=== PATIENT | male | born 1935 | race Caucasian/White ===

== ENCOUNTER 2017-02-14 08:00 | Outpatient (CLI) | payer MEDICARE, OTHER | END 2017-02-14 08:01 | disposition home or self-care (01) | LOC: LAB.F 08:00 | PROVIDERS: ATTEND Urology | DX: C61 Malignant neoplasm of prostate (principal) | CPT/HCPCS: 36415; 84153 ==

== ENCOUNTER 2017-04-18 09:48 | Outpatient (CLI) | payer MEDICARE ==
--- NOTE | 2017-04-19 09:03 | Nuclear Medicine Report ---
EXAM: NUCLEAR MEDICINE MYOCARDIAL PERFUSION STRESS AND REST EXAM DATE: 04/18/2017 02:28 PM. CLINICAL HISTORY: CHEST PRESSURE, coronary artery disease. COMPARISON: None. TECHNIQUE: Patient given 10.8 mCi technetium 99m sestamibi IV for the rest portion of the study. Afte r this, non-gated cardiac SPECT scintigraphy performed with multiplanar reformats. After an appropriate delay, patient exercised 6 minutes on a Omar treadmill protocol. Near peak stre ss, patient given 38.7 mCi technetium 99m sestamibi IV. After this, cardiac gated SPECT scintigraphy performed with multiplanar reformats, wall motion analysis, and left ventricular ejection fraction es timation. FINDINGS: There is a small focus of mild increased activity in the inferolateral mid ventricle on stress which normalizes on rest. Otherwise uniform activity in the left ventricular myocardium on stress and rest. Wall motion is uniform. Left ventricular ejection fraction estimated at 64%. IMPRESSION: 1. Small focus mild ischemia inferolateral mid ventricle. 2. Left ventricular ejection fraction estimated at 64%. [facility] Referring Provider Line: [phone] SITE ID: [id number]
== END 2017-04-18 09:49 | disposition home or self-care (01) ==
LOC: DI 09:48
PROVIDERS: ATTEND Internal Medicine
DX: I25.9 Chronic ischemic heart disease, unspecified (principal)
CPT/HCPCS: 78452; 93017; A9500

== ENCOUNTER 2017-05-04 09:32 | Outpatient (CLI) | payer MEDICARE | END 2017-05-04 09:33 | disposition home or self-care (01) | LOC: LAB.F 09:32 | PROVIDERS: ATTEND Internal Medicine | DX: E03.9 Hypothyroidism, unspecified (principal) | CPT/HCPCS: 36415; 84443 ==

== ENCOUNTER 2017-08-19 09:44 | Outpatient (CLI) | payer MEDICARE, OTHER | END 2017-08-19 09:45 | disposition home or self-care (01) | LOC: LAB.F 09:44 | PROVIDERS: ATTEND Urology | DX: C61 Malignant neoplasm of prostate (principal) | CPT/HCPCS: 36415; 84153 ==

== ENCOUNTER 2017-10-31 08:29 | Outpatient (CLI) | payer MEDICARE, OTHER ==
--- NOTE | 2017-10-31 10:29 | CT Report ---
CT OF ABDOMEN AND PELVIS WITHOUT CONTRAST: 10/31/2017 CLINICAL INDICATION: Flank pain. TECHNIQUE: Axial CT images of the abdomen and pelvis were obtained without intravenous contrast. COMPARISON: 04/12/2009. FINDINGS: Limited evaluation of the lung bases demonstrates a small hiatal hernia. ABDOMEN: The right kidney is atrophic. Right nonobstructing renal calculus has increased in size, now measuring 6 mm (previously 3 mm). The left kidney demonstrates cysts , but no nephrolithiasis or hydronephrosis. The previously noted left distal ureteral calculus has resolved. Allowing for the lack of intravenous contrast enhancement, the liver , spleen, pancreas and adrenal glands are unremarkable. The patient is status post cholecystectomy. No bowel dilatation, free gas, or free fluid is present. No abdominal adenopathy is seen. PELVIS: Fiducial markers are noted in the prostate bed. No distal hydroureter or ureterolithiasis is seen. No bladder calculus is appreciated. Sigmoid diverticulosis is present, without CT evidence of diverticulitis. Osseous structures demonstrate degenerative changes. IMPRESSION: ATROPHIC RIGHT KIDNEY, WITH INTERVAL INCREASE IN SIZE OF NONOBSTRUCTING RIGHT RENAL CALCULUS, NOW MEASURING 6 MM. RENAL CYSTS. NO HYDRONEPHROSIS. In accordance with CT protocol optimization, one or more of the following dose reduction techniques were utilized for this exam: automated exposure control, adjustment of mA and/or KV based on patient size, or use of iterative reconstructive technique. TD: 10/31/2017 10:28 MTDD
== END 2017-10-31 08:30 | disposition home or self-care (01) ==
LOC: DI 08:29
PROVIDERS: ATTEND Internal Medicine
DX: N26.1 Atrophy of kidney (terminal) (principal); N20.0 Calculus of kidney; Q61.02 Congenital multiple renal cysts
CPT/HCPCS: 74176

== ENCOUNTER 2017-11-07 11:24 | Outpatient (CLI) | payer MEDICARE, OTHER ==
[2017-11-09 20:02] LABS: TREPONEMA AB IGG NEGATIVE
[2017-11-09 21:32] LABS: ANGIOTENSIN-1-CONVERTING ENZYM <5 U/L (9-67)
[2017-11-10 17:06] LABS: 18 KD (IGG) BAND NON-REACTIVE; 23 KD (IGG) BAND NON-REACTIVE; 23 KD (IGM) BLOT NON-REACTIVE; 28 KD (IGG) BAND NON-REACTIVE; 30 KD (IGG) BAND NON-REACTIVE; 39 KD (IGG) BAND NON-REACTIVE; 39 KD (IGM) BLOT NON-REACTIVE; 41 KD (IGG) BAND REACTIVE; 41 KD (IGM) BLOT NON-REACTIVE; 45 KD (IGG) BAND NON-REACTIVE; 58 KD (IGG) BAND NON-REACTIVE; 66 KD (IGG) BAND NON-REACTIVE; 93 KD (IGG) BAND NON-REACTIVE
== END 2017-11-07 11:25 | disposition home or self-care (01) ==
LOC: LAB 11:24
PROVIDERS: ATTEND Internal Medicine
DX: H20.03 Secondary infectious iridocyclitis (principal); H30.899 Other chorioretinal inflammations, unspecified eye
CPT/HCPCS: 36415; 81599; 82164; 85651; 86140; 86480; 86617; 86780; 87040

== ENCOUNTER 2020-09-22 11:33 | Outpatient (CLI) | payer MEDICARE, OTHER | END 2020-09-22 11:34 | disposition home or self-care (01) | LOC: LAB.S 11:33 | PROVIDERS: ATTEND Radiology Radiation Oncology | DX: C61 Malignant neoplasm of prostate (principal) | CPT/HCPCS: 36415; 84153 ==

== ENCOUNTER 2020-12-10 10:09 | Outpatient (CLI) | payer MEDICARE, OTHER ==
[2020-12-10 15:29] LABS: ALBUMIN 4.3 g/dL (3.2-5.5); ALBUMIN/GLOBULIN RATIO 1.4 (1.0-2.2); ALKALINE PHOSPHATASE 62 IU/L (42-121); ALT ALANINE AMINOTRANSFERASE 29 IU/L (10-60); AST ASPARTATE AMINOTRANSFERASE 32 IU/L (10-42); BUN - BLOOD UREA NITROGEN 31 mg/dL (6-20); CALCIUM 9.4 mg/dL (8.5-10.3); CARBON DIOXIDE - CO2 27 mmol/L (21-32); CHLORIDE 105 mmol/L (101-111); CHOLESTEROL 198 mg/dL; CREATININE 1.4 mg/dL (0.6-1.2); GFR - MDRD 48 (>89); GLUCOSE 96 mg/dL (70-100); HDL CHOLESTEROL 50 mg/dL; LDL CHOLESTEROL,CALCULATED 101 mg/dL; POTASSIUM 4.4 mmol/L (3.5-5.0); SODIUM 140 mmol/L (135-145); TOTAL PROTEIN 7.3 g/dL (6.7-8.2); TRIGLYCERIDES 236 mg/dL; VLDL CHOLESTEROL 47 mg/dL
== END 2020-12-10 10:10 | disposition home or self-care (01) ==
LOC: LAB.S 10:09
PROVIDERS: ATTEND Family Medicine Sports Medicine
DX: E78.5 Hyperlipidemia, unspecified (principal)
CPT/HCPCS: 36415; 80053; 80061; 83721

== ENCOUNTER 2022-01-25 09:34 | Outpatient (CLI) | payer MEDICARE, OTHER ==
[2022-01-25 15:05] LABS: BASOPHILS # (AUTO) 0.1 10^3/uL (0.0-0.1); BASOPHILS % (AUTO) 0.9 %; EOSINOPHILS # (AUTO) 0.2 10^3/uL (0.0-0.7); EOSINOPHILS % (AUTO) 3.5 %; HCT - HEMATOCRIT 34.6 % (42.0-52.0); HGB - HEMOGLOBIN 11.1 g/dL (14.0-18.0); LYMPHOCYTES # (AUTO) 1.1 10^3/uL (1.5-3.5); LYMPHOCYTES % (AUTO) 19.8 %; MEAN CORPUSCULAR HGB CONC 32.1 g/dL (32.0-36.0); MEAN CORPUSCULAR VOLUME 93.5 fL (80.0-94.0); MONOCYTES # (AUTO) 0.5 10^3/uL (0.0-1.0); MONOCYTES % (AUTO) 8.6 %; NEUTROPHILS # (AUTO) 3.8 10^3/uL (1.5-6.6); NEUTROPHILS % (AUTO) 66.8 %; PLT - PLATELET COUNT 177 10^3/uL (130-450); RED CELL DISTRIBUTION WIDTH 14.6 % (12.0-15.0); WHITE BLOOD COUNT 5.7 x10^3/uL (4.8-10.8)
[2022-01-25 15:29] LABS: ALBUMIN 4.2 g/dL (3.2-5.5); ALBUMIN/GLOBULIN RATIO 1.6 (1.0-2.2); ALKALINE PHOSPHATASE 57 IU/L (42-121); ALT ALANINE AMINOTRANSFERASE 17 IU/L (10-60); AST ASPARTATE AMINOTRANSFERASE 25 IU/L (10-42); BILIRUBIN,TOTAL 0.5 mg/dL (0.2-1.0); BUN - BLOOD UREA NITROGEN 42 mg/dL (6-20); CALCIUM 9.2 mg/dL (8.5-10.3); CARBON DIOXIDE - CO2 24 mmol/L (21-32); CHLORIDE 104 mmol/L (101-111); CHOL/HDL RATIO 3.4 (<5.0); CHOLESTEROL 169 mg/dL; CREATININE 1.6 mg/dL (0.6-1.2); GFR - MDRD 41 (>89); GLUCOSE 92 mg/dL (70-100); HDL CHOLESTEROL 49 mg/dL; LDL CHOLESTEROL,CALCULATED 87 mg/dL; LDL/HDL RATIO 1.8 (<3.6); POTASSIUM 4.5 mmol/L (3.5-5.0); SODIUM 135 mmol/L (135-145); TOTAL PROTEIN 6.8 g/dL (6.7-8.2); TRIGLYCERIDES 164 mg/dL; VLDL CHOLESTEROL 33 mg/dL
[2022-01-25 15:33] LABS: THYROID STIMULATING HORMONE 6.23 uIU/mL (0.34-5.60)
[2022-01-25 15:35] LABS: FREE T4 (FREE THYROXINE) 0.79 ng/dL (0.58-1.64)
== END 2022-01-25 09:35 | disposition home or self-care (01) ==
LOC: LAB.S 09:34
PROVIDERS: ATTEND Family Medicine Sports Medicine
DX: E03.9 Hypothyroidism, unspecified (principal); I10 Essential (primary) hypertension; C61 Malignant neoplasm of prostate; E78.5 Hyperlipidemia, unspecified
CPT/HCPCS: 36415; 80053; 80061; 83721; 84153; 84439; 84443; 85025

== ENCOUNTER 2022-04-26 10:27 | Outpatient (CLI) | payer MEDICARE, OTHER | END 2022-04-26 10:28 | disposition critical access hospital (66) | LOC: EMS 10:27 | DX: R53.1 Weakness (principal); R42 Dizziness and giddiness | CPT/HCPCS: A0425; A0429 ==

== ENCOUNTER 2022-04-26 10:53 | Emergency (ER) | payer MEDICARE, OTHER ==
[2022-04-26] MEDS ORDERED: SODIUM CHLORIDE 0.9% 1,000 ML IV STA (11:02)
[2022-04-26 11:17] LABS: BASOPHILS % (AUTO) 0.5 %; EOSINOPHILS # (AUTO) 0.1 10^3/uL (0.0-0.7); EOSINOPHILS % (AUTO) 0.7 %; LYMPHOCYTES # (AUTO) 1.1 10^3/uL (1.5-3.5); LYMPHOCYTES % (AUTO) 13.1 %; MEAN CORPUSCULAR HEMOGLOBIN 30.2 pg (27.0-31.0); MEAN CORPUSCULAR HGB CONC 32.5 g/dL (32.0-36.0); MONOCYTES # (AUTO) 0.5 10^3/uL (0.0-1.0); MONOCYTES % (AUTO) 5.8 %; NEUTROPHILS # (AUTO) 6.4 10^3/uL (1.5-6.6); NEUTROPHILS % (AUTO) 79.2 %; PLT - PLATELET COUNT 154 10^3/uL (130-450); RED BLOOD COUNT 2.15 10^6/uL (4.70-6.10); RED CELL DISTRIBUTION WIDTH 15.6 % (12.0-15.0); WHITE BLOOD COUNT 8.1 x10^3/uL (4.8-10.8)
[2022-04-26 11:20] LABS: HGB - HEMOGLOBIN 6.5 g/dL (14.0-18.0)
[2022-04-26 11:27] LABS: ALBUMIN 3.7 g/dL (3.2-5.5); ALBUMIN/GLOBULIN RATIO 1.5 (1.0-2.2); BILIRUBIN,TOTAL 0.6 mg/dL (0.2-1.0); CALCIUM 9.4 mg/dL (8.5-10.3); CREATININE 1.7 mg/dL (0.6-1.2); POTASSIUM 4.2 mmol/L (3.5-5.0); TOTAL PROTEIN 6.2 g/dL (6.7-8.2)
--- NOTE | 2022-04-26 11:50 | XRAY Report ---
PROCEDURE: Chest 1 View X-Ray INDICATIONS: chest pain TECHNIQUE: One view of the chest was acquired. COMPARISON: None. FINDINGS: Surgical changes and devices: Median sternotomy wires Surgical clips are seen. Lungs and pleura: No pleural effusions or pneumothorax. Lungs are clear. Mediastinum: Mediastinal contours appear normal. Heart size is normal. Bones and chest wall: No suspicious bony lesions. Overlying soft tissues appear unremarkable. IMPRESSION: No acute cardiopulmonary pathology. Reviewed by: Henry Whitaker MD on 04/26/2022 11:48 AM PDT Approved by: Henry Whitaker MD on 04/26/2022 11:48 AM PDT Station ID: [id number]
[2022-04-26] MEDS ORDERED: NITROGLYCERIN SL 0.4 MG TABLET SL STA (11:52)
[2022-04-26 12:44] LABS: BILIRUBIN,URINE NEGATIVE (NEGATIVE); CLARITY,URINE CLEAR (CLEAR); GLUCOSE, URINE (UA) NEGATIVE (NEGATIVE); KETONES,URINE (UA) NEGATIVE (NEGATIVE); LEUKOCYTE ESTERASE, URINE NEGATIVE (NEGATIVE); NITRITE,URINE NEGATIVE (NEGATIVE); OCCULT BLOOD,URINE NEGATIVE (NEGATIVE); PROTEIN,URINE NEGATIVE (NEGATIVE); UROBILINOGEN,URINE 0.2 (NORMAL) E.U./dL (NORMAL)
[2022-04-26 14:06] LABS: B. PARAPERTUSSIS- RESP PCR PAN NOT DETECTED; B. PERTUSSIS- RESP PCR PANEL NOT DETECTED; C. PNEUMONIAE- RESP PCR PANEL NOT DETECTED; CORONAVIRUS 229E-RESP PCR NOT DETECTED; CORONAVIRUS HKU1-RESP PCR NOT DETECTED; CORONAVIRUS NL63-RESP PCR NOT DETECTED; CORONAVIRUS OC43-RESP PCR NOT DETECTED; HUMAN METAPNEUMOVIRUS NOT DETECTED; INFLUENZA A- RESP PCR PANEL NOT DETECTED; INFLUENZA B - RESP PCR PANEL NOT DETECTED; M. PNEUMONIAE- RESP PCR PANEL NOT DETECTED; PARAINFLUENZA VIRUS 1 NOT DETECTED; PARAINFLUENZA VIRUS 2 NOT DETECTED; PARAINFLUENZA VIRUS 3 NOT DETECTED; PARAINFLUENZA VIRUS 4 NOT DETECTED; RHINOVIRUS/ENTEROVIRUS NOT DETECTED; RSV- RESP PCR PANEL NOT DETECTED; SARS-CoV-2 -RESP PCR PANEL NOT DETECTED
--- NOTE | 2022-04-26 18:27 | ED Physician Documentation ---
History of Present Illness - Stated complaint Stated Complaint: GEN WEAKNESS/DIZZY - Chief complaint Chief Complaint: General - History obtained from History obtained from: Patient, Family - Additonal information Additional information: The patient is brought to the emergency department by EMS for chief complaint of generalized weakness. He states that is, for the last 3 days and he is not really sure why he is weak. He denies any recent illnesses. He states that he is just felt as though it is hard for him to stand up even though his legs cannot hold him up. He states that he just feels as though his trunk and his body are too weak to be up so has been crawling around on the floor. He states he has a longstanding history of "angina" but he does not take his nitroglycerin for this. He sees a machine set up technician Dr. Lopez according to his . Patient states he just saw his machine set up technician a couple of weeks ago and got "a clean bill of health". He states he was told to come back in a year. The patient states that his episodes of chest pain have been about as his normal, and they just go away with rest. The patient states that he just felt so weak this morning and then he had another anginal episode so decided to come here. Patient denies shortness of breath, fevers, cough, or dysuria. No nausea or vomiting. No abdominal pain. The patient does note that he was started on iron a couple of weeks ago by his primary care provider. He states that his "iron was low". He denies any obvious blood in his stools, though he has had dark stools since taking iron. He does note however that he thought he noticed a little bit of maroon coloration in the water around his stool couple of days ago. No other complaints at this time. He states he feels fine just sitting in the bed. Review of Systems Ten Systems: 10 systems reviewed and negative Constitutional: reports: Reviewed and negative Eyes: reports: Reviewed and negative Ears: reports: Reviewed and negative Nose: reports: Reviewed and negative Throat: reports: Reviewed and negative Cardiac: reports: Chest pain / pressure Respiratory: reports: Reviewed and negative GI: reports: Reviewed and negative : reports: Reviewed and negative Skin: reports: Reviewed and negative Musculoskeletal: reports: Reviewed and negative Neurologic: reports: Generalized weakness Psychiatric: reports: Reviewed and negative Endocrine: reports: Reviewed and negative Immunocompromised: reports: Reviewed and negative PD PAST MEDICAL HISTORY - Past Medical History Cardiovascular: Hypertension, High cholesterol, Coronary artery disease Respiratory: None Endocrine/Autoimmune: HyPOthyroidism GI: Hemorrhoids : Benign prostate hypertrophy, Renal insuffiency, Kidney stones HEENT: Glaucoma Musculoskeletal: Gout Derm: Rosacea - Past Surgical History General: Cholecystectomy, Colonoscopy Cardiovascular: CABG, Coronary stent HEENT: Cataracts - Present Medications Home Medications: Ambulatory Orders Medication Instructions Recorded Confirmed Atenolol 50 mg PO DAILY 05/25/13 05/25/13 Levothyroxine [Synthroid] 125 mcg PO QDAC 05/25/13 05/25/13 Pravastatin Sodium 60 mg PO DAILY 05/25/13 05/25/13 allopurinoL [Zyloprim] 100 mg PO DAILY 05/25/13 05/25/13 - Allergies Allergies/Adverse Reactions: Allergies Allergy/AdvReac Type Severity Reaction Status Date / Time simvastatin AdvReac Intermediate see below Verified 04/26/22 11:03 amlodipine AdvReac Mild fatigue Verified 04/26/22 11:03 PD ED PE NORMAL - Vitals Vital signs reviewed: Yes - General General: Alert and oriented X 3, No acute distress, Well developed/nourished - HEENT HEENT: Atraumatic, PERRL, EOMI, Moist mucous membranes - Neck Neck: Supple, no meningeal sign - Cardiac Cardiac: RRR, No murmur, Strong equal pulses - Respiratory Respiratory: No respiratory distress, Clear bilaterally - Abdomen Abdomen: Soft, Non tender, Non distended - Derm Derm: Warm and dry, Other (Mild pallor) - Extremities Extremities: No deformity, No edema - Neuro Neuro: Alert and oriented X 3, behavioral psychologist 2-12 intact, Normal speech - Psych Psych: Normal mood, Normal affect Results - Vitals Vitals: Vital Signs - 24 hr 04/26/22 04/26/22 04/26/22 10:59 11:22 12:13 Temperature 36.4 C L Heart Rate 86 82 98 Heart Rate [ Monitoring electrodes] Respiratory 20 22 29 H Rate Blood Pressure 143/80 H 137/70 H 180/89 H Blood Pressure [Right Brachial artery] O2 Saturation 98 99 100 If not protocol : Oxygen Flow, liters/minute 04/26/22 04/26/22 04/26/22 13:40 13:52 14:00 Temperature 36.8 C 36.8 C 36.8 C Heart Rate 92 Heart Rate [ 86 92 Monitoring electrodes] Respiratory 22 17 17 Rate Blood Pressure 141/78 H Blood Pressure 169/79 H 141/78 H [Right Brachial artery] O2 Saturation 100 98 98 If not protocol 1 : Oxygen Flow, liters/minute 04/26/22 04/26/22 04/26/22 14:01 14:16 14:46 Temperature 36.8 C 36.8 C 36.5 C Heart Rate Heart Rate [ 88 88 89 Monitoring electrodes] Respiratory 22 18 19 Rate Blood Pressure Blood Pressure 135/77 H 139/81 H 137/77 H [Right Brachial artery] O2 Saturation 98 100 100 If not protocol 1 1 1 : Oxygen Flow, liters/minute 04/26/22 04/26/22 04/26/22 15:16 15:46 16:00 Temperature 36.8 C 36.7 C Heart Rate 96 Heart Rate [ 85 100 Monitoring electrodes] Respiratory 21 16 18 Rate Blood Pressure 140/86 H Blood Pressure 138/90 H 160/90 H [Right Brachial artery] O2 Saturation 98 100 99 If not protocol 1 1 1 : Oxygen Flow, liters/minute 04/26/22 04/26/22 04/26/22 16:16 18:14 18:18 Temperature 36.8 C 36.9 C Heart Rate 104 H Heart Rate [ 99 100 100 Monitoring electrodes] Respiratory 20 28 H 18 Rate Blood Pressure 180/105 H Blood Pressure 160/90 H 160/100 H 176/99 H [Right Brachial artery] O2 Saturation 100 97 98 If not protocol 1 1 1 : Oxygen Flow, liters/minute Oxygen O2 Source Nasal cannula Oxygen Flow Rate 1 - EKG (time done) 1055 Rate: Rate (enter#) (84) Rhythm: NSR [place]: LAD Intervals: Normal MA QRS: Normal Ischemia: Normal ST segments, Non specific changes Compare to prior EKG: Old EKG unavailable Computer interpretation: Agree with computer - Labs Labs: Microbiology 04/26/22 13:36 Occult Blood - Final Stool Laboratory Tests 04/26/22 04/26/22 04/26/22 11:11 11:11 11:11 WBC 8.1 RBC 2.15 L Hgb 6.5 L* Hct 20.0 L* MCV 93.0 MCH 30.2 MCHC 32.5 RDW 15.6 H Plt Count 154 MPV 10.0 Neut # (Auto) 6.4 Lymph # (Auto) 1.1 L Lea # (Auto) 0.5 Eos # (Auto) 0.1 Baso # (Auto) 0.0 Absolute Nucleated RBC 0.00 Nucleated RBC % 0.0 Sodium 140 Potassium 4.2 Chloride 108 Carbon Dioxide 23 Anion Gap 9.0 BUN 67 H Creatinine 1.7 H Estimated GFR (MDRD) 38 L Glucose 115 H Calcium 9.4 Total Bilirubin 0.6 AST 23 ALT 17 Alkaline Phosphatase 38 L Troponin I High Sens 9.2 Total Protein 6.2 L Albumin 3.7 Globulin 2.5 Albumin/Globulin Ratio 1.5 Lipase 52 H Urine Color Urine Clarity Urine pH Ur Specific [place] Urine Protein Urine Glucose (UA) Urine Ketones Urine Occult Blood Urine Nitrite Urine Bilirubin Urine Urobilinogen Ur Leukocyte Esterase Ur Microscopic Review Urine Culture Comments Nasal Adenovirus (PCR) Nasal B. parapertussis DNA (PCR) Nasal Coronavir 229E PCR Nasal Coronavir HKU1 PCR Nasal Coronavir NL63 PCR Nasal Coronavir OC43 PCR Nasal Enterovir/Rhinovir PCR Nasal Influenza B PCR Nasal Influenza A PCR Nasal Parainfluen 1 PCR Nasal Parainfluen 2 PCR Nasal Parainfluen 3 PCR Nasal Parainfluen 4 PCR Nasal RSV (PCR) Nasal B.pertussis DNA PCR Nasal C.pneumoniae (PCR) Geo Human Metapneumo PCR Nasal M.pneumoniae (PCR) Nasal SARS-CoV-2 (PCR) Blood Type Blood Type Recheck Antibody Screen Crossmatch IS Only 04/26/22 04/26/22 04/26/22 11:11 12:17 12:35 WBC RBC Hgb Hct MCV MCH MCHC RDW Plt Count MPV Neut # (Auto) Lymph # (Auto) Lea # (Auto) Eos # (Auto) Baso # (Auto) Absolute Nucleated RBC Nucleated RBC % Sodium Potassium Chloride Carbon Dioxide Anion Gap BUN Creatinine Estimated GFR (MDRD) Glucose Calcium Total Bilirubin AST ALT Alkaline Phosphatase Troponin I High Sens Total Protein Albumin Globulin Albumin/Globulin Ratio Lipase Urine Color LT. YELLOW Urine Clarity CLEAR Urine pH 6.0 Ur Specific [place] 1.015 Urine Protein NEGATIVE Urine Glucose (UA) NEGATIVE Urine Ketones NEGATIVE Urine Occult Blood NEGATIVE Urine Nitrite NEGATIVE Urine Bilirubin NEGATIVE Urine Urobilinogen 0.2 (NORMAL) Ur Leukocyte Esterase NEGATIVE Ur Microscopic Review NOT INDICATED Urine Culture Comments NOT INDICATED Nasal Adenovirus (PCR) Nasal B. parapertussis DNA (PCR) Nasal Coronavir 229E PCR Nasal Coronavir HKU1 PCR Nasal Coronavir NL63 PCR Nasal Coronavir OC43 PCR Nasal Enterovir/Rhinovir PCR Nasal Influenza B PCR Nasal Influenza A PCR Nasal Parainfluen 1 PCR Nasal Parainfluen 2 PCR Nasal Parainfluen 3 PCR Nasal Parainfluen 4 PCR Nasal RSV (PCR) Nasal B.pertussis DNA PCR Nasal C.pneumoniae (PCR) Geo Human Metapneumo PCR Nasal M.pneumoniae (PCR) Nasal SARS-CoV-2 (PCR) Blood Type A POSITIVE Blood Type Recheck A POSITIVE Antibody Screen NEGATIVE Crossmatch IS Only See Detail 04/26/22 04/26/22 13:04 13:06 WBC RBC Hgb Hct MCV MCH MCHC RDW Plt Count MPV Neut # (Auto) Lymph # (Auto) Lea # (Auto) Eos # (Auto) Baso # (Auto) Absolute Nucleated RBC Nucleated RBC % Sodium Potassium Chloride Carbon Dioxide Anion Gap BUN Creatinine Estimated GFR (MDRD) Glucose Calcium Total Bilirubin AST ALT Alkaline Phosphatase Troponin I High Sens 16.7 Total Protein Albumin Globulin Albumin/Globulin Ratio Lipase Urine Color Urine Clarity Urine pH Ur Specific [place] Urine Protein Urine Glucose (UA) Urine Ketones Urine Occult Blood Urine Nitrite Urine Bilirubin Urine Urobilinogen Ur Leukocyte Esterase Ur Microscopic Review Urine Culture Comments Nasal Adenovirus (PCR) NOT DETECTED Nasal B. parapertussis DNA (PCR) NOT DETECTED Nasal Coronavir 229E PCR NOT DETECTED Nasal Coronavir HKU1 PCR NOT DETECTED Nasal Coronavir NL63 PCR NOT DETECTED Nasal Coronavir OC43 PCR NOT DETECTED Nasal Enterovir/Rhinovir PCR NOT DETECTED Nasal Influenza B PCR NOT DETECTED Nasal Influenza A PCR NOT DETECTED Nasal Parainfluen 1 PCR NOT DETECTED Nasal Parainfluen 2 PCR NOT DETECTED Nasal Parainfluen 3 PCR NOT DETECTED Nasal Parainfluen 4 PCR NOT DETECTED Nasal RSV (PCR) NOT DETECTED Nasal B.pertussis DNA PCR NOT DETECTED Nasal C.pneumoniae (PCR) NOT DETECTED Geo Human Metapneumo PCR NOT DETECTED Nasal M.pneumoniae (PCR) NOT DETECTED Nasal SARS-CoV-2 (PCR) NOT DETECTED Blood Type Blood Type Recheck Antibody Screen Crossmatch IS Only PD MEDICAL DECISION MAKING - ED course Complexity details: reviewed old records, reviewed results, re-evaluated patient, considered differential, d/w patient ED course: The patient was worked up with laboratory studies, including troponin, which was normal x2. He did have an episode of chest pain after twisting and turning over in bed to let the x-ray plate be put under him. He states he felt a strain in his chest when he did this, but that the pain felt like his angina. The patient's vital signs remained stable throughout this episode and nitroglycerin did not affect the pain. Patient's EKG was unremarkable for ischemic changes. He was found to have hemoglobin of 6.5, which was a drastic change from hemoglobin of over 11 in January. Rectal exam was performed and showed brownish- wheeler stool which was not grossly bloody. Guaiac result is pending at this time. The patient consented to have a transfusion and at the time of this dictation, has received 1 full unit and is beginning his second. I spoke with Dr. Walker to in hopes of getting this patient admitted, but she stated there were no further beds and that we would not be able to accommodate him as an inpatient tonight. The patient will finish his packed red cells and have a repeat CBC after this, as well as an ambulatory test in the emergency department. He is signed out to Dr. Wade at change of shift, pending these things and final disposition. Departure - Departure Clinical Impression: Severe anemia, Symptomatic anemia, Generalized weakness
[2022-04-26 22:10] LABS: HCT - HEMATOCRIT 27.5 % (42.0-52.0)
[2022-04-26 22:33] VITALS: BP 140/98
--- NOTE | 2022-04-26 22:34 | ED Physician Documentation ---
ED Addendum - Addendum Addendum: 04/26/22 22:33 Patient has received blood and repeat H&H is 9.0. Patient states he is feeling much better and is ambulatory to and from the bathroom without assistance. Patient will be discharged home, strict ED return precautions discussed with patient and
== END 2022-04-26 22:40 | disposition home or self-care (01) ==
LOC: EDUNIT# → ED 10:53
DX: D64.9 Anemia, unspecified (principal); R53.1 Weakness; I10 Essential (primary) hypertension; I25.10 Atherosclerotic heart disease of native coronary artery without angina pectoris; E03.9 Hypothyroidism, unspecified; N40.0 Benign prostatic hyperplasia without lower urinary tract symptoms; E78.00 Pure hypercholesterolemia, unspecified; Z95.1 Presence of aortocoronary bypass graft; Z95.5 Presence of coronary angioplasty implant and graft; R07.9 Chest pain, unspecified; Z20.822 Contact with and (suspected) exposure to COVID-19
CPT/HCPCS: 36415; 36430; 71045; 80053; 81003; 82270; 83690; 84484; 85014; 85018; 85025; 86850; 86900; 86901; 86920; 87633; 93005; 99284; 99285; A9270; P9016; 81001; 87086

== ENCOUNTER 2022-08-25 11:51 | Inpatient (IN) | payer MEDICARE, OTHER ==
[2022-08-25] MEDS ORDERED: SODIUM CHLORIDE 0.9% 1,000 ML IV STA ×2 (12:07→13:36)
--- NOTE | 2022-08-25 12:14 | ED Physician Documentation ---
History of Present Illness - Stated complaint Stated Complaint: MALE - Chief complaint Chief Complaint: General - Additonal information Additional information: 86-year-old male presents to the emergency department for evaluation of rectal bleeding. He reports that for the last 2 days he is been having fairly persistent rectal bleeding a volume which he estimates to be 2 units of blood. He is denying any abdominal pain or vomiting. No chest pain or shortness of air though he is somewhat lethargic and reports feeling dizzy and lightheaded. he does not appear to be anticoagulated Patient reports that he had gone to the [employer] this morning via bus. When feeling lightheaded and dizzy there somebody from the bank and drove him to the emergency department. He has received blood transfusion here in the past. Denies any previous history of rectal bleeding. On on presentation he is awake awake though somewhat slow to respond to questions. The initial blood pressure in triage was 80/40 without tachycardia though when laying supine in bed he appears to have blood pressure of 134/66. He does have palpable pulses and is warm and well-perfused otherwise. Patient states that he had seeds implanted in his prostate in 2017. He reports that since then he has lower GI bleeding each August since 2019. Meds: Isorbide, metoprolol, lisinopril, levothyroxine, atorvastatin Review of Systems Constitutional: denies: Fever GI: reports: Bloody / black stool. denies: Abdominal Pain : reports: Reviewed and negative Skin: reports: Reviewed and negative PD PAST MEDICAL HISTORY - Past Medical History Cardiovascular: Hypertension, High cholesterol, Coronary artery disease Respiratory: None Endocrine/Autoimmune: HyPOthyroidism GI: Hemorrhoids : Benign prostate hypertrophy, Renal insuffiency, Kidney stones HEENT: Glaucoma Musculoskeletal: Gout Derm: Rosacea - Past Surgical History General: Cholecystectomy, Colonoscopy Cardiovascular: CABG, Coronary stent HEENT: Cataracts - Present Medications Home Medications: Ambulatory Orders Medication Instructions Recorded Confirmed Atenolol 50 mg PO DAILY 05/25/13 05/25/13 Levothyroxine [Synthroid] 125 mcg PO QDAC 05/25/13 05/25/13 Pravastatin Sodium 60 mg PO DAILY 05/25/13 05/25/13 allopurinoL [Zyloprim] 100 mg PO DAILY 05/25/13 05/25/13 - Allergies Allergies/Adverse Reactions: Allergies Allergy/AdvReac Type Severity Reaction Status Date / Time simvastatin AdvReac Intermediate see below Verified 08/25/22 12:08 amlodipine AdvReac Mild fatigue Verified 08/25/22 12:08 PD ED PE EXPANDED - General General: No acute distress, Lethargic - Cardiac Cardiac: Regular Rate, Radial strong equal (1+ bilaterally), Pedal strong equal (1+ bilaterally), Cap refill < 2 sec. No: Murmur Present - Respiratory Respiratory: Clear to ausultation marshall. No: Labored - Abdomen Abdomen: Normal Bowel sounds. No: Tender to palpation - Rectal Rectal: Drop Count Associate present, Other (joy hematochezia; maroon) - Derm Derm: Normal color, Warm and dry. No: Rash - Neuro Neuro: Lethargic, CNII-XII intact - GCS Eye Opening: To Voice Motor: Obeys Commands Verbal: Oriented Total: 14 Results - Vitals Vitals: Vital Signs - 24 hr 08/25/22 08/25/22 08/25/22 12:08 12:17 12:32 Temperature 36.5 C 36.5 C Heart Rate 76 68 68 Heart Rate [ Sitting] Heart Rate [ Standing] Heart Rate [ Supine] Respiratory 12 18 17 Rate Blood Pressure 80/40 L 134/66 H 128/54 L Blood Pressure [Sitting] Blood Pressure [Standing] Blood Pressure [Supine] O2 Saturation 100 100 98 08/25/22 08/25/22 08/25/22 13:02 13:32 14:02 Temperature Heart Rate 60 66 66 Heart Rate [ Sitting] Heart Rate [ Standing] Heart Rate [ Supine] Respiratory 12 16 18 Rate Blood Pressure 110/65 140/80 H 122/68 Blood Pressure [Sitting] Blood Pressure [Standing] Blood Pressure [Supine] O2 Saturation 100 98 100 08/25/22 08/25/22 08/25/22 14:23 14:30 15:00 Temperature 36.5 C Heart Rate 66 64 Heart Rate [ 75 Sitting] Heart Rate [ 79 Standing] Heart Rate [ 66 Supine] Respiratory 18 16 Rate Blood Pressure 128/54 L 120/60 Blood Pressure 138/72 H [Sitting] Blood Pressure 122/68 [Standing] Blood Pressure 128/54 L [Supine] O2 Saturation 100 98 08/25/22 08/25/22 08/25/22 15:30 16:00 16:30 Temperature Heart Rate 80 82 85 Heart Rate [ Sitting] Heart Rate [ Standing] Heart Rate [ Supine] Respiratory 16 16 22 Rate Blood Pressure 130/60 110/60 98/67 Blood Pressure [Sitting] Blood Pressure [Standing] Blood Pressure [Supine] O2 Saturation 100 100 100 08/25/22 08/25/22 17:00 17:25 Temperature 36.5 C Heart Rate 74 74 Heart Rate [ Sitting] Heart Rate [ Standing] Heart Rate [ Supine] Respiratory 23 23 Rate Blood Pressure 98/62 98/62 Blood Pressure [Sitting] Blood Pressure [Standing] Blood Pressure [Supine] O2 Saturation 100 100 Oxygen O2 Source Room air - EKG (time done) 1241 Rate: Rate (enter#) (60) Rhythm: NSR Gunpowder: LAD Intervals: Normal [place]. No: Prolonged QT QRS: Poor R wave progression Compare to prior EKG: Old EKG unavailable Computer interpretation: Agree with computer - Labs Labs: Laboratory Tests 08/25/22 08/25/22 08/25/22 12:11 12:11 12:11 WBC 10.2 RBC 3.93 L Hgb 10.7 L Hct 34.8 L MCV 88.5 MCH 27.2 MCHC 30.7 L RDW 18.1 H Plt Count 214 MPV 9.8 Neut # (Auto) 8.1 H Lymph # (Auto) 1.1 L [place] # (Auto) 0.7 Eos # (Auto) 0.1 Baso # (Auto) 0.1 Absolute Nucleated RBC 0.00 Nucleated RBC % 0.0 PT 10.8 INR 1.0 Sodium Potassium Chloride Carbon Dioxide Anion Gap BUN Creatinine Estimated GFR (MDRD) Glucose Lactic Acid Calcium Total Bilirubin AST ALT Alkaline Phosphatase Troponin I High Sens Total Protein Albumin Globulin Albumin/Globulin Ratio Lipase TSH Free T4 Nasal Adenovirus (PCR) Nasal B. parapertussis DNA (PCR) Nasal Coronavir 229E PCR Nasal Coronavir HKU1 PCR Nasal Coronavir NL63 PCR Nasal Coronavir OC43 PCR Nasal Enterovir/Rhinovir PCR Nasal Influenza B PCR Nasal Influenza A PCR Nasal Parainfluen 1 PCR Nasal Parainfluen 2 PCR Nasal Parainfluen 3 PCR Nasal Parainfluen 4 PCR Nasal RSV (PCR) Nasal B.pertussis DNA PCR Nasal C.pneumoniae (PCR) Geo Human Metapneumo PCR Nasal M.pneumoniae (PCR) Nasal SARS-CoV-2 (PCR) Blood Type A POSITIVE Antibody Screen NEGATIVE 08/25/22 08/25/22 08/25/22 12:11 12:11 12:11 WBC RBC Hgb Hct MCV MCH MCHC RDW Plt Count MPV Neut # (Auto) Lymph # (Auto) [place] # (Auto) Eos # (Auto) Baso # (Auto) Absolute Nucleated RBC Nucleated RBC % PT INR Sodium 135 Potassium 4.4 Chloride 101 Carbon Dioxide 21 Anion Gap 13.0 BUN 31 H Creatinine 1.9 H Estimated GFR (MDRD) 34 L Glucose 153 H Lactic Acid Calcium 9.4 Total Bilirubin 0.7 AST 25 ALT 18 Alkaline Phosphatase 55 Troponin I High Sens 5.7 Total Protein 6.7 Albumin 3.8 Globulin 2.9 Albumin/Globulin Ratio 1.3 Lipase 60 H TSH 2.96 Free T4 0.70 Nasal Adenovirus (PCR) Nasal B. parapertussis DNA (PCR) Nasal Coronavir 229E PCR Nasal Coronavir HKU1 PCR Nasal Coronavir NL63 PCR Nasal Coronavir OC43 PCR Nasal Enterovir/Rhinovir PCR Nasal Influenza B PCR Nasal Influenza A PCR Nasal Parainfluen 1 PCR Nasal Parainfluen 2 PCR Nasal Parainfluen 3 PCR Nasal Parainfluen 4 PCR Nasal RSV (PCR) Nasal B.pertussis DNA PCR Nasal C.pneumoniae (PCR) Geo Human Metapneumo PCR Nasal M.pneumoniae (PCR) Nasal SARS-CoV-2 (PCR) Blood Type Antibody Screen 08/25/22 08/25/22 08/25/22 12:14 12:50 13:53 WBC RBC Hgb 8.6 L Hct 28.6 L MCV MCH MCHC RDW Plt Count MPV Neut # (Auto) Lymph # (Auto) [place] # (Auto) Eos # (Auto) Baso # (Auto) Absolute Nucleated RBC Nucleated RBC % PT INR Sodium Potassium Chloride Carbon Dioxide Anion Gap BUN Creatinine Estimated GFR (MDRD) Glucose Lactic Acid 3.1 H* Calcium Total Bilirubin AST ALT Alkaline Phosphatase Troponin I High Sens Total Protein Albumin Globulin Albumin/Globulin Ratio Lipase TSH Free T4 Nasal Adenovirus (PCR) NOT DETECTED Nasal B. parapertussis DNA (PCR) NOT DETECTED Nasal Coronavir 229E PCR NOT DETECTED Nasal Coronavir HKU1 PCR NOT DETECTED Nasal Coronavir NL63 PCR NOT DETECTED Nasal Coronavir OC43 PCR NOT DETECTED Nasal Enterovir/Rhinovir PCR NOT DETECTED Nasal Influenza B PCR NOT DETECTED Nasal Influenza A PCR NOT DETECTED Nasal Parainfluen 1 PCR NOT DETECTED Nasal Parainfluen 2 PCR NOT DETECTED Nasal Parainfluen 3 PCR NOT DETECTED Nasal Parainfluen 4 PCR NOT DETECTED Nasal RSV (PCR) NOT DETECTED Nasal B.pertussis DNA PCR NOT DETECTED Nasal C.pneumoniae (PCR) NOT DETECTED Geo Human Metapneumo PCR NOT DETECTED Nasal M.pneumoniae (PCR) NOT DETECTED Nasal SARS-CoV-2 (PCR) NOT DETECTED Blood Type Antibody Screen - Rads (name of study) cxr Radiology: Final report received (No acute cardiopulmonary process) CT abd Radiology: Final report received (Findings suspicious for acute proximal sigmoid colon diverticular bleed. There is high density material within the diverticulum and subadjacent lumen. Mild aneurysmal dilation of infrarenal abdominal aorta measuring 3.6 cm with moderate thrombus.) PD Medical Decision Making - ED course Complexity details: reviewed results, re-evaluated patient, d/w patient, d/w strategy execution consultant (Nikolas) ED course: 86-year-old male presents emergency department for evaluation of rectal bleeding that began 2 days ago. He states that he is simply having a large volume of rectal bleeding but no significant stool output. He had gone to the [employer] this morning via bus and while there began to feel lightheaded and dizzy. He used the [employer] bathroom and defecated a large amount of blood and requested a community member drive him to the ER. On presentation to the emergency department the patient was hypotensive 80/40 in triage. However when he was brought back to the exam room and laid supine his blood pressure had normalized thus I suspect he was likely orthostatic. We immediately attended to the patient placed 2 large-bore IVs. A type and screen was ordered. The patient screening CBC showed a hemoglobin of 10.7. However on repeat about 2-1/2 hours later it had decreased to 8.7 and the patient had continued to have rectal bleeding in the emergency department. His electrolytes show chronic kidney disease that is essentially unchanged with a GFR of 37. His lactate was elevated at 3.1. Here in the emergency department he was given 2 L of IV fluids. Initially when he presented I discussed the case with our on-call surgeon Dr. Connor. Given the normal hemoglobin and the relative hemodynamic stability a CT of the abdomen with angio is pending. But likely this patient will require admission to the hospital for a colonoscopy to evaluate for the source of bleeding. Subsequently the CT scan was completed and it did show a lower sigmoid diverticular bleed. There was an associated finding of an abdominal aneurysm measuring 3.5 cm with thrombus formation. 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 I read discussed the CT results and the new H&H with Dr. Connor and the patient will be brought into the hospital for this GI bleed. She will order a bowel prep so that she can plan to do the colonoscopy tomorrow. Patient will be admitted to the hospitalist service. I did speak with Dr. Walker for hospitalist on today. She agrees to admit the patient. However with the thrombus formation seen in the abdominal aneurysm she does request that I consult with vascular to determine long-term recommendations for anticoagulation. At this time that consult is pending. I have discussed with the patient the plan to admit him to the hospital for further evaluation and management of his lower GI bleed I did discuss the abdominal aneurysm seen on CT with the patient. He had never been told of aneurysms previously. Should be noted that the patient is not anticoagulated 1715: I spoken with Dr. Hyde the vascular surgeon on-call at [facility]. I briefly discussed this case. I queried with him whether the thrombus formation within the abdominal aneurysm would require anticoagulation in the long-term. He reported to me that This type of thrombus formation within abdominal aneurysms is quite common and does not require long-term anticoagulation. He would recommend an aspirin as well as a statin when stable for discharge as well as referral to vascular following up. I discussed these recommendations with our hospitalist Dr. Walker. Admission orders are pending. Further care to be dictated by the hospitalist and surgical team Departure - Departure Disposition: 66 [facility] DC/Xfer Clinical Impression: Diverticular hemorrhage, Lactic acidosis, Abdominal aneurysm, Iliac artery aneurysm, left
[2022-08-25 12:21] LABS: BASOPHILS # (AUTO) 0.1 10^3/uL (0.0-0.1); BASOPHILS % (AUTO) 0.6 %; EOSINOPHILS # (AUTO) 0.1 10^3/uL (0.0-0.7); HCT - HEMATOCRIT 34.8 % (42.0-52.0); HGB - HEMOGLOBIN 10.7 g/dL (14.0-18.0); LYMPHOCYTES # (AUTO) 1.1 10^3/uL (1.5-3.5); LYMPHOCYTES % (AUTO) 11.2 %; MEAN CORPUSCULAR HEMOGLOBIN 27.2 pg (27.0-31.0); MEAN CORPUSCULAR HGB CONC 30.7 g/dL (32.0-36.0); MEAN CORPUSCULAR VOLUME 88.5 fL (80.0-94.0); MEAN PLATELET VOLUME 9.8 fL (7.4-11.4); MONOCYTES # (AUTO) 0.7 10^3/uL (0.0-1.0); MONOCYTES % (AUTO) 7.1 %; NEUTROPHILS # (AUTO) 8.1 10^3/uL (1.5-6.6); NEUTROPHILS % (AUTO) 79.7 %; PLT - PLATELET COUNT 214 10^3/uL (130-450); RED BLOOD COUNT 3.93 10^6/uL (4.70-6.10); RED CELL DISTRIBUTION WIDTH 18.1 % (12.0-15.0); WHITE BLOOD COUNT 10.2 x10^3/uL (4.8-10.8)
[2022-08-25 12:27] LABS: PT - PROTHROMBIN TIME 10.8 secs (9.9-12.6)
[2022-08-25 12:34] LABS: ALBUMIN 3.8 g/dL (3.2-5.5); ALBUMIN/GLOBULIN RATIO 1.3 (1.0-2.2); BILIRUBIN,TOTAL 0.7 mg/dL (0.2-1.0); CALCIUM 9.4 mg/dL (8.5-10.3); CREATININE 1.9 mg/dL (0.6-1.2); POTASSIUM 4.4 mmol/L (3.5-5.0); TOTAL PROTEIN 6.7 g/dL (6.7-8.2)
[2022-08-25 13:10] LABS: THYROID STIMULATING HORMONE 2.96 uIU/mL (0.34-5.60)
--- NOTE | 2022-08-25 13:11 | XRAY Report ---
PROCEDURE: Chest 1 View X-Ray INDICATIONS: chest pain TECHNIQUE: One view of the chest was acquired. COMPARISON: 04/26/2022 FINDINGS: Surgical changes and devices: Median sternotomy and CABG changes. Lungs and pleura: No pleural effusions or pneumothorax. Lungs are clear. Mediastinum: Mediastinal contours appear normal. Heart size is normal. Aortic arch calcification. Bones and chest wall: No suspicious bony lesions. Overlying soft tissues appear unremarkable. IMPRESSION: No acute cardiopulmonary process demonstrated radiographically. Reviewed by: Julian Schaeffer MD on 08/25/2022 1:10 PM PST Approved by: Julian Schaeffer MD on 08/25/2022 1:10 PM PST Station ID: [id number]
[2022-08-25 13:12] LABS: FREE T4 (FREE THYROXINE) 0.7 ng/dL (0.58-1.64)
[2022-08-25] MEDS ORDERED: iohexoL-300 100 ML VIAL ONE (13:13)
[2022-08-25 13:50] LABS: CORONAVIRUS 229E-RESP PCR NOT DETECTED; CORONAVIRUS HKU1-RESP PCR NOT DETECTED; CORONAVIRUS NL63-RESP PCR NOT DETECTED; CORONAVIRUS OC43-RESP PCR NOT DETECTED; HUMAN METAPNEUMOVIRUS NOT DETECTED; INFLUENZA A- RESP PCR PANEL NOT DETECTED; INFLUENZA B - RESP PCR PANEL NOT DETECTED; PARAINFLUENZA VIRUS 1 NOT DETECTED; PARAINFLUENZA VIRUS 2 NOT DETECTED; PARAINFLUENZA VIRUS 3 NOT DETECTED; RHINOVIRUS/ENTEROVIRUS NOT DETECTED; SARS-CoV-2 -RESP PCR PANEL NOT DETECTED
[2022-08-25 13:51] LABS: B. PARAPERTUSSIS- RESP PCR PAN NOT DETECTED; B. PERTUSSIS- RESP PCR PANEL NOT DETECTED; C. PNEUMONIAE- RESP PCR PANEL NOT DETECTED; M. PNEUMONIAE- RESP PCR PANEL NOT DETECTED; PARAINFLUENZA VIRUS 4 NOT DETECTED; RSV- RESP PCR PANEL NOT DETECTED
[2022-08-25 14:03] LABS: HCT - HEMATOCRIT 28.6 % (42.0-52.0); HGB - HEMOGLOBIN 8.6 g/dL (14.0-18.0)
--- NOTE | 2022-08-25 14:15 | CT Report ---
PROCEDURE: ANGIO ABDOMEN/PELVIS W INDICATIONS: bright red rectal bleeding CONTRAST: 100ml omnipaque 300 TECHNIQUE: After the administration of intravenous contrast, 2.5 mm thick sections acquired from the diaphragm t o the symphysis. 10 mm maximum-intensity projection (MIP) reformats were then acquired. For radiati on dose reduction, the following was used: automated exposure control, adjustment of mA and/or kV ac cording to patient size. COMPARISON: CT abdomen and pelvis dated 10/21/17 FINDINGS: Image quality: Excellent. Aorta: Mild aneurysmal dilatation of the infrarenal abdominal aorta with moderate thrombus. The maxi mum diameter is 3.6 cm. There is also a aneurysmal left common iliac artery, measuring 2.9 cm in diam eter. Iliac arteries are tortuous. 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 Mesenteric arteries: Mild celiac origin stenosis. SMA patent. JAREK grossly patent. Right pelvic arteries: Tortuous, patent. Left pelvic arteries: Aneurysmal dilatation of the common iliac, measuring 2.8 cm. Tortuous vessels, which are patent. Extravascular soft tissues: Lung bases are clear. Heart size is normal. Liver and spleen are ruslan l in size and enhancement. Gallbladder is surgically absent. Biliary system is non dilated. Pancre as enhances normally. No adrenal nodules. The right kidney is diffusely atrophied. It contains a 7 m m middle pole stone. There is no right hydronephrosis. Left kidney is unremarkable. Non opacified bow el loops are normal in wall thickness and caliber. There is a probable diverticular bleed involving the proximal sigmoid colon. There is high density material present within the diverticulum and subjac ent lumen, which most likely represents acute extravasation. No free fluid or air. No retroperitonea l or mesenteric adenopathy. No ventral hernias. No suspicious bony lesions. No vertebral body comp ression fractures. Prostate implant seeds. Unremarkable bladder. IMPRESSION: 1. Findings are very suspicious for an acute proximal sigmoid colon diverticular bleed. There is high density material within a diverticulum and subjacent lumen. 2. Mild aneurysmal dilatation of the infrarenal abdominal aorta, measuring 3.6 cm, with moderate thro mbus. 3. Aneurysmal dilatation of the left common iliac artery. 4. 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 5. Prostate implant seeds. 6. No evidence of metastatic disease. Reviewed by: Vincenzo Mark MD on 08/25/2022 2:14 PM PST Approved by: Vincenzo Mark MD on 08/25/2022 2:14 PM PST Station ID: [id number]
[2022-08-25] MEDS ORDERED: polyethylene glycoL 3350 17 GM PACKET PO ONE (14:28)
[2022-08-25] MEDS ORDERED: iohexoL-300 100 ML VIAL IVP ONE (14:45)
[2022-08-25] MEDS ORDERED: SODIUM CHLORIDE 0.9% 1,000 ML IV ONE (17:15)
--- NOTE | 2022-08-25 17:25 | SURGERY HX AND PHYSICAL(T) ---
Surgical History & Physical - Chief Complaint/HPI Chief Complaint: lightheaded History of Present Illness: This is a very pleasant 86 y/o M with a two day history of BRBPR. He denies any associated pain, nausea, vomiting, or change in appetite. He denies chest pain or shortness of breath. He endorses feeling tired and dizzy. He became dizzy while out to the bank today, which prompted him to seek transportation to the ED. He has had some blood in his stool previously, but never as much as he's noted in the last couple of days. He has had colonoscopies in the past. He denies taking any blood thinners. He has a history of prostate cancer and radiation. He also has a history of CAD. - PMH/PSH/Social Hx Eyes, Ears, Nose, Throat: Glaucoma Cardiovascular: Hypertension, High cholesterol, Coronary artery disease Respiratory: None Skin: Rosacea Endocrine/Autoimmune: HyPOthyroidism Gastrointestinal: Hemorrhoids Urinary: Benign prostate hypertrophy, Renal insuffiency, Kidney stones Musculoskeletal: Gout General: Cholecystectomy, Colonoscopy Urologic: Kidney stents, Ureterolithotomy (stones), Prostatic surgery Cardiothoracic: CABG, Coronary stent Eyes Ears Nose Throat (EENT): Cataracts - Family Hx Family Hx: Other (non contributory) - Home Meds and Allergies Home Medications: Atenolol 50 mg PO DAILY 05/25/13 Levothyroxine [Synthroid] 125 mcg PO QDAC 05/25/13 Pravastatin Sodium 60 mg PO DAILY 05/25/13 allopurinoL [Zyloprim] 100 mg PO DAILY 05/25/13 Allergies/Adverse Reactions: Allergies Allergy/AdvReac Type Severity Reaction Status Date / Time simvastatin AdvReac Intermediate see below Verified 08/25/22 12:08 amlodipine AdvReac Mild fatigue Verified 08/25/22 12:08 - Review of Systems Constitutional: Other (A complete 10 point review of symptoms is otherwise negative except for that noted in HPI and PMH.) - Vital Signs Heart Rate: 74 Blood Pressure: 98/62 Temperature: 36.5 C Respiratory Rate: 23 O2 Saturation: 100 Weight (kg): 87.815 kg Height: 1.73 m - Physical Exam Comments/Other: GEN: No acute distress, appears stated age, alert and oriented HEENT: NCAT, MMM, EOMI NEURO: CN II-XII grossly intact, no obvious focal deficits CV: RRR, no murmer appreciated PULM: CTAB, no wheezes appreciated ABD: soft, obese, non tender, no rebound or guarding CIRCULATORY: no clubbing, cyanosis, or edema SKIN: no lesions appreciated, somewhat pale in appearance LYMPH: no obvious lymphadenopathy MSK: 4/4 strength in all extremities PSYCH: Affect is appropriate - Patient Review Patient Review: Problems were reviewed with the patient during this visit. Medications were reviewed with the patient during this visit. Allergies were reviewed this patient during this visit. Pertinent Tests Reviewed: All pertitent test for this patient were reviewed. - Assessment & Plan Assessment and Plan: This is an 86-year-old gentleman with: 1. Acute lower GI bleed -I personally reviewed the images and report from patient's CT scan today. His bleeding appears to be coming from a diverticulum in the proximal sigmoid colon. Generally, bleeding of this nature, resolved spontaneously. Ideally, patient would be bowel prep before colonoscopy to allow us to visualize his entire colon. However, if he is unable to tolerate the bowel prep, we can proceed with emergent colonoscopy tonight. -I discussed this plan of care with the patient. He voiced understanding, his questions were answered, and he wished to proceed with colonoscopy. I did specifically discussed the risks and benefits and alternatives of colonoscopy including bleeding and perforation. A consent was signed by the patient in the emergency department. Patient is on a clear liquid diet and bowel prep has been ordered. Plan for colonoscopy tomorrow morning The patient has been typed and screened, given his initial drop in hemoglobin, it is likely he will require a blood transfusion to keep his hemoglobin above 7. 2. Hypertension, coronary artery disease, high cholesterol, hypothyroidism, prostate cancer, glaucoma -As per primary team I discussed the plan of care with the patient in the emergency department as well as with the emergency department team and the primary medicine team. Thank you for consulting me in the care of this patient. I will continue to follow closely.
[2022-08-25] MEDS ORDERED: ONDANSETRON 4 MG/2 ML VIAL IVP PRN (17:53)
[2022-08-25] MEDS ORDERED: ACETAMINOPHEN 325 MG TABLET PO PRN (17:53)
[2022-08-25] MEDS ORDERED: polyethylene glycoL 3350 238 GM BOTTLE PO ONE (18:00)
[2022-08-25] MEDS ORDERED: DEXTROSE 5%-0.9% NACL 1,000 ML IV SCH (18:00)
--- NOTE | 2022-08-25 18:06 | HISTORY & PHYSICAL EXAMINATION ---
Chief Complaint - Chief Complaint Chief Complaint: Lightheaededness, BRBPR for 2 days History of Present Illness - Admitted From Admitted From:: ED - History Obtained From History obtained from: ED provider and the patient - History of Present Illness HPI Comment/Other: This is an 86 y/o male with a Hx of CAD and prostate CA with seed implants. He was at the bank today, felt lightheaded, used their bathroom where he had a red bowel movement. He then got someone there to bring him to the ER. He did describe 2 days of red BMs and red seen in his underwear. He denies any associated abdominal pain or cramps, no nausea, vomiting, or change in appetite. He denies chest pain or shortness of breath. His first BP was 80/40. When laid supine his blood pressure improved to 130/60. He was not tachycardic. Labs came back showing hemoglobin of 8.7, lactic acid of 3 and mildly elevated creatinine which is at his baseline. He got 2 L of fluid bolus ordered and he underwent a CTA of the abdomen/pelvis. This showed bleeding from a sigmoid colon diverticulum. Also seen was a AAA with mural thrombus. There was also occlusion of the right renal artery and atrophy of the right kidney. The ED provider asked for consultation from general surgery. The ED provider then reached me on the Hospitalist team and we discussed admission. I advised that the ED provider speak to vascular surgery to discuss management of a clot in the aorta at a time when the patient has active bleeding. The vascular specialist that called back and spoke to our ED provider said that mural clots are very common in AAA and that when stable the patient should be on statin plus aspirin and be seen by vascular surgery. This was discussed by ED provider with the patient, who told the ED provider that he has never been told of having AAA or other vascukar disease. The next hemoglobin was then performed in the ED and has come down to 8.7. Also repeat blood pressures are now in the 90/60 range. I discussed this patient's management next with the general territory sales consultant Dr. Hui. The patient is being admitted to the ICU in critical condition. History - Past Medical History Cardiovascular: reports: Hypertension, High cholesterol, Coronary artery disease Respiratory: reports: None Neuro: reports: None Endocrine/Autoimmune: reports: HyPOthyroidism GI: reports: Hemorrhoids : reports: Benign prostate hypertrophy, Renal insuffiency, Kidney stones HEENT: reports: Glaucoma Musculoskeletal: reports: Gout Derm: reports: Rosacea - Past Surgical History General: reports: Cholecystectomy, Colonoscopy /[employer]PER[employer]OR: reports: Other (Prostate seeds and radiation) Cardiovascular: reports: CABG, Coronary stent HEENT: reports: Cataracts - Family & Social History Family History: Mother: , Father: , Sister: Alive and Well Family History Comment/Other: No disease ran in the family Living arrangement: At home Living Situation: With friend(s) Social History Notes: He drives, and does alot of volunteer work at [employer] and [employer], 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 He never smoked. He drinks 1 alcoholic beverage 5 days out of the week. - Substance History Use: Uses substance without health or social issues: Alcohol Meds/Allgy - Home Medications Home Medications: Ambulatory Orders Medication Instructions Recorded Confirmed Pravastatin Sodium 60 mg PO DAILY 05/25/13 08/26/22 Isosorbide Mononitrate [Isosorbide 60 mg PO DAILY 08/26/22 08/26/22 Mononitrate ER] Latanoprost/Pf [Latanoprost 0.005% 1 drops EACHEYE QPM 08/26/22 08/26/22 Eye Drop] Levothyroxine [Synthroid] 100 mcg PO QDAC 08/26/22 08/26/22 Metoprolol Tartrate [Lopressor] 25 mg PO TID 08/26/22 08/26/22 Timolol 0.5% Ophth Drops [Timoptic 1 drops EACHEYE BID 08/26/22 08/26/22 0.5% Ophth Drops] lisinopriL [Lisinopril] 10 mg PO BID 08/26/22 08/26/22 - Allergies Allergies/Adverse Reactions: Allergies Allergy/AdvReac Type Severity Reaction Status Date / Time simvastatin AdvReac Intermediate see below Verified 08/25/22 12:08 amlodipine AdvReac Mild fatigue Verified 08/25/22 12:08 Review of Systems - Constitutional Constitutional: reports: Weakness - Cardiovascular Cariovascular: reports: Lightheadedness - Gastrointestinal Gastrointestinal: reports: Bloody stools (He gets several days of BRBPR every F eb, ever since his prostate radiation. This is his worst and longest ever.), Other (He had black BMs after using alot oif Motrin in 2021, never had a scope but thinks he had a bleeding ulcer, needed 2U of blood transfused then.) - All Other Systems All Other Systems: reports: Reviewed and negative Exam - Vital Signs Reviewed Vital Signs: Yes Vital Signs: Vital Signs x48h Temp Pulse Pulse Pulse Pulse Resp BP 08/25/22 17:53 36.5 C 74 23 98/62 08/25/22 17:00 74 23 98/62 08/25/22 16:30 85 22 98/67 08/25/22 16:00 82 16 110/60 08/25/22 15:30 80 16 130/60 08/25/22 15:00 64 16 120/60 08/25/22 14:30 36.5 C 66 18 128/54 L 08/25/22 14:23 75 79 66 08/25/22 14:02 66 18 122/68 08/25/22 13:32 66 16 140/80 H 08/25/22 13:02 60 12 110/65 08/25/22 12:32 68 17 128/54 L 08/25/22 12:17 36.5 C 68 18 134/66 H 08/25/22 12:08 36.5 C 76 12 80/40 L BP BP BP Pulse Ox 08/25/22 17:53 100 08/25/22 17:00 100 08/25/22 16:30 100 08/25/22 16:00 100 08/25/22 15:30 100 08/25/22 15:00 98 08/25/22 14:30 100 08/25/22 14:23 138/72 H 122/68 128/54 L 08/25/22 14:02 100 08/25/22 13:32 98 08/25/22 13:02 100 08/25/22 12:32 98 08/25/22 12:17 100 08/25/22 12:08 100 - Physical Exam General Appearance: positive: Alert, Mild distress (He was just lightheaded and got nauseated after sitting upright on a bedside commode, is receiving Zofran.), Other (Pale. Flat affect.) Eyes Bilateral: positive: Normal inspection, No lid inflammation ENT: positive: ENT inspection nml, No signs of dehydration Neck: positive: Nml inspection, No JVD Respiratory: positive: No respiratory distress, Breath sounds nml Cardiovascular: positive: Regular rate & rhythm, No murmur Abdomen: positive: Non-tender, No organomegaly, Nml bowel sounds, No distention Skin: positive: Warm, Dry, Pallor Extremities: positive: Non-tender, No pedal edema Neurologic/Psychiatric: positive: Oriented x3, Motor nml Conclusion/Plan - Problem List (1) Diverticular hemorrhage Conclusion/Plan: As per CTA results Plan: Liquid diet then start a bowel prep. N.p.o. after midnight for colonoscopy tomorrow morning No antibiotics were advised by the general surgeon Follow the CBC for transfusions as below (2) Hypotension due to blood loss Conclusion/Plan: Plan: Admit to ICU Vital signs every hour Follow hemoglobin q6h, plan for blood transfusions (3) Lactic acidosis Conclusion/Plan: Likely relate to tissue hypoperfusion from his hypotension Plan: As in #2 (4) AAA (abdominal aortic aneurysm) Conclusion/Plan: As per CTA result. He said he has never been told he has this Plan: Per vascular surgery, no special management was advised for the mural thrombus seen on CTA, daily aspirin when the patient is safe to be started on aspirin, and statin medication for overall PVD treatment. 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 Creatinine is stable compared to his prior blood levels Plan: Avoid nephrotoxins Follow BMP daily - Lab Results Fish Bones: 08/26/22 12:47 08/26/22 05:37 - Diagnostic Imaging Results Diagnostic Imaging Results: positive: Final report reviewed - Other Other Results/Comments: Attestation: The patient is expected to be discharged or transferred to another facility within 96 hours: Yes.
[2022-08-25] MEDS: SODIUM CHLORIDE 0.9% 1,000 ML IV SCH (19:11)
[2022-08-25] MEDS: SODIUM CHLORIDE FLUSH 0.9% 10 ML SYRINGE IVP PRN (19:14)
[2022-08-25] MEDS ORDERED: FAMOTIDINE 20 MG/2 ML VIAL IVP SCH (21:00)
[2022-08-25] MEDS: SODIUM CHLORIDE FLUSH 0.9% 10 ML SYRINGE IVP SCH (21:06)
[2022-08-26] MEDS: SODIUM CHLORIDE 0.9% 1,000 ML IV SCH ×4 (03:34→18:39)
[2022-08-26 06:19] LABS: BASOPHILS % (AUTO) 0.5 %; EOSINOPHILS # (AUTO) 0.1 10^3/uL (0.0-0.7); EOSINOPHILS % (AUTO) 1.9 %; HCT - HEMATOCRIT 21.2 % (42.0-52.0); LYMPHOCYTES # (AUTO) 1.1 10^3/uL (1.5-3.5); LYMPHOCYTES % (AUTO) 17.1 %; MEAN CORPUSCULAR HEMOGLOBIN 28.2 pg (27.0-31.0); MEAN CORPUSCULAR HGB CONC 31.6 g/dL (32.0-36.0); MEAN CORPUSCULAR VOLUME 89.1 fL (80.0-94.0); MEAN PLATELET VOLUME 9.9 fL (7.4-11.4); MONOCYTES # (AUTO) 0.5 10^3/uL (0.0-1.0); MONOCYTES % (AUTO) 8.4 %; NEUTROPHILS # (AUTO) 4.6 10^3/uL (1.5-6.6); NEUTROPHILS % (AUTO) 71.8 %; PLT - PLATELET COUNT 109 10^3/uL (130-450); RED BLOOD COUNT 2.38 10^6/uL (4.70-6.10); WHITE BLOOD COUNT 6.4 x10^3/uL (4.8-10.8)
[2022-08-26 06:20] LABS: CALCIUM, IONIZED 1.04 mmol/L (1.15-1.33); VBG PH 7.328 (7.31-7.41)
[2022-08-26] MEDS ORDERED: CALCIUM GLUC 1,000MG/50ML-NACL 1,000 MG/50 ML BAG IV ONE ×2 (06:22→22:52)
[2022-08-26 06:25] LABS: HGB - HEMOGLOBIN 6.7 g/dL (14.0-18.0)
[2022-08-26 06:31] LABS: CALCIUM 7.6 mg/dL (8.5-10.3); CREATININE 1.4 mg/dL (0.6-1.2); MAGNESIUM 1.8 mg/dL (1.7-2.8); PHOSPHORUS 3.4 mg/dL (2.5-4.6); POTASSIUM 4.2 mmol/L (3.5-5.0)
--- NOTE | 2022-08-26 07:16 | PROVIDER PROGRESS NOTE ---
Subjective - General Admit Date: 08/25/22 - Review of Systems All Other Systems: positive: Reviewed and negative - Other Other Information/Narrative: Patient denies pain this AM. Still having a lot of blood in BM's. Colon prep complete. No n/v. Lightheaded when out of bed. Objective - Patient Data Reviewed Vital Signs: Yes Vital Signs: Vital Signs x48h Temp Pulse Resp BP Pulse Ox 08/26/22 07:02 89 21 121/68 98 08/26/22 06:53 90 24 131/72 H 97 08/26/22 06:00 81 19 105/70 97 08/26/22 05:00 83 18 109/64 97 08/26/22 04:00 80 17 154/51 H 94 08/26/22 03:00 36.7 C 20 141/84 H 96 08/26/22 02:00 90 19 154/71 H 98 08/26/22 01:00 89 22 112/54 L 99 08/26/22 00:33 36.8 C 96 26 H 122/77 98 08/26/22 00:29 36.8 C 96 26 H 99 08/26/22 00:00 95 21 92/55 L 99 08/25/22 23:48 93 21 91/60 97 Weight: Weight 08/24/22 08/25/22 08/26/22 23:59 23:59 23:59 Weight (kg) 87.5 kg 87 kg Intake & Output: Intake and Output Totals x24h 08/24/22 08/25/22 08/26/22 23:59 23:59 23:59 Intake Total 5369.166 1077.084 Output Total 500 1050 Balance 4869.166 27.084 - Lab Results Lab Results: 08/26/22 05:37 08/26/22 05:37 Other Lab Results: Lab Results x24hrs 08/26/22 08/26/22 08/26/22 Range/Units 05:37 05:37 05:37 WBC 6.4 (4.8-10.8) x10^3/uL RBC 2.38 L (4.70-6.10) 10^6/uL Hgb 6.7 L* (14.0-18.0) g/dL Hct 21.2 L (42.0-52.0) % MCV 89.1 (80.0-94.0) fL MCH 28.2 (27.0-31.0) pg MCHC 31.6 L (32.0-36.0) g/dL RDW 18.0 H (12.0-15.0) % Plt Count 109 L (130-450) 10^3/uL MPV 9.9 (7.4-11.4) fL Neut # (Auto) 4.6 (1.5-6.6) 10^3/uL Lymph # (Auto) 1.1 L (1.5-3.5) 10^3/uL [place] # (Auto) 0.5 (0.0-1.0) 10^3/uL Eos # (Auto) 0.1 (0.0-0.7) 10^3/uL Baso # (Auto) 0.0 (0.0-0.1) 10^3/uL Absolute Nucleated RBC 0.00 x10^3/uL Nucleated RBC % 0.0 /100WBC PT (9.9-12.6) secs INR (0.8-1.2) VBG pH 7.328 (7.31-7.41) Ionized Calcium 1.04 L (1.15-1.33) mmol/L Sodium 138 (135-145) mmol/L Potassium 4.2 (3.5-5.0) mmol/L Chloride 111 (101-111) mmol/L Carbon Dioxide 21 (21-32) mmol/L Anion Gap 6.0 (6-13) BUN 30 H (6-20) mg/dL Creatinine 1.4 H (0.6-1.2) mg/dL Estimated GFR (MDRD) 48 L (>89) Glucose 98 (70-100) mg/dL Lactic Acid (0.5-2.2) mmol/L Calcium 7.6 L (8.5-10.3) mg/dL Phosphorus 3.4 (2.5-4.6) mg/dL Magnesium 1.8 (1.7-2.8) mg/dL Total Bilirubin (0.2-1.0) mg/dL AST (10-42) IU/L ALT (10-60) IU/L Alkaline Phosphatase (42-121) IU/L Troponin I High Sens (2.3-19.7) ng/L Total Protein (6.7-8.2) g/dL Albumin (3.2-5.5) g/dL Globulin (2.1-4.2) g/dL Albumin/Globulin Ratio (1.0-2.2) Lipase (22-51) U/L TSH (0.34-5.60) uIU/mL Free T4 (0.58-1.64) ng/dL Nasal Adenovirus (PCR) Nasal B. parapertussis DNA (PCR) Nasal Coronavir 229E PCR Nasal Coronavir HKU1 PCR Nasal Coronavir NL63 PCR Nasal Coronavir OC43 PCR Nasal Enterovir/Rhinovir PCR Nasal Influenza B PCR Nasal Influenza A PCR Nasal Parainfluen 1 PCR Nasal Parainfluen 2 PCR Nasal Parainfluen 3 PCR Nasal Parainfluen 4 PCR Nasal RSV (PCR) Nasal Screen MRSA (PCR) (NEGATIVE) Nasal B.pertussis DNA PCR Nasal C.pneumoniae (PCR) Geo Human Metapneumo PCR Nasal M.pneumoniae (PCR) Nasal SARS-CoV-2 (PCR) Blood Type Antibody Screen Crossmatch IS Only 08/26/22 08/25/22 08/25/22 Range/Units 01:19 19:54 19:54 WBC (4.8-10.8) x10^3/uL RBC (4.70-6.10) 10^6/uL Hgb 7.3 L 7.4 L (14.0-18.0) g/dL Hct (42.0-52.0) % MCV (80.0-94.0) fL MCH (27.0-31.0) pg MCHC (32.0-36.0) g/dL RDW (12.0-15.0) % Plt Count (130-450) 10^3/uL MPV (7.4-11.4) fL Neut # (Auto) (1.5-6.6) 10^3/uL Lymph # (Auto) (1.5-3.5) 10^3/uL [place] # (Auto) (0.0-1.0) 10^3/uL Eos # (Auto) (0.0-0.7) 10^3/uL Baso # (Auto) (0.0-0.1) 10^3/uL Absolute Nucleated RBC x10^3/uL Nucleated RBC % /100WBC PT (9.9-12.6) secs INR (0.8-1.2) VBG pH (7.31-7.41) Ionized Calcium (1.15-1.33) mmol/L Sodium (135-145) mmol/L Potassium (3.5-5.0) mmol/L Chloride (101-111) mmol/L Carbon Dioxide (21-32) mmol/L Anion Gap (6-13) BUN (6-20) mg/dL Creatinine (0.6-1.2) mg/dL Estimated GFR (MDRD) (>89) Glucose (70-100) mg/dL Lactic Acid 2.2 (0.5-2.2) mmol/L Calcium (8.5-10.3) mg/dL Phosphorus (2.5-4.6) mg/dL Magnesium (1.7-2.8) mg/dL Total Bilirubin (0.2-1.0) mg/dL AST (10-42) IU/L ALT (10-60) IU/L Alkaline Phosphatase (42-121) IU/L Troponin I High Sens (2.3-19.7) ng/L Total Protein (6.7-8.2) g/dL Albumin (3.2-5.5) g/dL Globulin (2.1-4.2) g/dL Albumin/Globulin Ratio (1.0-2.2) Lipase (22-51) U/L TSH (0.34-5.60) uIU/mL Free T4 (0.58-1.64) ng/dL Nasal Adenovirus (PCR) Nasal B. parapertussis DNA (PCR) Nasal Coronavir 229E PCR Nasal Coronavir HKU1 PCR Nasal Coronavir NL63 PCR Nasal Coronavir OC43 PCR Nasal Enterovir/Rhinovir PCR Nasal Influenza B PCR Nasal Influenza A PCR Nasal Parainfluen 1 PCR Nasal Parainfluen 2 PCR Nasal Parainfluen 3 PCR Nasal Parainfluen 4 PCR Nasal RSV (PCR) Nasal Screen MRSA (PCR) (NEGATIVE) Nasal B.pertussis DNA PCR Nasal C.pneumoniae (PCR) Geo Human Metapneumo PCR Nasal M.pneumoniae (PCR) Nasal SARS-CoV-2 (PCR) Blood Type Antibody Screen Crossmatch IS Only 08/25/22 08/25/22 08/25/22 Range/Units 18:40 13:53 12:50 WBC (4.8-10.8) x10^3/uL RBC (4.70-6.10) 10^6/uL Hgb 8.6 L (14.0-18.0) g/dL Hct 28.6 L (42.0-52.0) % MCV (80.0-94.0) fL MCH (27.0-31.0) pg MCHC (32.0-36.0) g/dL RDW (12.0-15.0) % Plt Count (130-450) 10^3/uL MPV (7.4-11.4) fL Neut # (Auto) (1.5-6.6) 10^3/uL Lymph # (Auto) (1.5-3.5) 10^3/uL [place] # (Auto) (0.0-1.0) 10^3/uL Eos # (Auto) (0.0-0.7) 10^3/uL Baso # (Auto) (0.0-0.1) 10^3/uL Absolute Nucleated RBC x10^3/uL Nucleated RBC % /100WBC PT (9.9-12.6) secs INR (0.8-1.2) VBG pH (7.31-7.41) Ionized Calcium (1.15-1.33) mmol/L Sodium (135-145) mmol/L Potassium (3.5-5.0) mmol/L Chloride (101-111) mmol/L Carbon Dioxide (21-32) mmol/L Anion Gap (6-13) BUN (6-20) mg/dL Creatinine (0.6-1.2) mg/dL Estimated GFR (MDRD) (>89) Glucose (70-100) mg/dL Lactic Acid (0.5-2.2) mmol/L Calcium (8.5-10.3) mg/dL Phosphorus (2.5-4.6) mg/dL Magnesium (1.7-2.8) mg/dL Total Bilirubin (0.2-1.0) mg/dL AST (10-42) IU/L ALT (10-60) IU/L Alkaline Phosphatase (42-121) IU/L Troponin I High Sens (2.3-19.7) ng/L Total Protein (6.7-8.2) g/dL Albumin (3.2-5.5) g/dL Globulin (2.1-4.2) g/dL Albumin/Globulin Ratio (1.0-2.2) Lipase (22-51) U/L TSH (0.34-5.60) uIU/mL Free T4 (0.58-1.64) ng/dL Nasal Adenovirus (PCR) NOT DETECTED Nasal B. parapertussis DNA (PCR) NOT DETECTED Nasal Coronavir 229E PCR NOT DETECTED Nasal Coronavir HKU1 PCR NOT DETECTED Nasal Coronavir NL63 PCR NOT DETECTED Nasal Coronavir OC43 PCR NOT DETECTED Nasal Enterovir/Rhinovir PCR NOT DETECTED Nasal Influenza B PCR NOT DETECTED Nasal Influenza A PCR NOT DETECTED Nasal Parainfluen 1 PCR NOT DETECTED Nasal Parainfluen 2 PCR NOT DETECTED Nasal Parainfluen 3 PCR NOT DETECTED Nasal Parainfluen 4 PCR NOT DETECTED Nasal RSV (PCR) NOT DETECTED Nasal Screen MRSA (PCR) NEGATIVE (NEGATIVE) Nasal B.pertussis DNA PCR NOT DETECTED Nasal C.pneumoniae (PCR) NOT DETECTED Geo Human Metapneumo PCR NOT DETECTED Nasal M.pneumoniae (PCR) NOT DETECTED Nasal SARS-CoV-2 (PCR) NOT DETECTED Blood Type Antibody Screen Crossmatch IS Only 08/25/22 08/25/22 08/25/22 Range/Units 12:14 12:11 12:11 WBC (4.8-10.8) x10^3/uL RBC (4.70-6.10) 10^6/uL Hgb (14.0-18.0) g/dL Hct (42.0-52.0) % MCV (80.0-94.0) fL MCH (27.0-31.0) pg MCHC (32.0-36.0) g/dL RDW (12.0-15.0) % Plt Count (130-450) 10^3/uL MPV (7.4-11.4) fL Neut # (Auto) (1.5-6.6) 10^3/uL Lymph # (Auto) (1.5-3.5) 10^3/uL [place] # (Auto) (0.0-1.0) 10^3/uL Eos # (Auto) (0.0-0.7) 10^3/uL Baso # (Auto) (0.0-0.1) 10^3/uL Absolute Nucleated RBC x10^3/uL Nucleated RBC % /100WBC PT (9.9-12.6) secs INR (0.8-1.2) VBG pH (7.31-7.41) Ionized Calcium (1.15-1.33) mmol/L Sodium (135-145) mmol/L Potassium (3.5-5.0) mmol/L Chloride (101-111) mmol/L Carbon Dioxide (21-32) mmol/L Anion Gap (6-13) BUN (6-20) mg/dL Creatinine (0.6-1.2) mg/dL Estimated GFR (MDRD) (>89) Glucose (70-100) mg/dL Lactic Acid 3.1 H* (0.5-2.2) mmol/L Calcium (8.5-10.3) mg/dL Phosphorus (2.5-4.6) mg/dL Magnesium (1.7-2.8) mg/dL Total Bilirubin (0.2-1.0) mg/dL AST (10-42) IU/L ALT (10-60) IU/L Alkaline Phosphatase (42-121) IU/L Troponin I High Sens 5.7 (2.3-19.7) ng/L Total Protein (6.7-8.2) g/dL Albumin (3.2-5.5) g/dL Globulin (2.1-4.2) g/dL Albumin/Globulin Ratio (1.0-2.2) Lipase (22-51) U/L TSH 2.96 (0.34-5.60) uIU/mL Free T4 0.70 (0.58-1.64) ng/dL Nasal Adenovirus (PCR) Nasal B. parapertussis DNA (PCR) Nasal Coronavir 229E PCR Nasal Coronavir HKU1 PCR Nasal Coronavir NL63 PCR Nasal Coronavir OC43 PCR Nasal Enterovir/Rhinovir PCR Nasal Influenza B PCR Nasal Influenza A PCR Nasal Parainfluen 1 PCR Nasal Parainfluen 2 PCR Nasal Parainfluen 3 PCR Nasal Parainfluen 4 PCR Nasal RSV (PCR) Nasal Screen MRSA (PCR) (NEGATIVE) Nasal B.pertussis DNA PCR Nasal C.pneumoniae (PCR) Geo Human Metapneumo PCR Nasal M.pneumoniae (PCR) Nasal SARS-CoV-2 (PCR) Blood Type Antibody Screen Crossmatch IS Only 08/25/22 08/25/22 08/25/22 Range/Units 12:11 12:11 12:11 WBC 10.2 (4.8-10.8) x10^3/uL RBC 3.93 L (4.70-6.10) 10^6/uL Hgb 10.7 L (14.0-18.0) g/dL Hct 34.8 L (42.0-52.0) % MCV 88.5 (80.0-94.0) fL MCH 27.2 (27.0-31.0) pg MCHC 30.7 L (32.0-36.0) g/dL RDW 18.1 H (12.0-15.0) % Plt Count 214 (130-450) 10^3/uL MPV 9.8 (7.4-11.4) fL Neut # (Auto) 8.1 H (1.5-6.6) 10^3/uL Lymph # (Auto) 1.1 L (1.5-3.5) 10^3/uL [place] # (Auto) 0.7 (0.0-1.0) 10^3/uL Eos # (Auto) 0.1 (0.0-0.7) 10^3/uL Baso # (Auto) 0.1 (0.0-0.1) 10^3/uL Absolute Nucleated RBC 0.00 x10^3/uL Nucleated RBC % 0.0 /100WBC PT 10.8 (9.9-12.6) secs INR 1.0 (0.8-1.2) VBG pH (7.31-7.41) Ionized Calcium (1.15-1.33) mmol/L Sodium 135 (135-145) mmol/L Potassium 4.4 (3.5-5.0) mmol/L Chloride 101 (101-111) mmol/L Carbon Dioxide 21 (21-32) mmol/L Anion Gap 13.0 (6-13) BUN 31 H (6-20) mg/dL Creatinine 1.9 H (0.6-1.2) mg/dL Estimated GFR (MDRD) 34 L (>89) Glucose 153 H (70-100) mg/dL Lactic Acid (0.5-2.2) mmol/L Calcium 9.4 (8.5-10.3) mg/dL Phosphorus (2.5-4.6) mg/dL Magnesium (1.7-2.8) mg/dL Total Bilirubin 0.7 (0.2-1.0) mg/dL AST 25 (10-42) IU/L ALT 18 (10-60) IU/L Alkaline Phosphatase 55 (42-121) IU/L Troponin I High Sens (2.3-19.7) ng/L Total Protein 6.7 (6.7-8.2) g/dL Albumin 3.8 (3.2-5.5) g/dL Globulin 2.9 (2.1-4.2) g/dL Albumin/Globulin Ratio 1.3 (1.0-2.2) Lipase 60 H (22-51) U/L TSH (0.34-5.60) uIU/mL Free T4 (0.58-1.64) ng/dL Nasal Adenovirus (PCR) Nasal B. parapertussis DNA (PCR) Nasal Coronavir 229E PCR Nasal Coronavir HKU1 PCR Nasal Coronavir NL63 PCR Nasal Coronavir OC43 PCR Nasal Enterovir/Rhinovir PCR Nasal Influenza B PCR Nasal Influenza A PCR Nasal Parainfluen 1 PCR Nasal Parainfluen 2 PCR Nasal Parainfluen 3 PCR Nasal Parainfluen 4 PCR Nasal RSV (PCR) Nasal Screen MRSA (PCR) (NEGATIVE) Nasal B.pertussis DNA PCR Nasal C.pneumoniae (PCR) Geo Human Metapneumo PCR Nasal M.pneumoniae (PCR) Nasal SARS-CoV-2 (PCR) Blood Type Antibody Screen Crossmatch IS Only 08/25/22 Range/Units 12:11 WBC (4.8-10.8) x10^3/uL RBC (4.70-6.10) 10^6/uL Hgb (14.0-18.0) g/dL Hct (42.0-52.0) % MCV (80.0-94.0) fL MCH (27.0-31.0) pg MCHC (32.0-36.0) g/dL RDW (12.0-15.0) % Plt Count (130-450) 10^3/uL MPV (7.4-11.4) fL Neut # (Auto) (1.5-6.6) 10^3/uL Lymph # (Auto) (1.5-3.5) 10^3/uL [place] # (Auto) (0.0-1.0) 10^3/uL Eos # (Auto) (0.0-0.7) 10^3/uL Baso # (Auto) (0.0-0.1) 10^3/uL Absolute Nucleated RBC x10^3/uL Nucleated RBC % /100WBC PT (9.9-12.6) secs INR (0.8-1.2) VBG pH (7.31-7.41) Ionized Calcium (1.15-1.33) mmol/L Sodium (135-145) mmol/L Potassium (3.5-5.0) mmol/L Chloride (101-111) mmol/L Carbon Dioxide (21-32) mmol/L Anion Gap (6-13) BUN (6-20) mg/dL Creatinine (0.6-1.2) mg/dL Estimated GFR (MDRD) (>89) Glucose (70-100) mg/dL Lactic Acid (0.5-2.2) mmol/L Calcium (8.5-10.3) mg/dL Phosphorus (2.5-4.6) mg/dL Magnesium (1.7-2.8) mg/dL Total Bilirubin (0.2-1.0) mg/dL AST (10-42) IU/L ALT (10-60) IU/L Alkaline Phosphatase (42-121) IU/L Troponin I High Sens (2.3-19.7) ng/L Total Protein (6.7-8.2) g/dL Albumin (3.2-5.5) g/dL Globulin (2.1-4.2) g/dL Albumin/Globulin Ratio (1.0-2.2) Lipase (22-51) U/L TSH (0.34-5.60) uIU/mL Free T4 (0.58-1.64) ng/dL Nasal Adenovirus (PCR) Nasal B. parapertussis DNA (PCR) Nasal Coronavir 229E PCR Nasal Coronavir HKU1 PCR Nasal Coronavir NL63 PCR Nasal Coronavir OC43 PCR Nasal Enterovir/Rhinovir PCR Nasal Influenza B PCR Nasal Influenza A PCR Nasal Parainfluen 1 PCR Nasal Parainfluen 2 PCR Nasal Parainfluen 3 PCR Nasal Parainfluen 4 PCR Nasal RSV (PCR) Nasal Screen MRSA (PCR) (NEGATIVE) Nasal B.pertussis DNA PCR Nasal C.pneumoniae (PCR) Geo Human Metapneumo PCR Nasal M.pneumoniae (PCR) Nasal SARS-CoV-2 (PCR) Blood Type A POSITIVE Antibody Screen NEGATIVE Crossmatch IS Only See Detail - Current Medications Current Medications: Current Medications Generic Name Dose Route Start Last Admin Trade Name Freq PRN Reason Stop Dose Admin Famotidine 10 mg 08/25/22 21:00 08/25/22 20:50 Famotidine 20 Mg/2 Ml Vial IVP 10 mg BID DINORAH Administration Sodium Chloride 1,000 mls @ 125 mls/hr 08/25/22 18:30 08/26/22 06:46 Normal Saline 0.9% IV 500 mls/hr .Q8H DINORAH Infusion CALCIUM GLUC 1,000MG/50ML-NACL 1,000 mg in 50 mls @ 50 mls/hr 08/26/22 06:22 08/26/22 06:41 Calcium Gluc 1,000mg/50ml-Nacl IV 08/26/22 07:21 50 mls/hr ONCE ONE Administration Protocol Ondansetron HCl 4 mg 08/25/22 17:53 08/25/22 19:11 Ondansetron 4 Mg/2 Ml Vial IVP 4 mg Q6HR PRN Administration Nausea / Vomiting Sodium Chloride 10 ml 08/26/22 01:00 08/25/22 21:06 Sodium Chloride Flush 0.9% 10 Ml Syringe IVP 10 ml 0100,0900,1700 DINORHA Administration Sodium Chloride 10 ml 08/25/22 17:53 08/25/22 19:14 Sodium Chloride Flush 0.9% 10 Ml Syringe IVP 10 ml PRN PRN Administration NEEDED PER PROVIDER ORDERS - Physical Exam General Appearance: positive: No acute distress, Alert Eyes Bilateral: positive: Normal inspection, PERRL, EOMI ENT: positive: No signs of dehydration Neck: positive: Trachea midline Respiratory: positive: Chest non-tender, No respiratory distress Cardiovascular: positive: Regular rate & rhythm Abdomen: positive: No distention. negative: Tenderness, Guarding, Rebound Skin: positive: Pallor Neurologic/Psychiatric: positive: Oriented x3 Impression/Plan - Problem List Problem List: This is an 86-year-old gentleman with: 1. Acute lower GI bleed -I personally reviewed the images and report from patient's CT scan today. His bleeding appears to be coming from a diverticulum in the proximal sigmoid colon. Generally, bleeding of this nature, resolves spontaneously. Bowel prep completed. Still having a lot of blood in stool. -I discussed this plan of care with the patient. He voiced understanding, his questions were answered, and he wished to proceed with colonoscopy. I did specifically discussed the risks and benefits and alternatives of colonoscopy including bleeding and perforation. A consent was signed by the patient in the emergency department. Patient is NPO for procedure. Plan for colonoscopy this AM. The patient has been typed and screened, transfused one unit last night. Plan to transfuse second unit after procedure this AM. 2. Hypertension, coronary artery disease, high cholesterol, hypothyroidism, prostate cancer, glaucoma -As per primary team I reviewed the plan of care with the patient this AM and he is willing to proceed. Thank you for consulting me in the care of this patient. I will continue to follow closely.
[2022-08-26] MEDS ORDERED: PROPOFOL 500 MG/50 ML 500 MG/50 ML VIAL ONE (07:18)
--- NOTE | 2022-08-26 07:23 | ANESTHESIA ---
Pre-Anesthesia VS, & Labs - Diagnosis GI Bleed - Procedure colonoscopy Vital Signs: Temp Pulse Resp BP Pulse Ox O2 Flow Rate 36.7 C 89 21 121/68 98 08/26/22 03:00 08/26/22 07:02 08/26/22 07:02 08/26/22 07:02 08/26/22 07:02 Height: 5 ft 8 in Weight (kg): 87 kg Body Mass Index: 29.1 BMI Classification: Overweight - NPO >8 hours - Lab Results Current Lab Results: Laboratory Tests 08/26/22 05:37: VBG pH 7.328, Ionized Calcium 1.04 L 08/26/22 05:37: Sodium 138, Potassium 4.2, Chloride 111, Carbon Dioxide 21, Anion Gap 6.0, BUN 30 H, Creatinine 1.4 H, Estimated GFR (MDRD) 48 L, Glucose 98, Calcium 7.6 L, Phosphorus 3.4, Magnesium 1.8 08/26/22 05:37: WBC 6.4, RBC 2.38 L, Hgb 6.7 L*, Hct 21.2 L, MCV 89.1, MCH 28.2, MCHC 31.6 L, RDW 18.0 H, Plt Count 109 L, MPV 9.9, Neut # (Auto) 4.6, Lymph # (Auto) 1.1 L, [place] # (Auto) 0.5, Eos # (Auto) 0.1, Baso # (Auto) 0.0, Absolute Nucleated RBC 0.00, Nucleated RBC % 0.0 08/26/22 01:19: Hgb 7.3 L 08/25/22 19:54: Lactic Acid 2.2 08/25/22 19:54: Hgb 7.4 L 08/25/22 13:53: Hgb 8.6 L, Hct 28.6 L 08/25/22 12:14: Lactic Acid 3.1 H* 08/25/22 12:11: Troponin I High Sens 5.7 08/25/22 12:11: TSH 2.96, Free T4 0.70 08/25/22 12:11: Sodium 135, Potassium 4.4, Chloride 101, Carbon Dioxide 21, Anion Gap 13.0, BUN 31 H, Creatinine 1.9 H, Estimated GFR (MDRD) 34 L, Glucose 153 H, Calcium 9.4, Total Bilirubin 0.7, AST 25, ALT 18, Alkaline Phosphatase 55, Total Protein 6.7, Albumin 3.8, Globulin 2.9, Albumin/Globulin Ratio 1.3, Li pase 60 H 08/25/22 12:11: PT 10.8, INR 1.0 08/25/22 12:11: WBC 10.2, RBC 3.93 L, Hgb 10.7 L, Hct 34.8 L, MCV 88.5, MCH 27.2, MCHC 30.7 L, RDW 18.1 H, Plt Count 214, MPV 9.8, Neut # (Auto) 8.1 H, Lymph # (Auto) 1.1 L, [place] # (Auto) 0.7, Eos # (Auto) 0.1, Baso # (Auto) 0.1, Absolute Nucleated RBC 0.00, Nucleated RBC % 0.0 08/25/22 12:11: Blood Type A POSITIVE, Antibody Screen NEGATIVE, Crossmatch IS Only See Detail Fish Bones: 08/26/22 05:37 08/26/22 05:37 Home Medications and Allergies Active Medications Acetaminophen (Acetaminophen 325 Mg Tablet) 650 mg PO Q4HR PRN PRN Reason: Pain 1 to 4, or Fever Famotidine (Famotidine 20 Mg/2 Ml Vial) 10 mg IVP BID [facility] Last Admin: 08/25/22 20:50 Dose: 10 mg Sodium Chloride (Normal Saline 0.9%) 1,000 mls @ 125 mls/hr IV .Q8H [facility] Last Infusion: 08/26/22 06:46 Dose: 500 mls/hr Ondansetron HCl (Ondansetron 4 Mg/2 Ml Vial) 4 mg IVP Q6HR PRN PRN Reason: Nausea / Vomiting Last Admin: 08/25/22 19:11 Dose: 4 mg Sodium Chloride (Sodium Chloride Flush 0.9% 10 Ml Syringe) 10 ml IVP 0100,0900,1700 [facility] Last Admin: 08/25/22 21:06 Dose: 10 ml Sodium Chloride (Sodium Chloride Flush 0.9% 10 Ml Syringe) 10 ml IVP PRN PRN PRN Reason: NEEDED PER PROVIDER ORDERS Last Admin: 08/25/22 19:14 Dose: 10 ml Atenolol 50 mg PO DAILY 05/25/13 Levothyroxine [Synthroid] 125 mcg PO QDAC 05/25/13 Pravastatin Sodium 60 mg PO DAILY 05/25/13 allopurinoL [Zyloprim] 100 mg PO DAILY 05/25/13 Allergies/Adverse Reactions: Allergies Allergy/AdvReac Type Severity Reaction Status Date / Time simvastatin AdvReac Intermediate see below Verified 08/25/22 12:08 amlodipine AdvReac Mild fatigue Verified 08/25/22 12:08 Anes History & Medical History - Anesthetic History Anesthesia Complications: reports: No previous complications - Medical History Cardiovascular: reports: Hypertension, High cholesterol, Coronary artery disease Pulmonary: reports: None Gastrointestinal: reports: Hemorrhoids Urinary: reports: Benign prostate hypertrophy, Renal insuffiency, Kidney stones Neuro: reports: None Musculoskeletal: reports: Gout Endocrine/Autoimmune: reports: HyPOthyroidism Blood Disorders: reports: None Skin: reports: Rosacea Smoking Status: Never smoker Psychosocial: reports: No issues indicated History of Cancer?: Yes (prostate) Other Past Medical History: cataract - Surgical History General: reports: Cholecystectomy, Colonoscopy Eyes Ears Nose Throat (EENT): reports: Cataracts Cardiothoracic: reports: CABG, Coronary stent Urologic: reports: Kidney stents, Ureterolithotomy (stones), Prostatic surgery Exam General: Alert, Oriented x3, Cooperative, No acute distress Dental: WNL Mouth Openin Fingerbreadth Neck Mobility: Normal Mallampati classification: III Thyromental Distance: 4-6 cm Mental/Cognitive Status: Alert/Oriented X3, Normal for patient Plan Anesthesia Type: General, Total IV Consent for Procedure(s) Verified and Reviewed: Yes Code Status: Attempt Resuscitation ASA classification: 3-Severe systemic disease Is this case an emergency?: Yes
[2022-08-26] MEDS ORDERED: FAMOTIDINE 20 MG/2 ML VIAL IVP SCH (09:00)
[2022-08-26] MEDS: SODIUM CHLORIDE FLUSH 0.9% 10 ML SYRINGE IVP SCH ×3 (09:26→20:53)
--- NOTE | 2022-08-26 09:44 | ANESTHESIA POST OP EVALUATION ---
Anesthesia Post Eval - Post Anesthesia Eval Vitals: Last Vital Signs Temp 36.5 C 08/26/22 09:07 Pulse 67 08/26/22 09:15 Resp 18 08/26/22 09:15 BP 122/78 08/26/22 09:15 Pulse Ox 95 08/26/22 09:15 O2 Flow Rate CV Function Including HR & BP: Stable Pain Control: Satisfactory Nausea & Vomiting: Negative Mental Status: Baseline Respiratory Status: Airway Patent Hydration Status: Satisfactory Anesthesia Complications: None
[2022-08-26 12:56] LABS: CALCIUM, IONIZED 0.99 mmol/L (1.15-1.33); VBG PH 7.285 (7.31-7.41)
[2022-08-26] MEDS ORDERED: CALCIUM GLUCONATE IN NS 0.9% 2,000 MG/100 ML BAG IV ONE (12:57)
--- NOTE | 2022-08-26 13:10 | PHARMACY PROGRESS NOTE ---
- Best Possible Medication History Admit Date and Time: 08/25/22 145 Processed by: Pharmacy Medication History completed: Yes Patient Interview: Pt unable to participate Secondary Source(s): Physician records, Pharmacy records, Insurance records As the person ultimately responsible for medication therapy, providers are able to order a medication from an existing home medication list in [facility] via the "Reconcile Routine" prior to Confirmation of that medication by residential direct support professional. Such practice is discouraged except when the physician, in their clinical judgment, deems that a medical need exists for a medication without regard to previous use.
--- NOTE | 2022-08-26 15:48 | PROVIDER PROGRESS NOTE ---
Subjective - Subjective Pt reports feeling: Improved (Feels stronger (is no longer as weak)), Worse (Had CP this afternoon, like his typical CP he gets "when he walks too fast") Objective - Vital Signs/Intake & Output Vital Signs: Vital Signs Temp Pulse Resp BP Pulse Ox 08/26/22 15:35 37.1 C 08/26/22 15:13 37.1 C 93 16 155/73 H 98 08/26/22 15:00 93 14 128/61 97 08/26/22 14:21 98 137/76 H 08/26/22 14:00 99 26 H 97 08/26/22 13:00 36.7 C 88 23 109/60 97 08/26/22 12:00 87 20 121/71 99 Intake & Output: Intake & Output 08/23/22 08/24/22 08/25/22 08/26/22 23:59 23:59 23:59 23:59 Intake Total 5369.166 3682.834 Output Total 500 2850 Balance 4869.166 832.834 - Objective General Appearance: positive: Mild distress (from current angina, rated 7/10>> d ecr to 1/10 with 1 sl NTG) Eyes Bilateral: positive: Normal inspection ENT: positive: ENT inspection nml, No signs of dehydration Neck: positive: Nml inspection, No JVD Respiratory: positive: No respiratory distress, Breath sounds nml Cardiovascular: positive: Regular rate & rhythm, No murmur Abdomen: positive: Non-tender, Nml bowel sounds, No distention Skin: positive: Color nml, Warm, Dry Extremities: positive: Non-tender, No pedal edema Neurologic/Psychiatric: positive: Oriented x3, Motor nml - Lab Results Fish Bones: 08/26/22 12:47 08/26/22 05:37 Other Labs: Lab Results x24hrs 08/26/22 08/26/22 08/26/22 Range/Units 12:47 12:47 05:37 WBC (4.8-10.8) x10^3/uL RBC (4.70-6.10) 10^6/uL Hgb 7.1 L (14.0-18.0) g/dL Hct (42.0-52.0) % MCV (80.0-94.0) fL MCH (27.0-31.0) pg MCHC (32.0-36.0) g/dL RDW (12.0-15.0) % Plt Count (130-450) 10^3/uL MPV (7.4-11.4) fL Neut # (Auto) (1.5-6.6) 10^3/uL Lymph # (Auto) (1.5-3.5) 10^3/uL [place] # (Auto) (0.0-1.0) 10^3/uL Eos # (Auto) (0.0-0.7) 10^3/uL Baso # (Auto) (0.0-0.1) 10^3/uL Absolute Nucleated RBC x10^3/uL Nucleated RBC % /100WBC VBG pH 7.285 L 7.328 (7.31-7.41) Ionized Calcium 0.99 L 1.04 L (1.15-1.33) mmol/L Sodium (135-145) mmol/L Potassium (3.5-5.0) mmol/L Chloride (101-111) mmol/L Carbon Dioxide (21-32) mmol/L Anion Gap (6-13) BUN (6-20) mg/dL Creatinine (0.6-1.2) mg/dL Estimated GFR (MDRD) (>89) Glucose (70-100) mg/dL Lactic Acid (0.5-2.2) mmol/L Calcium (8.5-10.3) mg/dL Phosphorus (2.5-4.6) mg/dL Magnesium (1.7-2.8) mg/dL Nasal Screen MRSA (PCR) (NEGATIVE) Blood Type Antibody Screen Crossmatch IS Only 08/26/22 08/26/22 08/26/22 Range/Units 05:37 05:37 01:19 WBC 6.4 (4.8-10.8) x10^3/uL RBC 2.38 L (4.70-6.10) 10^6/uL Hgb 6.7 L* 7.3 L (14.0-18.0) g/dL Hct 21.2 L (42.0-52.0) % MCV 89.1 (80.0-94.0) fL MCH 28.2 (27.0-31.0) pg MCHC 31.6 L (32.0-36.0) g/dL RDW 18.0 H (12.0-15.0) % Plt Count 109 L (130-450) 10^3/uL MPV 9.9 (7.4-11.4) fL Neut # (Auto) 4.6 (1.5-6.6) 10^3/uL Lymph # (Auto) 1.1 L (1.5-3.5) 10^3/uL [place] # (Auto) 0.5 (0.0-1.0) 10^3/uL Eos # (Auto) 0.1 (0.0-0.7) 10^3/uL Baso # (Auto) 0.0 (0.0-0.1) 10^3/uL Absolute Nucleated RBC 0.00 x10^3/uL Nucleated RBC % 0.0 /100WBC VBG pH (7.31-7.41) Ionized Calcium (1.15-1.33) mmol/L Sodium 138 (135-145) mmol/L Potassium 4.2 (3.5-5.0) mmol/L Chloride 111 (101-111) mmol/L Carbon Dioxide 21 (21-32) mmol/L Anion Gap 6.0 (6-13) BUN 30 H (6-20) mg/dL Creatinine 1.4 H (0.6-1.2) mg/dL Estimated GFR (MDRD) 48 L (>89) Glucose 98 (70-100) mg/dL Lactic Acid (0.5-2.2) mmol/L Calcium 7.6 L (8.5-10.3) mg/dL Phosphorus 3.4 (2.5-4.6) mg/dL Magnesium 1.8 (1.7-2.8) mg/dL Nasal Screen MRSA (PCR) (NEGATIVE) Blood Type Antibody Screen Crossmatch IS Only 08/25/22 08/25/22 08/25/22 Range/Units 19:54 19:54 18:40 WBC (4.8-10.8) x10^3/uL RBC (4.70-6.10) 10^6/uL Hgb 7.4 L (14.0-18.0) g/dL Hct (42.0-52.0) % MCV (80.0-94.0) fL MCH (27.0-31.0) pg MCHC (32.0-36.0) g/dL RDW (12.0-15.0) % Plt Count (130-450) 10^3/uL MPV (7.4-11.4) fL Neut # (Auto) (1.5-6.6) 10^3/uL Lymph # (Auto) (1.5-3.5) 10^3/uL [place] # (Auto) (0.0-1.0) 10^3/uL Eos # (Auto) (0.0-0.7) 10^3/uL Baso # (Auto) (0.0-0.1) 10^3/uL Absolute Nucleated RBC x10^3/uL Nucleated RBC % /100WBC VBG pH (7.31-7.41) Ionized Calcium (1.15-1.33) mmol/L Sodium (135-145) mmol/L Potassium (3.5-5.0) mmol/L Chloride (101-111) mmol/L Carbon Dioxide (21-32) mmol/L Anion Gap (6-13) BUN (6-20) mg/dL Creatinine (0.6-1.2) mg/dL Estimated GFR (MDRD) (>89) Glucose (70-100) mg/dL Lactic Acid 2.2 (0.5-2.2) mmol/L Calcium (8.5-10.3) mg/dL Phosphorus (2.5-4.6) mg/dL Magnesium (1.7-2.8) mg/dL Nasal Screen MRSA (PCR) NEGATIVE (NEGATIVE) Blood Type Antibody Screen Crossmatch IS Only 08/25/22 Range/Units 12:11 WBC (4.8-10.8) x10^3/uL RBC (4.70-6.10) 10^6/uL Hgb (14.0-18.0) g/dL Hct (42.0-52.0) % MCV (80.0-94.0) fL MCH (27.0-31.0) pg MCHC (32.0-36.0) g/dL RDW (12.0-15.0) % Plt Count (130-450) 10^3/uL MPV (7.4-11.4) fL Neut # (Auto) (1.5-6.6) 10^3/uL Lymph # (Auto) (1.5-3.5) 10^3/uL [place] # (Auto) (0.0-1.0) 10^3/uL Eos # (Auto) (0.0-0.7) 10^3/uL Baso # (Auto) (0.0-0.1) 10^3/uL Absolute Nucleated RBC x10^3/uL Nucleated RBC % /100WBC VBG pH (7.31-7.41) Ionized Calcium (1.15-1.33) mmol/L Sodium (135-145) mmol/L Potassium (3.5-5.0) mmol/L Chloride (101-111) mmol/L Carbon Dioxide (21-32) mmol/L Anion Gap (6-13) BUN (6-20) mg/dL Creatinine (0.6-1.2) mg/dL Estimated GFR (MDRD) (>89) Glucose (70-100) mg/dL Lactic Acid (0.5-2.2) mmol/L Calcium (8.5-10.3) mg/dL Phosphorus (2.5-4.6) mg/dL Magnesium (1.7-2.8) mg/dL Nasal Screen MRSA (PCR) (NEGATIVE) Blood Type A POSITIVE Antibody Screen NEGATIVE Crossmatch IS Only See Detail - Diagnostic Imaging Diagnostic Imaging Results: positive: Final report reviewed Assessment/Plan - Problem List (1) Diverticular hemorrhage Impression: Seen on CTA done at admission yesterday 08/25. He was kept on clear liquid diet then had a bowel prep overnight and underwent a colonoscopy this morning done by Dr. Connor. She found no active bleeding but there were clots throughout his colon. It appears that the active bleeding has stopped but we expect to still see clots in his BMs, which will be clearing from his colon. Plan: Liquid diet will be restarted Dr. Connor advised to keep the hemoglobin over 7 or over 8 if he is actively bleeding, to call her if there is liquidy, joy blood BMs and she has arranged that Dr. Charbel Holloway be available for this gentleman for 24 hours starting Sunday 08/27 at 0700 until Monday 08/28 at 0700, because no other surgeons are in town then. Advance the diet only when 2 consecutive hemoglobins have been stable, per Dr Connor No antibiotics were advised by the general surgeon Follow Hgb q6h Hold his aspirin (2) Hypotension due to blood loss Conclusion/Plan: His blood pressure still remained "soft" at about 100-110 systolic this a.m.. All his usual BP and cardiac meds are on hold since admission Plan: Remain ICU Vital signs every hour Follow hemoglobin q6h, plan for blood transfusions, as in #1 (3) Chest pain At approximately 1642 today, the patient complained of chest pressure across his precordium and blood pressure was 200 systolic. I examined him then. He described it as his typical angina feerling, which she gets "when he walks too quickly". Usually resolves with slowing down, taking deep breaths or drinking something and belching. He rarely uses SL NTG, he said. An EKG was ordered and sublingual nitro as needed was ordered.BP improved to 144 syst and CP decreased after 1 SL NTG The EKG showed (I interpreted): NSR, rate 94, PRWP, biphasic T waves in lateral leads. Since EKG from yesterday 08/25, the T wave changes are new. Plan: We will cycle troponins We will gingerly resume meds to correct this hypertension. Suspect HTN from his intravascular volume being replaced with 3U total blood transfusions today. (4) CAD As per history. He had 2 stents placed in 2002, these failed and he needed CABG done in 2003. He states that no stress tests have been done since the CABG. He does get occasional chest pain which improves with standing up and taking deep breaths or slowing down if he is walking to fast. There were no complaints of shortness of breath or chest pain during his "soft" blood pressures Plan: We will gingerly resume his cardiac meds and I will stagger them when restarted Hold his usual aspirin (5) AAA (abdominal aortic aneurysm) Conclusion/Plan: As per CTA result. He said he has never been told he has this Plan: Per vascular surgery discussion with our ED provider at admission, no special management was advised for the mural thrombus seen on CTA, daily aspirin when the patient is safe to be started on aspirin, and statin medication for overall PVD treatment. 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 I reviewed all labs. Creatinine is stable compared to his prior blood levels Plan: Avoid nephrotoxins Follow BMP daily (8) Hypothyroidism Labs were reviewed. TSH was in good range Plan: Resume his usual Synthroid dose, now that meds are reconciled by pharmacy (9) Lactic acidosis Conclusion/Plan: Resolved L.A. was elevated at presentation at 3. It was likely relate to tissue hypoperfusion from his hypotension. The next L.A. several hours later dropped to 2.2. Plan: As in #2
[2022-08-26] MEDS ORDERED: NITROGLYCERIN SL 0.4 MG TABLET SL PRN (16:43)
[2022-08-26] MEDS ORDERED: NITROGLYCERIN SL 0.4 MG TABLET SL ONE (16:48)
[2022-08-26] MEDS: METOPROLOL TARTRATE 25 MG TABLET PO SCH (18:37)
[2022-08-26] MEDS: PRAVASTATIN 40 MG TABLET PO SCH (20:55)
[2022-08-26] MEDS: FAMOTIDINE 20 MG TABLET PO SCH (20:57)
[2022-08-26] MEDS: lisinopriL 5 MG TABLET PO SCH (20:59)
[2022-08-26] MEDS: ISOSORBIDE MONONITRATE ER 30 MG TABLET PO SCH (20:59)
[2022-08-26] MEDS: LATANOPROST 0.005% OPHTH DROPS EACHEYE SCH (21:05)
[2022-08-26] MEDS ORDERED: LORazepam 2 MG/ML VIAL IVP PRN (21:15)
[2022-08-26] MEDS: timoloL maleate 0.5% OPHTH DROPS (10ML) EACHEYE SCH (21:18)
[2022-08-26 21:55] LABS: BASOPHILS % (AUTO) 0.4 %; EOSINOPHILS # (AUTO) 0.1 10^3/uL (0.0-0.7); EOSINOPHILS % (AUTO) 1.5 %; HCT - HEMATOCRIT 27.4 % (42.0-52.0); HGB - HEMOGLOBIN 8.9 g/dL (14.0-18.0); LYMPHOCYTES # (AUTO) 1.4 10^3/uL (1.5-3.5); LYMPHOCYTES % (AUTO) 15.3 %; MEAN CORPUSCULAR HEMOGLOBIN 29.4 pg (27.0-31.0); MEAN CORPUSCULAR HGB CONC 32.5 g/dL (32.0-36.0); MEAN CORPUSCULAR VOLUME 90.4 fL (80.0-94.0); MEAN PLATELET VOLUME 9.6 fL (7.4-11.4); MONOCYTES # (AUTO) 0.6 10^3/uL (0.0-1.0); MONOCYTES % (AUTO) 7.2 %; NEUTROPHILS # (AUTO) 6.7 10^3/uL (1.5-6.6); NEUTROPHILS % (AUTO) 75.3 %; PLT - PLATELET COUNT 107 10^3/uL (130-450); RED BLOOD COUNT 3.03 10^6/uL (4.70-6.10); RED CELL DISTRIBUTION WIDTH 15.9 % (12.0-15.0); WHITE BLOOD COUNT 8.9 x10^3/uL (4.8-10.8)
[2022-08-26 21:57] LABS: CALCIUM, IONIZED 1.05 mmol/L (1.15-1.33); VBG PH 7.379 (7.31-7.41)
[2022-08-26 22:17] LABS: ALBUMIN 2.9 g/dL (3.2-5.5); ALBUMIN/GLOBULIN RATIO 1.5 (1.0-2.2); BILIRUBIN,TOTAL 0.9 mg/dL (0.2-1.0); CALCIUM 8.1 mg/dL (8.5-10.3); CREATININE 1.3 mg/dL (0.6-1.2); POTASSIUM 4.3 mmol/L (3.5-5.0); TOTAL PROTEIN 4.8 g/dL (6.7-8.2)
[2022-08-27 05:29] LABS: CALCIUM, IONIZED 1.09 mmol/L (1.15-1.33); VBG PH 7.44 (7.31-7.41)
[2022-08-27 05:39] LABS: CREATININE 1.3 mg/dL (0.6-1.2); PHOSPHORUS 3.2 mg/dL (2.5-4.6); POTASSIUM 4.2 mmol/L (3.5-5.0)
[2022-08-27] MEDS ORDERED: CALCIUM GLUC 1,000MG/50ML-NACL 1,000 MG/50 ML BAG IV ONE (05:50)
[2022-08-27] MEDS: SODIUM CHLORIDE 0.9% 1,000 ML IV SCH (06:01)
[2022-08-27] MEDS ORDERED: MAGNESIUM SULFATE 2 GRAM 2 GM/50 ML BAG IV ONE (06:13)
[2022-08-27] MEDS: LEVOTHYROXINE 100 MCG TABLET PO SCH (06:51)
--- NOTE | 2022-08-27 07:31 | PROVIDER PROGRESS NOTE ---
Subjective - General Admit Date: 08/25/22 Procedure Date: 08/26/22 Post Op Days: 1 Procedure Performed: colonoscopy - Review of Systems All Other Systems: positive: Reviewed and negative - Other Other Information/Narrative: Patient states he's had some chest pain "like I always do" when he is up out of bed. He was impulsive overnight per RN. This morning, he denies any nausea or abdominal pain. No BM's overnight. Objective - Patient Data Reviewed Vital Signs: Yes Vital Signs: Vital Signs x48h Temp Pulse Resp BP Pulse Ox 08/27/22 06:00 66 14 151/69 H 93 08/27/22 05:00 63 20 96/66 96 08/27/22 04:00 36.6 C 63 16 100/60 94 08/27/22 03:00 67 17 98/47 L 96 08/27/22 02:00 66 17 131/53 H 96 08/27/22 01:00 75 19 127/74 96 08/27/22 00:00 65 15 149/63 H 96 Weight: Weight 08/25/22 08/26/22 08/27/22 23:59 23:59 23:59 Weight (kg) 87.5 kg 87 kg 88 kg Intake & Output: Intake and Output Totals x24h 08/25/22 08/26/22 08/27/22 23:59 23:59 23:59 Intake Total 5369.166 8340.751 504.166 Output Total 500 4900 1375 Balance 4869.166 3440.751 -870.834 - Lab Results Lab Results: 08/27/22 05:17 08/27/22 05:17 Other Lab Results: Lab Results x24hrs 08/27/22 08/27/22 08/27/22 Range/Units 05:17 05:17 05:17 WBC (4.8-10.8) x10^3/uL RBC (4.70-6.10) 10^6/uL Hgb 7.5 L (14.0-18.0) g/dL Hct (42.0-52.0) % MCV (80.0-94.0) fL MCH (27.0-31.0) pg MCHC (32.0-36.0) g/dL RDW (12.0-15.0) % Plt Count (130-450) 10^3/uL MPV (7.4-11.4) fL Neut # (Auto) (1.5-6.6) 10^3/uL Lymph # (Auto) (1.5-3.5) 10^3/uL Sterling # (Auto) (0.0-1.0) 10^3/uL Eos # (Auto) (0.0-0.7) 10^3/uL Baso # (Auto) (0.0-0.1) 10^3/uL Absolute Nucleated RBC x10^3/uL Nucleated RBC % /100WBC VBG pH (7.31-7.41) Ionized Calcium (1.15-1.33) mmol/L Sodium (135-145) mmol/L Potassium (3.5-5.0) mmol/L Chloride (101-111) mmol/L Carbon Dioxide (21-32) mmol/L Anion Gap (6-13) BUN (6-20) mg/dL Creatinine (0.6-1.2) mg/dL Estimated GFR (MDRD) (>89) Glucose (70-100) mg/dL Calcium (8.5-10.3) mg/dL Phosphorus (2.5-4.6) mg/dL Magnesium 1.7 (1.7-2.8) mg/dL Total Bilirubin (0.2-1.0) mg/dL AST (10-42) IU/L ALT (10-60) IU/L Alkaline Phosphatase (42-121) IU/L Troponin I High Sens 43.6 H* (2.3-19.7) ng/L Total Protein (6.7-8.2) g/dL Albumin (3.2-5.5) g/dL Globulin (2.1-4.2) g/dL Albumin/Globulin Ratio (1.0-2.2) Blood Type Antibody Screen Crossmatch IS Only 08/27/22 08/27/22 08/26/22 Range/Units 05:17 05:17 21:49 WBC (4.8-10.8) x10^3/uL RBC (4.70-6.10) 10^6/uL Hgb (14.0-18.0) g/dL Hct (42.0-52.0) % MCV (80.0-94.0) fL MCH (27.0-31.0) pg MCHC (32.0-36.0) g/dL RDW (12.0-15.0) % Plt Count (130-450) 10^3/uL MPV (7.4-11.4) fL Neut # (Auto) (1.5-6.6) 10^3/uL Lymph # (Auto) (1.5-3.5) 10^3/uL Sterling # (Auto) (0.0-1.0) 10^3/uL Eos # (Auto) (0.0-0.7) 10^3/uL Baso # (Auto) (0.0-0.1) 10^3/uL Absolute Nucleated RBC x10^3/uL Nucleated RBC % /100WBC VBG pH 7.440 H (7.31-7.41) Ionized Calcium 1.09 L (1.15-1.33) mmol/L Sodium 138 138 (135-145) mmol/L Potassium 4.2 4.3 (3.5-5.0) mmol/L Chloride 110 109 (101-111) mmol/L Carbon Dioxide 19 L 21 (21-32) mmol/L Anion Gap 9.0 8.0 (6-13) BUN 23 H 24 H (6-20) mg/dL Creatinine 1.3 H 1.3 H (0.6-1.2) mg/dL Estimated GFR (MDRD) 52 L 52 L (>89) Glucose 91 95 (70-100) mg/dL Calcium 8.0 L 8.1 L (8.5-10.3) mg/dL Phosphorus 3.2 (2.5-4.6) mg/dL Magnesium (1.7-2.8) mg/dL Total Bilirubin 0.9 (0.2-1.0) mg/dL AST 25 (10-42) IU/L ALT 17 (10-60) IU/L Alkaline Phosphatase 35 L (42-121) IU/L Troponin I High Sens (2.3-19.7) ng/L Total Protein 4.8 L (6.7-8.2) g/dL Albumin 2.9 L (3.2-5.5) g/dL Globulin 1.9 L (2.1-4.2) g/dL Albumin/Globulin Ratio 1.5 (1.0-2.2) Blood Type Antibody Screen Crossmatch IS Only 08/26/22 08/26/22 08/26/22 Range/Units 21:49 21:49 21:49 WBC 8.9 (4.8-10.8) x10^3/uL RBC 3.03 L (4.70-6.10) 10^6/uL Hgb 8.9 L (14.0-18.0) g/dL Hct 27.4 L (42.0-52.0) % MCV 90.4 (80.0-94.0) fL MCH 29.4 (27.0-31.0) pg MCHC 32.5 (32.0-36.0) g/dL RDW 15.9 H (12.0-15.0) % Plt Count 107 L (130-450) 10^3/uL MPV 9.6 (7.4-11.4) fL Neut # (Auto) 6.7 H (1.5-6.6) 10^3/uL Lymph # (Auto) 1.4 L (1.5-3.5) 10^3/uL Sterling # (Auto) 0.6 (0.0-1.0) 10^3/uL Eos # (Auto) 0.1 (0.0-0.7) 10^3/uL Baso # (Auto) 0.0 (0.0-0.1) 10^3/uL Absolute Nucleated RBC 0.00 x10^3/uL Nucleated RBC % 0.0 /100WBC VBG pH 7.379 (7.31-7.41) Ionized Calcium 1.05 L (1.15-1.33) mmol/L Sodium (135-145) mmol/L Potassium (3.5-5.0) mmol/L Chloride (101-111) mmol/L Carbon Dioxide (21-32) mmol/L Anion Gap (6-13) BUN (6-20) mg/dL Creatinine (0.6-1.2) mg/dL Estimated GFR (MDRD) (>89) Glucose (70-100) mg/dL Calcium (8.5-10.3) mg/dL Phosphorus (2.5-4.6) mg/dL Magnesium (1.7-2.8) mg/dL Total Bilirubin (0.2-1.0) mg/dL AST (10-42) IU/L ALT (10-60) IU/L Alkaline Phosphatase (42-121) IU/L Troponin I High Sens 32.7 H* (2.3-19.7) ng/L Total Protein (6.7-8.2) g/dL Albumin (3.2-5.5) g/dL Globulin (2.1-4.2) g/dL Albumin/Globulin Ratio (1.0-2.2) Blood Type Antibody Screen Crossmatch IS Only 08/26/22 08/26/22 08/26/22 Range/Units 17:00 12:47 12:47 WBC (4.8-10.8) x10^3/uL RBC (4.70-6.10) 10^6/uL Hgb 7.1 L (14.0-18.0) g/dL Hct (42.0-52.0) % MCV (80.0-94.0) fL MCH (27.0-31.0) pg MCHC (32.0-36.0) g/dL RDW (12.0-15.0) % Plt Count (130-450) 10^3/uL MPV (7.4-11.4) fL Neut # (Auto) (1.5-6.6) 10^3/uL Lymph # (Auto) (1.5-3.5) 10^3/uL Sterling # (Auto) (0.0-1.0) 10^3/uL Eos # (Auto) (0.0-0.7) 10^3/uL Baso # (Auto) (0.0-0.1) 10^3/uL Absolute Nucleated RBC x10^3/uL Nucleated RBC % /100WBC VBG pH 7.285 L (7.31-7.41) Ionized Calcium 0.99 L (1.15-1.33) mmol/L Sodium (135-145) mmol/L Potassium (3.5-5.0) mmol/L Chloride (101-111) mmol/L Carbon Dioxide (21-32) mmol/L Anion Gap (6-13) BUN (6-20) mg/dL Creatinine (0.6-1.2) mg/dL Estimated GFR (MDRD) (>89) Glucose (70-100) mg/dL Calcium (8.5-10.3) mg/dL Phosphorus (2.5-4.6) mg/dL Magnesium (1.7-2.8) mg/dL Total Bilirubin (0.2-1.0) mg/dL AST (10-42) IU/L ALT (10-60) IU/L Alkaline Phosphatase (42-121) IU/L Troponin I High Sens 17.7 (2.3-19.7) ng/L Total Protein (6.7-8.2) g/dL Albumin (3.2-5.5) g/dL Globulin (2.1-4.2) g/dL Albumin/Globulin Ratio (1.0-2.2) Blood Type Antibody Screen Crossmatch IS Only 08/25/22 Range/Units 12:11 WBC (4.8-10.8) x10^3/uL RBC (4.70-6.10) 10^6/uL Hgb (14.0-18.0) g/dL Hct (42.0-52.0) % MCV (80.0-94.0) fL MCH (27.0-31.0) pg MCHC (32.0-36.0) g/dL RDW (12.0-15.0) % Plt Count (130-450) 10^3/uL MPV (7.4-11.4) fL Neut # (Auto) (1.5-6.6) 10^3/uL Lymph # (Auto) (1.5-3.5) 10^3/uL Sterling # (Auto) (0.0-1.0) 10^3/uL Eos # (Auto) (0.0-0.7) 10^3/uL Baso # (Auto) (0.0-0.1) 10^3/uL Absolute Nucleated RBC x10^3/uL Nucleated RBC % /100WBC VBG pH (7.31-7.41) Ionized Calcium (1.15-1.33) mmol/L Sodium (135-145) mmol/L Potassium (3.5-5.0) mmol/L Chloride (101-111) mmol/L Carbon Dioxide (21-32) mmol/L Anion Gap (6-13) BUN (6-20) mg/dL Creatinine (0.6-1.2) mg/dL Estimated GFR (MDRD) (>89) Glucose (70-100) mg/dL Calcium (8.5-10.3) mg/dL Phosphorus (2.5-4.6) mg/dL Magnesium (1.7-2.8) mg/dL Total Bilirubin (0.2-1.0) mg/dL AST (10-42) IU/L ALT (10-60) IU/L Alkaline Phosphatase (42-121) IU/L Troponin I High Sens (2.3-19.7) ng/L Total Protein (6.7-8.2) g/dL Albumin (3.2-5.5) g/dL Globulin (2.1-4.2) g/dL Albumin/Globulin Ratio (1.0-2.2) Blood Type A POSITIVE Antibody Screen NEGATIVE Crossmatch IS Only See Detail - Current Medications Current Medications: Current Medications Generic Name Dose Route Start Last Admin Trade Name Freq PRN Reason Stop Dose Admin Famotidine 20 mg 08/26/22 21:00 08/26/22 20:57 Famotidine 20 Mg Tablet PO 20 mg BID DINORAH Administration Sodium Chloride 1,000 mls @ 125 mls/hr 08/25/22 18:30 08/27/22 06:02 Normal Saline 0.9% IV 0 mls/hr .Q8H DINORAH Infusion Isosorbide Mononitrate 30 mg 08/26/22 21:00 08/26/22 20:59 Isosorbide Mononitrate Er 30 Mg Tablet PO 30 mg BID DINORAH Administration Latanoprost 1 drops 08/26/22 21:00 08/26/22 21:05 Latanoprost 0.005% Ophth Drops EACHEYE 1 drops QPM DINORAH Administration Levothyroxine Sodium 100 mcg 08/27/22 07:00 08/27/22 06:51 Levothyroxine 100 Mcg Tablet PO 100 mcg QDAC DINORAH Administration Lisinopril 10 mg 08/26/22 21:00 08/26/22 20:59 Lisinopril 5 Mg Tablet PO 10 mg BID DINORAH Administration Metoprolol Tartrate 25 mg 08/26/22 17:07 08/26/22 18:37 Metoprolol Tartrate 25 Mg Tablet PO 25 mg TIDWM DINORAH Administration Nitroglycerin 0.4 mg 08/26/22 16:43 08/26/22 16:45 Nitroglycerin Sl 0.4 Mg Tablet SL 0.4 mg Q5MIN PRN Administration Chest Pain Ondansetron HCl 4 mg 08/25/22 17:53 08/25/22 19:11 Ondansetron 4 Mg/2 Ml Vial IVP 4 mg Q6HR PRN Administration Nausea / Vomiting Pravastatin Sodium 60 mg 08/26/22 21:00 08/26/22 20:55 Pravastatin 40 Mg Tablet PO 60 mg QPM DINORAH Administration Sodium Chloride 10 ml 08/26/22 01:00 08/26/22 20:53 Sodium Chloride Flush 0.9% 10 Ml Syringe IVP 10 ml 0100,0900,1700 DINORAH Administration Sodium Chloride 10 ml 08/25/22 17:53 08/25/22 19:14 Sodium Chloride Flush 0.9% 10 Ml Syringe IVP 10 ml PRN PRN Administration NEEDED PER PROVIDER ORDERS Timolol Maleate 1 drops 08/26/22 21:00 08/26/22 21:18 Timolol Maleate 0.5% Ophth Drops (10ml) EACHEYE Not Given BID DINORAH - Physical Exam General Appearance: positive: No acute distress, Alert Eyes Bilateral: positive: Normal inspection, PERRL, EOMI Neck: positive: Trachea midline Respiratory: positive: Chest non-tender, No respiratory distress Cardiovascular: positive: Regular rate & rhythm Abdomen: positive: Non-tender, No distention. negative: Guarding, Rebound Skin: positive: Color nml, No rash Extremities: positive: Non-tender, Full ROM Neurologic/Psychiatric: positive: Oriented x3 Impression/Plan - Problem List Problem List: This is an 86-year-old gentleman with: 1. 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 Generally, bleeding of this nature, resolves spontaneously. No active bleeding or site identified on colonoscopy, 08/25. If patient's hemoglobin does not stabilize, condsider repeat colonoscopy. Patient is high risk for surgery and would likely colostomy if surgery is undertaken. - on clear liquid diet 2. Anemia 2/2 GI bleed - Hgb 7.5 this AM, continue to follow closely with q6h hgb. - s/p transfusion, total of 4 units PRB's 3. AAA - aorta contains chronic, non occlusive thrombus. 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 - Recommend f/u with vascular surgery as an outpatient - Vascular surgery phone consult in ED also recommended statin (patient has not tolerated well in the past) and ASA (not recommended by general surgery at this time given GI bleed). 4. Confusion/delirium - patient endorses drinking 2-3 drinks per day - on CIWA protocol, has not required meds - encourage up during day, quiet at night to mitigate ICU delirium contributions 2. Hypertension, coronary artery disease, high cholesterol, hypothyroidism, prostate cancer, glaucoma - troponins elevated but not doubling, still having some chest pain, especially with activity (patient states this is true for him at baseline) - management as per primary team I reviewed the plan of care with the patient and primary team this AM. General surgery coverage today by Dr. Charbel Holloway who is up to date on nivia montero's status. Dr. Mitchell will be communications systems engineer for general surgery tomorrow AM at 0700. General surgery will continue to follow closely.
[2022-08-27] MEDS: METOPROLOL TARTRATE 25 MG TABLET PO SCH ×3 (07:52→16:30)
[2022-08-27] MEDS: ISOSORBIDE MONONITRATE ER 30 MG TABLET PO SCH ×2 (07:53→20:11)
[2022-08-27] MEDS: FAMOTIDINE 20 MG TABLET PO SCH ×2 (07:53→20:11)
[2022-08-27] MEDS: lisinopriL 5 MG TABLET PO SCH ×2 (07:53→20:11)
[2022-08-27] MEDS: timoloL maleate 0.5% OPHTH DROPS (10ML) EACHEYE SCH ×2 (07:56→20:13)
[2022-08-27] MEDS ORDERED: ISOSORBIDE MONONITRATE 60 MG PO SCH (09:00)
[2022-08-27] MEDS: THIAMINE 100 MG TABLET PO SCH (09:05)
[2022-08-27] MEDS: PRENATAL VITAMIN TABLET PO SCH (09:05)
[2022-08-27] MEDS: SODIUM CHLORIDE FLUSH 0.9% 10 ML SYRINGE IVP SCH ×2 (09:05→16:30)
[2022-08-27] MEDS: SODIUM CHLORIDE FLUSH 0.9% 10 ML SYRINGE IVP PRN (09:47)
[2022-08-27 10:15] LABS: CALCIUM, IONIZED 1.13 mmol/L (1.15-1.33); VBG PH 7.368 (7.31-7.41)
[2022-08-27 10:16] LABS: BASOPHILS % (AUTO) 0.5 %; EOSINOPHILS # (AUTO) 0.2 10^3/uL (0.0-0.7); EOSINOPHILS % (AUTO) 2.1 %; HCT - HEMATOCRIT 23.6 % (42.0-52.0); HGB - HEMOGLOBIN 7.7 g/dL (14.0-18.0); LYMPHOCYTES # (AUTO) 0.9 10^3/uL (1.5-3.5); MEAN CORPUSCULAR HEMOGLOBIN 29.5 pg (27.0-31.0); MEAN CORPUSCULAR HGB CONC 32.6 g/dL (32.0-36.0); MEAN CORPUSCULAR VOLUME 90.4 fL (80.0-94.0); MEAN PLATELET VOLUME 9.8 fL (7.4-11.4); MONOCYTES # (AUTO) 0.5 10^3/uL (0.0-1.0); NEUTROPHILS # (AUTO) 5.8 10^3/uL (1.5-6.6); NEUTROPHILS % (AUTO) 77.6 %; PLT - PLATELET COUNT 102 10^3/uL (130-450); RED BLOOD COUNT 2.61 10^6/uL (4.70-6.10); RED CELL DISTRIBUTION WIDTH 16.6 % (12.0-15.0); WHITE BLOOD COUNT 7.5 x10^3/uL (4.8-10.8)
--- NOTE | 2022-08-27 13:46 | PROVIDER PROGRESS NOTE ---
Assessment/Plan - Problem List (1) Diverticular hemorrhage Assessment/Plan: Seen on CTA done at admission 08/25. He was kept on clear liquid diet then had a bowel prep and underwent a colonoscopy on 08/[address] Connor. She found no active bleeding but there were clots throughout his colon. He has not had any stool overnight, prior to that was still passing clots It appears that the active bleeding has stopped and clots may have all cleared. Plan: Liquid diet to continue until 2 consecutive Hgb levels are stable and not dropping. Dr. Connor advised to keep the hemoglobin over 7 or over 8 if he is actively bleeding, to call her if there is liquidy, joy blood BMs and she has arranged that Gen Surgeon Dr. Charbel Holloway be available for this gentleman for 24 hours starting today Sunday 08/27 at 0700 until Monday 08/28 at 0700, because no other surgeons are in town. No antibiotics are needed Follow Hgb q6h Continue to hold his aspirin (2) Hypotension due to blood loss Conclusion/Plan: His blood pressure was still soft" yesterday at about 100-110 systolic. His BP improved yesterday afternoon and he was allowed to get OOB. Plan: Remain in ICU Vital signs every hour>> today q4h Follow hemoglobin q6h, plan for blood transfusions, as in #1 (3) Chest pain On 08/26 in the afternoon, the patient complained of chest pressure across his precordium and blood pressure was 200 systolic. I examined him then. He described it as his typical angina feerling, which she gets "when he walks too quickly". Usually resolves with slowing down, taking deep breaths or drinking something and belching. He rarely uses SL NTG, he said. An EKG was ordered during the pain and sublingual nitro as needed was ordered. BP improved to 144 syst and CP decreased after 1 SL NTG The EKG showed new biphasic T waves in lateral leads. Troponins showed a minor increase: Suspect HTN developed from his getting 3U total of blood transfusions yesterday We resumed his cardiac meds, with hold parameters. Plan: Continue all restarted meds (4) CAD As per history. He had 2 stents placed in 2002, these failed and he needed CABG done in 2003. He states that no stress tests have been done since the CABG. He does get occasional chest pain which improves with standing up and taking deep breaths or slowing down if he is walking to fast. There were no complaints of shortness of breath or chest pain during his "soft" blood pressures We have gingerly resumed his cardiac meds and stagger them when restarted, due to "soft" BP before the HTN Plan: Continue all restarted meds Hold his usual aspirin (5) AAA (abdominal aortic aneurysm) Conclusion/Plan: As per CTA result. He said he has never been told he has this Per vascular surgery discussion with our ED provider at admission, no special management was advised for the mural thrombus seen on CTA, daily aspirin when the patient is safe to be started on aspirin, and statin medication for overall PVD treatment. We restarted his statin yesterday 08/26 Plan: He will need follow-up with a vascular surgeon after this hospitalization (6) PVD (peripheral vascular disease) Conclusion/Plan: Iliac artery and renal artery disease were also seen on CTA abd done yesterday Plan: As in #5 (7) CKD (chronic kidney disease) Conclusion/Plan: The atrophic kidney likely represents the reason for his CKD. I reviewed all labs. Creatinine is stable compared to his prior blood levels Plan: Avoid nephrotoxins Follow BMP daily (8) Hypothyroidism Labs were reviewed. TSH was in good range Plan: Cont his usual Synthroid dose (9) Lactic acidosis Conclusion/Plan: Resolved L.A. was elevated at presentation at 3. It was likely relate to tissue hypoperfusion from his hypotension. The next L.A. several hours later dropped to 2.2. Plan: As in #2 - Current Meds Current Meds: Current Medications Generic Name Dose Route Start Last Admin Trade Name Freq PRN Reason Stop Dose Admin Famotidine 20 mg 08/26/22 21:00 08/27/22 07:53 Famotidine 20 Mg Tablet PO 20 mg BID DINORAH Administration Isosorbide Mononitrate 30 mg 08/26/22 21:00 08/27/22 07:53 Isosorbide Mononitrate Er 30 Mg Tablet PO 30 mg BID DINORAH Administration Latanoprost 1 drops 08/26/22 21:00 08/26/22 21:05 Latanoprost 0.005% Ophth Drops EACHEYE 1 drops QPM DINORAH Administration Levothyroxine Sodium 100 mcg 08/27/22 07:00 08/27/22 06:51 Levothyroxine 100 Mcg Tablet PO 100 mcg QDAC DINORAH Administration Lisinopril 10 mg 08/26/22 21:00 08/27/22 07:53 Lisinopril 5 Mg Tablet PO 10 mg BID DINORAH Administration Metoprolol Tartrate 25 mg 08/26/22 17:07 08/27/22 11:55 Metoprolol Tartrate 25 Mg Tablet PO 25 mg TIDWM DINORAH Administration Nitroglycerin 0.4 mg 08/26/22 16:43 08/26/22 16:45 Nitroglycerin Sl 0.4 Mg Tablet SL 0.4 mg Q5MIN PRN Administration Chest Pain Ondansetron HCl 4 mg 08/25/22 17:53 08/25/22 19:11 Ondansetron 4 Mg/2 Ml Vial IVP 4 mg Q6HR PRN Administration Nausea / Vomiting Pravastatin Sodium 60 mg 08/26/22 21:00 08/26/22 20:55 Pravastatin 40 Mg Tablet PO 60 mg QPM DINORAH Administration Multivit/Folic Acid/Iron 1 tab 08/27/22 09:00 08/27/22 09:05 Vitamin Tablet PO 1 tab DAILY DINORAH Administration Sodium Chloride 10 ml 08/26/22 01:00 08/27/22 09:05 Sodium Chloride Flush 0.9% 10 Ml Syringe IVP 10 ml 0100,0900,1700 DINORAH Administration Sodium Chloride 10 ml 08/25/22 17:53 08/27/22 09:47 Sodium Chloride Flush 0.9% 10 Ml Syringe IVP 10 ml PRN PRN Administration NEEDED PER PROVIDER ORDERS Thiamine HCl 100 mg 08/27/22 09:00 08/27/22 09:05 Thiamine 100 Mg Tablet PO 100 mg DAILY DINORAH Administration Timolol Maleate 1 drops 08/26/22 21:00 08/27/22 07:56 Timolol Maleate 0.5% Ophth Drops (10ml) EACHEYE 1 drops BID DINORAH Administration - Lab Result Fish Bone Diagrams: 08/27/22 10:10 08/27/22 05:17 - Additional Planning My Orders: My Active Orders 08/26/22 13:49 Transfuse RBCs Leukoreduced [RC] .ONCE 08/26/22 16:43 Nitroglycerin [Nitrostat] 0.4 mg SL Q5MIN PRN 08/26/22 17:07 Metoprolol Tartrate [Lopressor] 25 mg PO TIDWM 08/26/22 19:36 Vital Signs - Orthostatic [RC] QSHIFT 08/26/22 19:37 Miscellaenous Nursing Order [RC] QSHIFT 08/26/22 21:00 Famotidine [Pepcid] 20 mg PO BID Isosorbide Mononitrate ER [Imdur] 30 mg PO BID Latanoprost 0.005% Ophth Drops [Xalatan Ophth Drops] 1 drops EACHEYE QPM Pravastatin [Pravachol] 60 mg PO QPM lisinopriL [Zestril] 10 mg PO BID timoloL 0.5% OPHTH DROPS(10ML) [Timoptic 0.5% Ophth Drops] 1 drops EACHEYE BID 08/27/22 07:00 Levothyroxine [Synthroid] 100 mcg PO QDAC 08/27/22 07:43 CIWA - AR Score Card [RC] Q4HR 08/27/22 17:00 HGB - HEMOGLOBIN [HEME] Q6H 08/27/22 23:00 HGB - HEMOGLOBIN [HEME] Q6H 08/28/22 05:00 CALCIUM, IONIZED ([facility]) [BG] DAILYLAB HGB - HEMOGLOBIN [HEME] Q6H MAGNESIUM [CHEM] DAILYLAB PHOSPHORUS [CHEM] DAILYLAB 08/28/22 11:00 HGB - HEMOGLOBIN [HEME] Q6H 08/28/22 17:00 HGB - HEMOGLOBIN [HEME] Q6H 08/28/22 23:00 HGB - HEMOGLOBIN [HEME] Q6H 08/29/22 05:00 MAGNESIUM [CHEM] DAILYLAB Subjective - Subjective Patient Reports: Feeling Better (He wants to start walking), Resting Comfortably, No Complaints Objective Vital Signs: Vital Signs - 24 hr 08/26/22 08/26/22 08/26/22 14:00 14:21 15:00 Temperature Heart Rate Heart Rate [ 99 98 93 Monitoring electrodes] Respiratory 26 H 14 Rate Blood Pressure Blood Pressure 137/76 H 128/61 [Right Brachial artery] O2 Saturation 97 97 08/26/22 08/26/22 08/26/22 15:13 15:28 15:35 Temperature 37.1 C 36.8 C 37.1 C Heart Rate Heart Rate [ 93 90 Monitoring electrodes] Respiratory 16 18 Rate Blood Pressure Blood Pressure 155/73 H 159/72 H [Right Brachial artery] O2 Saturation 98 98 08/26/22 08/26/22 08/26/22 15:40 15:45 16:00 Temperature 37 C 37.3 C Heart Rate Heart Rate [ 92 90 86 Monitoring electrodes] Respiratory 20 16 20 Rate Blood Pressure Blood Pressure 161/83 H 151/80 H 139/71 H [Right Brachial artery] O2 Saturation 98 97 96 08/26/22 08/26/22 08/26/22 16:45 16:47 16:50 Temperature Heart Rate 90 Heart Rate [ 90 94 Monitoring electrodes] Respiratory 16 20 Rate Blood Pressure 194/108 H Blood Pressure 194/108 H 177/102 H [Right Brachial artery] O2 Saturation 98 99 08/26/22 08/26/22 08/26/22 16:55 17:00 17:15 Temperature 37.3 C 37.4 C Heart Rate Heart Rate [ 102 H 109 H 102 H Monitoring electrodes] Respiratory 30 H 23 20 Rate Blood Pressure Blood Pressure 125/82 H 136/83 H 127/77 [Right Brachial artery] O2 Saturation 97 96 99 08/26/22 08/26/22 08/26/22 17:16 17:55 18:00 Temperature 37 C Heart Rate Heart Rate [ 108 H 95 98 Monitoring electrodes] Respiratory 22 25 H 17 Rate Blood Pressure Blood Pressure 121/73 114/93 H [Right Brachial artery] O2 Saturation 100 100 98 08/26/22 08/26/22 08/26/22 18:12 18:37 19:00 Temperature 37.6 C Heart Rate Heart Rate [ 98 87 Monitoring electrodes] Respiratory 22 16 Rate Blood Pressure 158/75 H Blood Pressure 158/75 H 126/65 [Right Brachial artery] O2 Saturation 98 97 08/26/22 08/26/22 08/26/22 19:30 20:00 21:06 Temperature 37.0 C 36.7 C Heart Rate Heart Rate [ 69 65 Monitoring electrodes] Respiratory 24 19 Rate Blood Pressure Blood Pressure 155/67 H 149/78 H [Right Brachial artery] O2 Saturation 97 96 08/26/22 08/26/22 08/26/22 22:15 22:58 23:00 Temperature 36.6 C Heart Rate Heart Rate [ 75 68 Monitoring electrodes] Respiratory 19 12 Rate Blood Pressure Blood Pressure 159/87 H 135/68 H [Right Brachial artery] O2 Saturation 96 97 08/27/22 08/27/22 08/27/22 00:00 01:00 02:00 Temperature Heart Rate Heart Rate [ 65 75 66 Monitoring electrodes] Respiratory 15 19 17 Rate Blood Pressure Blood Pressure 149/63 H 127/74 131/53 H [Right Brachial artery] O2 Saturation 96 96 96 08/27/22 08/27/22 08/27/22 03:00 04:00 05:00 Temperature 36.6 C Heart Rate Heart Rate [ 67 63 63 Monitoring electrodes] Respiratory 17 16 20 Rate Blood Pressure Blood Pressure 98/47 L 100/60 96/66 [Right Brachial artery] O2 Saturation 96 94 96 08/27/22 08/27/22 08/27/22 06:00 07:52 08:00 Temperature 36.8 C Heart Rate Heart Rate [ 66 84 Monitoring electrodes] Respiratory 14 22 Rate Blood Pressure 188/94 H Blood Pressure 151/69 H 184/88 H [Right Brachial artery] O2 Saturation 93 97 08/27/22 08/27/22 08/27/22 09:00 10:00 11:00 Temperature Heart Rate Heart Rate [ 76 66 68 Monitoring electrodes] Respiratory 19 21 18 Rate Blood Pressure Blood Pressure 153/85 H 154/74 H 142/80 H [Right Brachial artery] O2 Saturation 97 100 97 08/27/22 08/27/22 08/27/22 11:55 12:00 13:00 Temperature 36.9 C Heart Rate Heart Rate [ 73 70 Monitoring electrodes] Respiratory 12 24 Rate Blood Pressure 142/80 H Blood Pressure 137/85 H 129/83 H [Right Brachial artery] O2 Saturation 99 98 Oxygen O2 Source Room air I&O (Last 24 Hrs): Intake and Output Totals x24h 08/25/22 08/26/22 08/27/22 23:59 23:59 23:59 Intake Total 5369.166 8340.751 2424.083 Output Total 500 4900 2150 Balance 4869.166 3440.751 274.083 General: Alert, Oriented x3 HEENT: Atraumatic, EOMI Neck: Supple, No JVD Neuro: Alert, Non Focal Cardiovascular: Regular rate, No murmurs Respiratory: No respiratory distress, Breath sounds nml Abdomen: Normal bowel sounds, Soft, No tenderness Extremities: No clubbing, No edema - Results Results: Laboratory Results WBC 7.5 x10^3/uL (4.8-10.8) 08/27/22 10:10 RBC 2.61 10^6/uL (4.70-6.10) L 08/27/22 10:10 Hgb 7.7 g/dL (14.0-18.0) L 08/27/22 10:10 Hct 23.6 % (42.0-52.0) L 08/27/22 10:10 MCV 90.4 fL (80.0-94.0) 08/27/22 10:10 MCH 29.5 pg (27.0-31.0) 08/27/22 10:10 MCHC 32.6 g/dL (32.0-36.0) 08/27/22 10:10 RDW 16.6 % (12.0-15.0) H 08/27/22 10:10 Plt Count 102 10^3/uL (130-450) L 08/27/22 10:10 MPV 9.8 fL (7.4-11.4) 08/27/22 10:10 Neut # (Auto) 5.8 10^3/uL (1.5-6.6) 08/27/22 10:10 Lymph # (Auto) 0.9 10^3/uL (1.5-3.5) L 08/27/22 10:10 [place] # (Auto) 0.5 10^3/uL (0.0-1.0) 08/27/22 10:10 Eos # (Auto) 0.2 10^3/uL (0.0-0.7) 08/27/22 10:10 Baso # (Auto) 0.0 10^3/uL (0.0-0.1) 08/27/22 10:10 Absolute Nucleated RBC 0.00 x10^3/uL 08/27/22 10:10 Nucleated RBC % 0.0 /100WBC 08/27/22 10:10 PT 10.8 secs (9.9-12.6) 08/25/22 12:11 INR 1.0 (0.8-1.2) 08/25/22 12:11 VBG pH 7.368 (7.31-7.41) 08/27/22 10:10 Ionized Calcium 1.13 mmol/L (1.15-1.33) L 08/27/22 10:10 Sodium 138 mmol/L (135-145) 08/27/22 05:17 Potassium 4.2 mmol/L (3.5-5.0) 08/27/22 05:17 Chloride 110 mmol/L (101-111) 08/27/22 05:17 Carbon Dioxide 19 mmol/L (21-32) L 08/27/22 05:17 Anion Gap 9.0 (6-13) 08/27/22 05:17 BUN 23 mg/dL (6-20) H 08/27/22 05:17 Creatinine 1.3 mg/dL (0.6-1.2) H 08/27/22 05:17 Estimated GFR (MDRD) 52 (>89) L 08/27/22 05:17 Glucose 91 mg/dL (70-100) 08/27/22 05:17 Lactic Acid 2.2 mmol/L (0.5-2.2) 08/25/22 19:54 Calcium 8.0 mg/dL (8.5-10.3) L 08/27/22 05:17 Phosphorus 3.2 mg/dL (2.5-4.6) 08/27/22 05:17 Magnesium 2.2 mg/dL (1.7-2.8) 08/27/22 10:10 Total Bilirubin 0.9 mg/dL (0.2-1.0) 08/26/22 21:49 AST 25 IU/L (10-42) 08/26/22 21:49 ALT 17 IU/L (10-60) 08/26/22 21:49 Alkaline Phosphatase 35 IU/L (42-121) L 08/26/22 21:49 Troponin I High Sens 43.6 ng/L (2.3-19.7) H* 08/27/22 05:17 Total Protein 4.8 g/dL (6.7-8.2) L 08/26/22 21:49 Albumin 2.9 g/dL (3.2-5.5) L 08/26/22 21:49 Globulin 1.9 g/dL (2.1-4.2) L 08/26/22 21:49 Albumin/Globulin Ratio 1.5 (1.0-2.2) 08/26/22 21:49 Lipase 60 U/L (22-51) H 08/25/22 12:11 TSH 2.96 uIU/mL (0.34-5.60) 08/25/22 12:11 Free T4 0.70 ng/dL (0.58-1.64) 08/25/22 12:11 Nasal Adenovirus (PCR) NOT DETECTED 08/25/22 12:50 Nasal B. parapertussis DNA (PCR) NOT DETECTED 08/25/22 12:50 Nasal Coronavir 229E PCR NOT DETECTED 08/25/22 12:50 Nasal Coronavir HKU1 PCR NOT DETECTED 08/25/22 12:50 Nasal Coronavir NL63 PCR NOT DETECTED 08/25/22 12:50 Nasal Coronavir OC43 PCR NOT DETECTED 08/25/22 12:50 Nasal Enterovir/Rhinovir PCR NOT DETECTED 08/25/22 12:50 Nasal Influenza B PCR NOT DETECTED 08/25/22 12:50 Nasal Influenza A PCR NOT DETECTED 08/25/22 12:50 Nasal Parainfluen 1 PCR NOT DETECTED 08/25/22 12:50 Nasal Parainfluen 2 PCR NOT DETECTED 08/25/22 12:50 Nasal Parainfluen 3 PCR NOT DETECTED 08/25/22 12:50 Nasal Parainfluen 4 PCR NOT DETECTED 08/25/22 12:50 Nasal RSV (PCR) NOT DETECTED 08/25/22 12:50 Nasal Screen MRSA (PCR) NEGATIVE (NEGATIVE) 08/25/22 18:40 Nasal B.pertussis DNA PCR NOT DETECTED 08/25/22 12:50 Nasal C.pneumoniae (PCR) NOT DETECTED 08/25/22 12:50 Geo Human Metapneumo PCR NOT DETECTED 08/25/22 12:50 Nasal M.pneumoniae (PCR) NOT DETECTED 08/25/22 12:50 Nasal SARS-CoV-2 (PCR) NOT DETECTED 08/25/22 12:50 Blood Type A POSITIVE 08/25/22 12:11 Antibody Screen NEGATIVE 08/25/22 12:11 Crossmatch IS Only See Detail 08/25/22 12:11 - Procedures Procedures: Procedures COLONOSCOPY (05/28/13) INSERT INDWELLING CATH (05/28/13) URETH STRICTURE RELEASE (05/28/13)
[2022-08-27] MEDS: PRAVASTATIN 40 MG TABLET PO SCH (20:11)
[2022-08-27] MEDS: LATANOPROST 0.005% OPHTH DROPS EACHEYE SCH (20:13)
--- NOTE | 2022-08-27 23:51 | PROVIDER PROGRESS NOTE ---
Hospitalist Cross-cover Note - Cross-Cover Note Cross-Cover Note: I was called by DEJUAN Torres, stating patient Hb is 6.7 chart and EMR reviewed discussed with RN, to notify Dr Connor or Dr Ivan, in the interim have ordered 2 units of PRBC and if any tachycardia or crackles would recommend call back and consider lasix 40 mg ivp x one dose, make patient NPO for now, please inform the day time hospitalist early about drop in Hb and to see patient early in am.
[2022-08-28] MEDS: SODIUM CHLORIDE FLUSH 0.9% 10 ML SYRINGE IVP SCH ×3 (00:54→16:51)
[2022-08-28 06:48] LABS: CALCIUM, IONIZED 1.08 mmol/L (1.15-1.33); VBG PH 7.408 (7.31-7.41)
[2022-08-28] MEDS: LEVOTHYROXINE 100 MCG TABLET PO SCH (06:49)
[2022-08-28 07:03] LABS: PHOSPHORUS 3.4 mg/dL (2.5-4.6)
[2022-08-28] MEDS: PRENATAL VITAMIN TABLET PO SCH (08:33)
[2022-08-28] MEDS: ISOSORBIDE MONONITRATE ER 30 MG TABLET PO SCH (08:33)
[2022-08-28] MEDS: FAMOTIDINE 20 MG TABLET PO SCH (08:33)
[2022-08-28] MEDS: THIAMINE 100 MG TABLET PO SCH (08:33)
[2022-08-28] MEDS: lisinopriL 5 MG TABLET PO SCH (08:34)
[2022-08-28] MEDS: METOPROLOL TARTRATE 25 MG TABLET PO SCH ×3 (08:37→16:48)
[2022-08-28] MEDS: timoloL maleate 0.5% OPHTH DROPS (10ML) EACHEYE SCH (11:27)
--- NOTE | 2022-08-28 11:30 | PROVIDER PROGRESS NOTE ---
Subjective - General Admit Date: 08/25/22 Procedure Date: 08/26/22 Post Op Days: 2 Procedure Performed: Colonoscopy - Review of Systems Wound/Incisions: positive: Other (None.) General: positive: No symptoms. negative: Fever, Weakness HEENT: positive: No symptoms Pulmonary: positive: No symptoms Cardiovascular: positive: No symptoms Gastrointestinal: negative: Nausea, Vomiting, Abdominal pain, Melena, Hematochezia Genitourinary: positive: No symptoms Musculoskeletal: positive: No symptoms Skin: positive: No symptoms Psychiatric: positive: No symptoms All Other Systems: positive: Reviewed and negative Objective - Patient Data Reviewed Vital Signs: Yes Vital Signs: Vital Signs x48h Temp Pulse Resp BP BP BP Pulse Ox 08/28/22 08:37 209/97 H 08/28/22 08:12 36.7 C 59 L 15 156/61 H 96 08/28/22 05:00 36.5 C 60 18 168/90 H 96 08/28/22 03:10 36.5 C 62 16 151/75 H 96 08/28/22 02:54 36.5 C 62 16 139/77 H 95 Weight: Weight 08/26/22 08/27/22 08/28/22 23:59 23:59 23:59 Weight (kg) 87 kg 88 kg 88 kg Intake & Output: Intake and Output Totals x24h 08/26/22 08/27/22 08/28/22 23:59 23:59 23:59 Intake Total 8340.751 3514.083 700 Output Total 4900 3280 2275 Balance 3440.751 234.083 -1575 - Lab Results Lab Results: 08/28/22 06:37 08/27/22 05:17 Other Lab Results: Lab Results x24hrs 08/28/22 08/28/22 08/28/22 Range/Units 06:37 06:37 06:37 Hgb 9.1 L (14.0-18.0) g/dL VBG pH 7.408 (7.31-7.41) Ionized Calcium 1.08 L (1.15-1.33) mmol/L Phosphorus 3.4 (2.5-4.6) mg/dL Magnesium 2.0 (1.7-2.8) mg/dL Blood Type Antibody Screen Crossmatch IS Only 08/27/22 08/27/22 08/25/22 Range/Units 23:10 17:20 12:11 Hgb 6.7 L* 8.5 L (14.0-18.0) g/dL VBG pH (7.31-7.41) Ionized Calcium (1.15-1.33) mmol/L Phosphorus (2.5-4.6) mg/dL Magnesium (1.7-2.8) mg/dL Blood Type A POSITIVE Antibody Screen NEGATIVE Crossmatch IS Only See Detail - Current Medications Current Medications: Current Medications Generic Name Dose Route Start Last Admin Trade Name Freq PRN Reason Stop Dose Admin Famotidine 20 mg 08/26/22 21:00 08/28/22 08:33 Famotidine 20 Mg Tablet PO 20 mg BID DINORAH Administration Isosorbide Mononitrate 30 mg 08/26/22 21:00 08/28/22 08:33 Isosorbide Mononitrate Er 30 Mg Tablet PO 30 mg BID DINORAH Administration Latanoprost 1 drops 08/26/22 21:00 08/27/22 20:13 Latanoprost 0.005% Ophth Drops EACHEYE 1 drops QPM DINORAH Administration Levothyroxine Sodium 100 mcg 08/27/22 07:00 08/28/22 06:49 Levothyroxine 100 Mcg Tablet PO 100 mcg QDAC [facility] Administration Lisinopril 10 mg 08/26/22 21:00 08/28/22 08:34 Lisinopril 5 Mg Tablet PO 10 mg BID DINORAH Administration Metoprolol Tartrate 25 mg 08/26/22 17:07 08/28/22 08:37 Metoprolol Tartrate 25 Mg Tablet PO Not Given TIDWM [facility] Nitroglycerin 0.4 mg 08/26/22 16:43 08/26/22 16:45 Nitroglycerin Sl 0.4 Mg Tablet SL 0.4 mg Q5MIN PRN Administration Chest Pain Ondansetron HCl 4 mg 08/25/22 17:53 08/25/22 19:11 Ondansetron 4 Mg/2 Ml Vial IVP 4 mg Q6HR PRN Administration Nausea / Vomiting Pravastatin Sodium 60 mg 08/26/22 21:00 08/27/22 20:11 Pravastatin 40 Mg Tablet PO 60 mg QPM [facility] Administration Multivit/Folic Acid/Iron 1 tab 08/27/22 09:00 08/28/22 08:33 Vitamin Tablet PO 1 tab DAILY DINORAH Administration Sodium Chloride 10 ml 08/26/22 01:00 08/28/22 00:54 Sodium Chloride Flush 0.9% 10 Ml Syringe IVP 10 ml 0100,0900,1700 DINORAH Administration Sodium Chloride 10 ml 08/25/22 17:53 08/27/22 09:47 Sodium Chloride Flush 0.9% 10 Ml Syringe IVP 10 ml PRN PRN Administration NEEDED PER PROVIDER ORDERS Thiamine HCl 100 mg 08/27/22 09:00 08/28/22 08:33 Thiamine 100 Mg Tablet PO 100 mg DAILY DINORAH Administration Timolol Maleate 1 drops 08/26/22 21:00 08/27/22 20:13 Timolol Maleate 0.5% Ophth Drops (10ml) EACHEYE 1 drops BID DINORAH Administration - Physical Exam Wound/Incisions: positive: Other (None.) General Appearance: positive: No acute distress, Alert Eyes Bilateral: positive: Conjunctivae nml ENT: positive: No signs of dehydration Neck: positive: Trachea midline. negative: Carotid bruit Respiratory: positive: Chest non-tender, No respiratory distress, Breath sounds nml Cardiovascular: positive: Regular rate & rhythm, No murmur Abdomen: positive: Non-tender, Nml bowel sounds Skin: positive: Color nml Extremities: positive: Non-tender, Nml appearance Neurologic/Psychiatric: positive: Oriented x3, Motor nml Impression/Plan - Problem List Problem List: This is an 86-year-old gentleman with: 1. Acute lower GI bleed Per CT, his bleeding appears to be coming from a diverticulum in the proximal sigmoid colon. Generally, bleeding of this nature, resolves spontaneously but now the patient has required 6 units of blood and this is an indication for surgery. This was discussed with the patient. I also discussed the use of transexamic acid to stop and possibly prevent bleeding. We discussed the pros and cons of transexamic acid. This has the potential to cause thrombosis and this is concerning in light of his CAD as well as his PVD (aneurysms). The best and safest approach for this patient would be interventional radiology with coiling of bleeding vessel. This is definitely less risky than surgery and transexamic acid. This was discussed with Dr. Walker who is in agreement. in the best interest of the patient, a concerted effort should be made to transfer him to a facility that has interventional radiology. 2. Anemia 2/2 GI bleed Continue to transfuse for symptoms and persistent bleeding. Patient has now received 6 u PRBCs. 3. 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 The aneurysm of the iliac is more concerning due to size than the aorta. Recommend f/u with vascular surgery as an outpatient. Vascular surgery phone consult in ED also recommended statin (patient has not tolerated well in the past) and ASA (hard no due to active bleeding). 4. Confusion/delirium I have not seen indication of this today but conversations have been had about keeping him active during the day to decrease likelihhod of confusion agitation at night. 5. Hypertension, coronary artery disease, high cholesterol, hypothyroidism, prostate cancer (treated with seeds), glaucoma Management as per primary team I reviewed the plan of care with the patient over 90 minutes today and detailed his disease and treatment options in detail in pictures that I annemarie on the white board. i explained that there are no guarantees with any of the available options and included not doing anything at all in today's conversation. I explained that the best option for him (least risk with best potential for a good outcome) would be treatment at a hospital with interventional radiology. Should he have uncontrollable bleeding then I am standing by to operate and remove his left colon. Plan would be for anastamosis without need for a colostomy (but again no guarantee). I gave him my card (at his request) and explained that he should contact me with any questions or concerns. I will continue to follow closely. CPT 87028
--- NOTE | 2022-08-28 17:48 | Discharge Plan ---
Discharge Plan Problem Reviewed?: Yes Disposition: 02 Transfer Acute Care Hosp Condition: Serious No Smoking: If you smoke, Please STOP! Call for help. Follow-up with: RAJESH IRWIN [Primary Care Provider] -
--- NOTE | 2022-08-28 17:49 | DISCHARGE SUMMARY ---
Discharge Summary Discharge Date: 08/28/22 Discharging Provider: Dr Melly Walker Condition at Discharge: Serious Discharge Disposition: 02 Transfer Acute Care Hosp - ALLERGIES Allergies/Adverse Reactions: Allergies Allergy/AdvReac Type Severity Reaction Status Date / Time simvastatin AdvReac Intermediate see below Verified 08/25/22 12:08 amlodipine AdvReac Mild fatigue Verified 08/25/22 12:08 - MEDICATIONS Home Medications: Ambulatory Orders Medication Instructions Recorded Confirmed Pravastatin Sodium 60 mg PO DAILY 05/25/13 08/26/22 Isosorbide Mononitrate [Isosorbide 60 mg PO DAILY 08/26/22 08/26/22 Mononitrate ER] Latanoprost/Pf [Latanoprost 0.005% 1 drops EACHEYE QPM 08/26/22 08/26/22 Eye Drop] Levothyroxine [Synthroid] 100 mcg PO QDAC 08/26/22 08/26/22 Metoprolol Tartrate [Lopressor] 25 mg PO TID 08/26/22 08/26/22 Timolol 0.5% Ophth Drops [Timoptic 1 drops EACHEYE BID 08/26/22 08/26/22 0.5% Ophth Drops] lisinopriL [Lisinopril] 10 mg PO BID 08/26/22 08/26/22 - LABS Result Diagrams: 08/28/22 17:10 08/27/22 05:17
--- NOTE | 2022-08-28 18:02 | DISCHARGE SUMMARY ---
Discharge Summary Admit Date: 08/25/22 Discharge Date: 08/28/22 Discharging Provider: Dr Melly Walker Primary Care Provider: Dr Kalyan Boo Code Status: Attempt Resuscitation Condition at Discharge: Serious Discharge Disposition: 02 Transfer Acute Care Hosp - [facility] History of Present Illness: This is an 86 y/o male with a Hx of CAD and prostate CA with seed implants. He was at the bank today, felt lightheaded, used their bathroom where he had a red bowel movement. He then got someone there to bring him to the ER. He did describe 2 days of red BMs and red seen in his underwear. He denies any associated abdominal pain or cramps, no nausea, vomiting, or change in appetite. He denies chest pain or shortness of breath. His first BP was 80/40. When laid supine his blood pressure improved to 130/60. He was not tachycardic. Labs came back showing hemoglobin of 8.7, lactic acid of 3 and mildly elevated creatinine which is at his baseline. He got 2 L of fluid bolus ordered and he underwent a CTA of the abdomen/pelvis. This showed bleeding from a sigmoid colon diverticulum. Also seen was a 3.6 cm AAA with moderate mural thrombus. There was also occlusion of the right renal artery and atrophy of the right kidney, aneurysmal dilatation of the left common iliac artery, and mild celiac origin stenosis. The ED provider asked for consultation from General Surgery regarding the lower GI bleed. The ED provider then reached me on the [facility] pitalist team and we discussed admission. I advised that the ED provider speak to Vascular Surgery first to discuss management of a clot in the aorta at a time when the patient has active bleeding, and whether we could manage that [facility]. The vascular specialist that called back and spoke to our ED provider said that mural clots are very common in AAA and that when stab le the patient should be on statin plus aspirin and eventually to be seen by Vascular Surgery. These findings were discussed by our ED provider with the patient, who told the ED provider that he has never been told of having AAA or other vascular disease. The next hemoglobin was then performed in the ED and has come down to 8.7. Also repeat blood pressures are now in the 90/60 range. I discussed this patient's management next with the General crop consultant Dr. Connor. The patient is being admitted to the ICU in critical condition. We discussed his CODE STATUS and he wants to be a Full Code. - CONSULTS | PROCEDURES Consultations: Dr Connor, Dr Mitchell Procedures: Colonoscopy - HOSPITAL COURSE Hospital Course: (1) Diverticular hemorrhage Bleeding from the proximal sigmoid from a presumed diverticulum was seen on CTA done at admission 08/25. His aspirin was stopped. He was put on clear liquid diet then had a colonoscopy 08/26 by Gen Surgeon, Dr. Connor. She found no active bleeding, but there were clots throughout his colon. He then passed clots for a day more. His diet was clear liquids and Hgb remained stable for a day, until he again started to have liquid blood from his bowel on the evening of 08/27. He was seen in consult by Gen. Surgeon, Dr Mitchell on 08/28, who advised transfer for IR to perform embolization vs bowel surgey here. The patient chose to be transferred. I reached out to [facility] in [place], where he was graciously accepted in transfer by the Hospitalist, after I spoke to jairo on- call [employer], General Surgeon and Interventional Radiologist. (2) Hypotension due to blood loss His blood pressure was soft" at about 100-110 systolic for 2 days. When his BP improved, he was allowed to get OOB in chair and use the bathroom, but he remained in the ICU. (3) GI blood loss anemia His hemoglobin at presentation was 10 but quickly dropped to 8.7 then 7 and he continued to have BRBPR. He was transfused 3 units of blood over the first 2 days. When his hemoglobin again dropped to 6.7 later, he was eventually ordered for 3 more units of blood transfused. At the time of transfer, Hgb was 10.5. (4) Chest pain The patient complained of his typical chest pressure across his precordium when his blood pressure was briefly 200 systolic, while getting blood. An EKG was done during chest pain and SL NTG was ordered to use. BP improved to 144 syst and CP subsided after 1 SL NTG. The EKG showed new biphasic T waves in lateral leads. His hs-troponins showed a minor increase: 5, 17, 32, 43. We resumed his cardiac meds, with hold parameters in case of low BP again. We did not restart his daily aspirin. No Echo could be done since there was no electrocardiograph technician available here that day. (5) CAD He had 2 stents placed in 2002, these failed and he needed CABG done in 2003. He states that no stress tests have been done since the CABG. He does get occasional chest pain which improves with rest, as he tries not to use SL NTG. When the patient became hypertensive, he did have 2 episodes of chest pain while here. These responded to 1 SL NTG. Troponins were cycled and were negative. Since he has not had any stress testing since 2003, he needs Cardiology eval uation and management. (6) AAA (abdominal aortic aneurysm) As per CTA result. He said he has never been told he has this. Per vascular surgery discussion with our ED provider at admission, no special management was advised for the mural thrombus seen on CTA, except to take a daily aspirin when it is safe to be started on aspirin, and take a statin medication for overall PVD treatment. We restarted his statin. He will need Vascular Surgery close follow up as an outpatient. (7) Thrombus of aorta (I74.10) As per the CTA abdomen. This was discussed with the accepting Hospitalist, [employer] Sm[employer] Pipe, General Surgeon and Interventional Radiologist before he was transferred to [facility]. (8) PVD (peripheral vascular disease) Iliac artery and renal artery disease were also seen on CTA abdomen. These will need follow-up with a Vascular Surgeon and possibly Nephrology, going forward. (9) CKD (chronic kidney disease) Conclusion/Plan: The atrophic kidney likely represents the reason for his CKD. Creatinine was stable compared to his prior blood levels (10) Hypothyroidism TSH was in good range. We continued his usual Synthroid dose (11) Lactic acidosis L.A. was elevated at presentation, likely relate to tissue hypoperfusion from his hypotension. The next L.A. several hours later dropped to 2.2. - ALLERGIES Allergies/Adverse Reactions: Allergies Allergy/AdvReac Type Severity Reaction Status Date / Time simvastatin AdvReac Intermediate see below Verified 08/25/22 12:08 amlodipine AdvReac Mild fatigue Verified 08/25/22 12:08 - MEDICATIONS Home Medications: Ambulatory Orders Medication Instructions Recorded Confirmed Pravastatin Sodium 60 mg PO DAILY 05/25/13 08/26/22 Isosorbide Mononitrate [Isosorbide 60 mg PO DAILY 08/26/22 08/26/22 Mononitrate ER] Latanoprost/Pf [Latanoprost 0.005% 1 drops EACHEYE QPM 08/26/22 08/26/22 Eye Drop] Levothyroxine [Synthroid] 100 mcg PO QDAC 08/26/22 08/26/22 Metoprolol Tartrate [Lopressor] 25 mg PO TID 08/26/22 08/26/22 Timolol 0.5% Ophth Drops [Timoptic 1 drops EACHEYE BID 08/26/22 08/26/22 0.5% Ophth Drops] lisinopriL [Lisinopril] 10 mg PO BID 08/26/22 08/26/22 - PHYSICAL EXAM AT DISCHARGE General Appearance: positive: No acute distress, Alert, Other (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 baldness) Eyes Bilateral: positive: Normal inspection, EOMI ENT: positive: ENT inspection nml, Other (Pale) Neck: positive: Nml inspection, No JVD Respiratory: positive: No respiratory distress, Breath sounds nml Cardiovascular: positive: Regular rate & rhythm, No murmur Abdomen: positive: Non-tender, Nml bowel sounds, No distention Skin: positive: Warm, Dry, Pallor Extremities: positive: Non-tender, No pedal edema Neurologic/Psychiatric: positive: Oriented x3, Motor nml - LABS Result Diagrams: 08/28/22 17:10 08/27/22 05:17 - DIAGNOSTIC IMAGING Diagnostic Imaging Results: Final report reviewed - FOLLOW UP Follow Up: Will be determined after his hospitalization at [facility]. - TIME SPENT Time Spent in Discharge (Minutes): 65
[2022-08-28 18:18] VITALS: BP 110/70
== END 2022-08-28 18:20 | disposition short-term general hospital (02) | DRG 378 ==
LOC: ED 11:51 → ICU 14:53
PROVIDERS: ADMIT Internal Medicine; ATTEND Internal Medicine
PROC: 30233N1 Transfusion of Nonautologous Red Blood Cells into Peripheral Vein, Percutaneous Approach (ICD-10-PCS; 2022-08-26)
PROC: 0DJD8ZZ Inspection of Lower Intestinal Tract, Via Natural or Artificial Opening Endoscopic (ICD-10-PCS; principal; 2022-08-26 07:00)
DX: K57.31 Diverticulosis of large intestine without perforation or abscess with bleeding (principal); D62 Acute posthemorrhagic anemia; N28.0 Ischemia and infarction of kidney; E87.20 Acidosis, unspecified; I74.10 Embolism and thrombosis of unspecified parts of aorta; Z20.822 Contact with and (suspected) exposure to COVID-19; I95.9 Hypotension, unspecified; I95.89 Other hypotension; I25.10 Atherosclerotic heart disease of native coronary artery without angina pectoris; E78.00 Pure hypercholesterolemia, unspecified; E03.9 Hypothyroidism, unspecified; H40.9 Unspecified glaucoma; Z85.46 Personal history of malignant neoplasm of prostate; Z92.3 Personal history of irradiation; I71.40 Abdominal aortic aneurysm, without rupture, unspecified; N40.0 Benign prostatic hyperplasia without lower urinary tract symptoms; Z95.1 Presence of aortocoronary bypass graft; Z95.5 Presence of coronary angioplasty implant and graft; I73.9 Peripheral vascular disease, unspecified; I12.9 Hypertensive chronic kidney disease with stage 1 through stage 4 chronic kidney disease, or unspecified chronic kidney disease; N18.9 Chronic kidney disease, unspecified; R07.89 Other chest pain; R41.0 Disorientation, unspecified; I72.3 Aneurysm of iliac artery
CPT/HCPCS: 36415; 71045; 74174; 80048; 80053; 82330; 83605; 83690; 83735; 84100; 84439; 84443; 84484; 85014; 85018; 85025; 85610; 86850; 86900; 86901; 86920; 87150; 87633; 93005; 96360; 96361; 99285; A9270; P9016; Q9967; 85027

== ENCOUNTER 2023-02-16 12:07 | Outpatient (CLI) | payer MEDICARE | END 2023-02-16 23:59 | disposition critical access hospital (66) | LOC: EMS 12:07 | DX: R41.0 Disorientation, unspecified (principal); R26.81 Unsteadiness on feet; R30.0 Dysuria; R00.0 Tachycardia, unspecified | CPT/HCPCS: A0425; A0429 ==

== ENCOUNTER 2023-02-16 12:39 | Observation (INO) | payer MEDICARE ==
[2023-02-16] MEDS ORDERED: SODIUM CHLORIDE 0.9% 1,000 ML IV STA (12:56)
--- NOTE | 2023-02-16 13:01 | ED Physician Documentation ---
History of Present Illness - Stated complaint Stated Complaint: MALE - Chief complaint Chief Complaint: Abd Pain - Additonal information Additional information: 87-year-old male presents the emergency department for generalized weakness some confusion and painful urination. He states to me that for about a week he has been having pain with urination. Today he has felt very weak and feels body fuzzy and lightheaded. Pt's states that he has been confused Patient has past medical history most significant for coronary artery disease and prostate cancer with seed implants. This gentleman was admitted to the hospital in August 2022 with a diverticular GI bleed. At that time he was also found to have a AAA measuring about 3.6 cm. While hospitalized in August for his diverticular hemorrhage he underwent a colonoscopy that showed no active bleeding but there were clots throughout his colon. He continued to have GI bleeding when he was seen by Dr. Rahman's office on August 28 who recommended the patient be transferred for IR embolization. Subsequently he was transferred to [facility] in [place] Today the patient denies any chest pain or shortness of air. in the rrom he is alert and oriented. No focal deficits. He is a febrile. HTN 180/94. sinus rhythm on the monitor in the high 90s. Review of Systems Constitutional: denies: Fever Cardiac: reports: Reviewed and negative Respiratory: reports: Reviewed and negative GI: denies: Abdominal Pain : reports: Dysuria Skin: reports: Reviewed and negative Musculoskeletal: reports: Reviewed and negative PD PAST MEDICAL HISTORY - Past Medical History Cardiovascular: Hypertension, High cholesterol, Coronary artery disease Respiratory: None Neuro: None Endocrine/Autoimmune: HyPOthyroidism GI: Hemorrhoids : Benign prostate hypertrophy, Renal insuffiency, Kidney stones HEENT: Glaucoma Psych: None Musculoskeletal: Gout Derm: Rosacea - Past Surgical History General: Cholecystectomy, 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) Cardiovascular: CABG, Coronary stent HEENT: Cataracts - Present Medications Home Medications: Ambulatory Orders Medication Instructions Recorded Confirmed Pravastatin Sodium 60 mg PO DAILY 05/25/13 08/26/22 Isosorbide Mononitrate [Isosorbide 60 mg PO DAILY 08/26/22 08/26/22 Mononitrate ER] Latanoprost/Pf [Latanoprost 0.005% 1 drops EACHEYE QPM 08/26/22 08/26/22 Eye Drop] Levothyroxine [Synthroid] 100 mcg PO QDAC 08/26/22 08/26/22 Metoprolol Tartrate [Lopressor] 25 mg PO TID 08/26/22 08/26/22 Timolol 0.5% Ophth Drops [Timoptic 1 drops EACHEYE BID 08/26/22 08/26/22 0.5% Ophth Drops] lisinopriL [Lisinopril] 10 mg PO BID 08/26/22 08/26/22 - Allergies Allergies/Adverse Reactions: Allergies Allergy/AdvReac Type Severity Reaction Status Date / Time simvastatin AdvReac Intermediate see below Verified 08/25/22 12:08 amlodipine AdvReac Mild fatigue Verified 08/25/22 12:08 - Social History Does the pt smoke?: No Smoking Status: Never smoker Does the pt drink ETOH?: Yes ETOH Use: Beer Does the pt have substance abuse?: Yes Substance Use and Type: Marijuana - POLST Patient has POLST: No PD ED PE NORMAL - General General: Alert and oriented X 3, No acute distress, Well developed/nourished - HEENT HEENT: Atraumatic - Cardiac Cardiac: RRR, No murmur - Respiratory Respiratory: No respiratory distress, Clear bilaterally - Abdomen Abdomen: Normal bowel sounds, Soft, Non tender - Derm Derm: Normal color, Warm and dry, No rash - Extremities Extremities: No deformity - Neuro Neuro: Alert and oriented X 3, mass spec 2-12 intact Eye Opening: Spontaneous Motor: Obeys Commands Verbal: Oriented GCS Score: 15 Results - Vitals Vitals: Vital Signs - 24 hr 02/16/23 02/16/23 12:41 14:56 Temperature 37.7 C Heart Rate 102 H 68 Respiratory 18 20 Rate Blood Pressure 180/94 H 196/96 H O2 Saturation 96 98 Oxygen O2 Source Room air - EKG (time done) 1317 EKG releavant findings:: EKG personally interpreted by author of this note. Relevant findings are: Rate: Rate (enter#) (98) Rhythm: NSR [place]: Normal, Anterior hemiblock Intervals: No: Prolonged QT QRS: LVH Ischemia: Non specific changes Compare to prior EKG: Unchanged from prior EKG Computer interpretation: Agree with computer - Labs Labs: Laboratory Tests 02/16/23 02/16/23 02/16/23 13:06 13:07 13:07 WBC 10.2 RBC 4.20 L Hgb 12.9 L Hct 39.2 L MCV 93.3 MCH 30.7 MCHC 32.9 RDW 14.5 Plt Count 134 MPV 9.6 Neut # (Auto) 9.1 H Lymph # (Auto) 0.4 L Millard # (Auto) 0.6 Eos # (Auto) 0.0 Baso # (Auto) 0.0 Absolute Nucleated RBC 0.00 Nucleated RBC % 0.0 Sodium 136 Potassium 4.2 Chloride 102 Carbon Dioxide 25 Anion Gap 9.0 BUN 36 H Creatinine 1.6 H Estimated GFR (MDRD) 41 L Glucose 117 H Lactic Acid Calcium 9.9 Total Bilirubin 1.3 H AST 19 ALT 14 Alkaline Phosphatase 72 Total Protein 7.9 Albumin 4.6 Globulin 3.3 Albumin/Globulin Ratio 1.4 Urine Color YELLOW Urine Clarity SL. CLOUDY Urine pH 5.0 Ur Specific [place] 1.015 Urine Protein 30 H Urine Glucose (UA) NEGATIVE Urine Ketones NEGATIVE Urine Occult Blood LARGE H Urine Nitrite POSITIVE H Urine Bilirubin NEGATIVE Urine Urobilinogen 0.2 (NORMAL) Ur Leukocyte Esterase MODERATE H Urine RBC TNTC H Urine WBC >25 H Ur Squamous Epith Cells NONE SEEN Urine Bacteria Moderate H Urine Culture Comments INDICATED 02/16/23 13:07 WBC RBC Hgb Hct MCV MCH MCHC RDW Plt Count MPV Neut # (Auto) Lymph # (Auto) Millard # (Auto) Eos # (Auto) Baso # (Auto) Absolute Nucleated RBC Nucleated RBC % Sodium Potassium Chloride Carbon Dioxide Anion Gap BUN Creatinine Estimated GFR (MDRD) Glucose Lactic Acid 1.2 Calcium Total Bilirubin AST ALT Alkaline Phosphatase Total Protein Albumin Globulin Albumin/Globulin Ratio Urine Color Urine Clarity Urine pH Ur Specific [place] Urine Protein Urine Glucose (UA) Urine Ketones Urine Occult Blood Urine Nitrite Urine Bilirubin Urine Urobilinogen Ur Leukocyte Esterase Urine RBC Urine WBC Ur Squamous Epith Cells Urine Bacteria Urine Culture Comments - Rads (name of study) CT head Relevant Findings:: Final report received (Age-appropriate volume loss and small vessel ischemic change. No acute intracranial abnormality.) PD Medical Decision Making - ED course Complexity details: reviewed results, re-evaluated patient, considered differential, d/w patient, d/w family ED course: 87-year-old male was brought to the emergency department for evaluation of confusion at home, dysuria for 1 week and weakness this AM. Historically this patient is ambulatory without assistance in fact walking to the post office each day. On presentation he is alert and states that he feels just foggy and lightheaded though he does not have any focal deficits. He did have some fairly significant supra bladder discomfort on abdominal exam. I did obtain CBC, electrolytes, urinalysis and blood cultures per my interpretation he does have a hemoglobin of 12.2 mildly low. No leukocytosis. His electrolytes show some mild prerenal azotemia with a BUN of 36 and a creatinine of 1.6. His urinalysis is frankly consistent with infection. Blood cultures are pending. I did obtain a CT of the head that showed no acute intracranial findings and a CT of the abdomen showed likely cystitis as well as thickening of the left renal pelvis which could be concerning for pyelonephritis. He has chronic right renal arterial occlusion and a stone in the right renal pelvis without hydronephrosis. He does have a known stable abdominal aneurysm measuring 2.7 cm. I did administer the patient a liter of IV fluids as well as gave him 1 g of ceftriaxone IV. However the patient is unable to get out of bed without maximum support and assistance which is certainly new for him. With his confusion, mildly elevated BUN and creatinine I suspect he has a mild metabolic encephalopathy as well as pyelonephritis resulting in significant weakness. I spoken with the patient and his and they agree to come into the hospital for further evaluation and management of his infection. I spoke with Dr. Lowe who will initially admit the patient under an observation status. Departure - Departure Disposition: ED Place in Observation Clinical Impression: Pyelonephritis, JAZ (acute kidney injury), Generalized weakness Condition: Serious Forms: PCP List
[2023-02-16 13:16] LABS: BASOPHILS % (AUTO) 0.3 %; HCT - HEMATOCRIT 39.2 % (42.0-52.0); HGB - HEMOGLOBIN 12.9 g/dL (14.0-18.0); LYMPHOCYTES # (AUTO) 0.4 10^3/uL (1.5-3.5); LYMPHOCYTES % (AUTO) 3.7 %; MEAN CORPUSCULAR HEMOGLOBIN 30.7 pg (27.0-31.0); MEAN CORPUSCULAR HGB CONC 32.9 g/dL (32.0-36.0); MEAN CORPUSCULAR VOLUME 93.3 fL (80.0-94.0); MEAN PLATELET VOLUME 9.6 fL (7.4-11.4); MONOCYTES # (AUTO) 0.6 10^3/uL (0.0-1.0); NEUTROPHILS # (AUTO) 9.1 10^3/uL (1.5-6.6); NEUTROPHILS % (AUTO) 89.5 %; PLT - PLATELET COUNT 134 10^3/uL (130-450); RED CELL DISTRIBUTION WIDTH 14.5 % (12.0-15.0); WHITE BLOOD COUNT 10.2 x10^3/uL (4.8-10.8)
[2023-02-16 13:19] LABS: BILIRUBIN,URINE NEGATIVE (NEGATIVE); GLUCOSE, URINE (UA) NEGATIVE (NEGATIVE); KETONES,URINE (UA) NEGATIVE (NEGATIVE); LEUKOCYTE ESTERASE, URINE MODERATE (NEGATIVE); NITRITE,URINE POSITIVE (NEGATIVE); OCCULT BLOOD,URINE LARGE (NEGATIVE); PROTEIN,URINE 30 mg/dL (NEGATIVE); UROBILINOGEN,URINE 0.2 (NORMAL) E.U./dL (NORMAL)
[2023-02-16 13:21] LABS: CLARITY,URINE SL. CLOUDY (CLEAR)
[2023-02-16 13:26] LABS: WBC,URINE >25 /HPF (0-3)
[2023-02-16 13:27] LABS: BACTERIA,URINE Moderate /HPF (None Seen); RBC,URINE TNTC /HPF (0-5); SQUAMOUS EPITHELIAL CELL,UR NONE SEEN (<= Few)
[2023-02-16] MEDS ORDERED: cefTRIAXone 1 GM in SODIUM CHLORIDE 0.9% MINIBAG 100 ML IV STA (13:29)
[2023-02-16 13:33] LABS: ALBUMIN 4.6 g/dL (3.2-5.5); ALBUMIN/GLOBULIN RATIO 1.4 (1.0-2.2); BILIRUBIN,TOTAL 1.3 mg/dL (0.2-1.0); CALCIUM 9.9 mg/dL (8.5-10.3); CREATININE 1.6 mg/dL (0.6-1.3); POTASSIUM 4.2 mmol/L (3.5-4.5); TOTAL PROTEIN 7.9 g/dL (6.4-8.9)
--- NOTE | 2023-02-16 14:15 | XRAY Report ---
PROCEDURE: Chest 1 View X-Ray INDICATIONS: Sepsis TECHNIQUE: One view of the chest was acquired. COMPARISON: Chest x-ray 08/25/2022 FINDINGS: Surgical changes and devices: Sternal wires.. Lungs and pleura: No pleural effusions or pneumothorax. Lungs are clear. Mediastinum: Mediastinal contours appear normal. Heart size is enlarged. Bones and chest wall: No suspicious bony lesions. Overlying soft tissues appear unremarkable. IMPRESSION: No acute cardiopulmonary process. Reviewed by: Nadya Eldridge MD on 02/16/2023 2:14 PM PDT Approved by: Nadya Eldridge MD on 02/16/2023 2:14 PM PDT Station ID: [id number]
[2023-02-16] MEDS ORDERED: iohexoL-300 100 ML VIAL IVP ONE (14:54)
--- NOTE | 2023-02-16 15:00 | CT Report ---
PROCEDURE: HEAD WO INDICATIONS: confusion TECHNIQUE: Noncontrast 4.5 mm thick angled axial sections acquired from the foramen magnum to the vertex. For r adiation dose reduction, the following was used: automated exposure control, adjustment of mA and/or kV according to patient size. COMPARISON: None. FINDINGS: Image quality: Excellent. CSF spaces: Basal cisterns are patent. No extra-axial fluid collections. Ventricles are normal in size and shape. Brain: No midline shift. No intracranial masses or hemorrhage. Kwong-white matter interface is norm al. Age-related volume loss. Relatively mild small vessel ischemic change. Skull and face: Calvarium and visualized facial bones are intact, without suspicious lesions. Sinuses: Visualized sinuses and mastoids are clear. IMPRESSION: Age-appropriate volume loss and small vessel ischemic change. No acute intracranial abnormality. Reviewed by: Vincenzo Mark MD on 02/16/2023 2:59 PM PDT Approved by: Vincenzo Mark MD on 02/16/2023 2:59 PM PDT Station ID: [id number]
--- NOTE | 2023-02-16 15:12 | CT Report ---
PROCEDURE: ABDOMEN/PELVIS W INDICATIONS: UTI; ? pyelo CONTRAST: 100ml Omni 300 TECHNIQUE: After the administration of intravenous contrast, 5 mm thick sections acquired from the diaphragms to the symphysis. 5 mm thick coronal and sagittal reformats were acquired. For radiation dose reducti on, the following was used: automated exposure control, adjustment of mA and/or kV according to elidia ent size. COMPARISON: CT angiogram of the abdomen and pelvis dated 08/25/2022 FINDINGS: Image quality: Excellent. Lung bases and heart: Severe coronary artery calcifications.. Liver: No solid mass. Gallbladder and biliary tree: Surgically absent Spleen: No splenomegaly. Pancreas: No pancreatic ductal dilation. Adrenals: No adrenal nodule. Kidneys and ureters: Small shrunken right kidney with proximal chronic long-standing renal artery occ lusion. Migration of a right middle pole calculus into the right renal pelvis. This stone measures 7 mm in maximum diameter and has a Hounsfield measurement of 1193. No hydronephrosis on the right. No l eft renal stone or hydronephrosis. There is thickening and enhancement of the wall of the left renal pelvis, raising the question of collecting system infection. Stable 3.7 cm abdominal aortic aneurysm with moderate thrombus. Stable aneurysmal dilatation of the left common iliac artery, measuring 2.7 c m. Bowel and peritoneum: No bowel distension. No pathologic free fluid. Lymph nodes: No central or retroperitoneal adenopathy. Vessels: No infrarenal aortic aneurysm. PELVIS Reproductive organs: Unremarkable. Bladder: Marked thickening of the bladder wall consistent with cystitis. This is significantly progre ssed since the previous study. Prostate implant seeds. Normal caliber prostate. Pelvic lymph nodes: No pelvic adenopathy by size criteria. Bones: No aggressive osseous abnormality. Other: No significant ventral or inguinal hernia. IMPRESSION: 1. Impressive changes consistent with cystitis/likely acute bladder infection. 2. Wall enhancement and thickening of the left renal pelvis is consistent with collecting system infe ction or inflammation. 3. Chronic right renal artery occlusion with significant atrophy of the right kidney. 4. A previous right calyceal stone has migrated into the right renal pelvis. There is no resultant hy dronephrosis. 5. Remote cholecystectomy. 6. Severe coronary artery calcifications. Reviewed by: Vincenzo Mark MD on 02/16/2023 3:10 PM PDT Approved by: Vincenzo Mark MD on 02/16/2023 3:10 PM PDT Station ID: [id number]
[2023-02-16] MEDS ORDERED: SODIUM CHLORIDE FLUSH 0.9% 10 ML SYRINGE IVP PRN (15:30)
[2023-02-16] MEDS ORDERED: ACETAMINOPHEN 325 MG TABLET PO PRN (15:34)
[2023-02-16] MEDS ORDERED: ONDANSETRON ODT 4 MG TABLET TL PRN (15:34)
[2023-02-16] MEDS ORDERED: ONDANSETRON 4 MG/2 ML VIAL IVP PRN (15:34)
[2023-02-16] MEDS ORDERED: oxyCODONE 5 MG TABLET PO PRN (15:34)
--- NOTE | 2023-02-16 15:37 | HISTORY & PHYSICAL EXAMINATION ---
Chief Complaint - Chief Complaint Chief Complaint: Severe weakness associated with urgency, frequency, And inability to urinat History of Present Illness - Admitted From Admitted From:: Home via EMS - History Obtained From Records Reviewed: [facility] History obtained from: [facility] Exam Limitations: tired and vague - History of Present Illness HPI Comment/Other: The gentleman is an 87-year-old male who still lives in his own home with his . He was brought in by ambulance because of increasing dysuria, urgency, frequency and hematuria since February 11. He has a previous history of prostate seed implants for prostate cancer. He has also had a TURP for a large prostate. The symptoms have been gradually progressive over several weeks but became increasingly worse and more severe on Tuesday. 2 months ago he said he started with just plain urinary incontinence. Out of nowhere he would lose control of his urine. That was a new problem for him. He felt like, after his last treatment, his urination had gone to normal. He control his urine, stream is okay, and nocturia was only once a night. Then the incontinence started. Then the urinary retention started. And all of this progressed to just bladder spasms and pain. He does have an appointment with urology next week. He used to see urology at [facility], but feels that this is much more convenient to stay on the [place] and stay local. Today, however, his weakness was so severe that he could not get out of bed and his called an ambulance. She describes him as confused. Not waking up easily and she is very alarmed. On review of systems he tells me that he has some hearing problems. Slight cataracts. But no problems with eating, swallowing. He has no coughing, wheezing. He has almost daily chest pain that last a few seconds. No rhyme or reason to it. Not necessarily associated with rest or exertion. He has had that chest pain that goes away on its own no matter what he does since he has had his heart attack. There has been no increasing orthopnea or edema with this. No palpitations. He denies any change in appetite until the last few days. He just does not want to eat anything. He is so tired. His bowel movement is irregular. Maybe once or twice a week but it is a normal bowel movement. No blackness or tarriness to it. Urination was normal until 2 months ago. Joints are bothered at the knees and the sides of his feet. Hips and back are okay. He has been doing his exercises on the floor and doing some weight training to make his needs better. There are noes new skin lesions. He denies depression, suicidal ideation, hallucinations. He does not feel that he has dementia. Up until this last few days, he felt like he was "firing in all cylinders". But ever since he has gotten sick with this urine problem he feels like he just cannot think clearly, and he is foggy. He denies any history of seizures, unconsciousness, gait ataxia. 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 Temperature was 37.7. Heart rate 102. Blood pressure 180/94. Respirations 18. 96% on room air. He is 5 foot 8 inches tall, and weighs 86.1 kg. He denies chest pain, shortness of breath. He is alert and oriented. No focal deficits. His abdomen had normal bowel sounds, was soft, nontender. No edema. His white cell count was 10.2. He had a previous GI bleed with diverticular bleeding in the last few weeks which is treated with a coil. Hemoglobin was quite low with that admission and is now 12.9. CMP showed a BUN of 36. With his August admission he was 23. Creatinine is 1.6 with a baseline of 1.3. So he does have acute on chronic renal insufficiency that is mild. GFR is 41 today. Lactic acid is 1.2. Urinalysis is cloudy, with proteinuria, hematuria, positive nitrates, moderate leukocyte Estrace, too numerous to count red cells, greater than 25 white cells, moderate bacteria and no squamous epithelial cells are seen. So he does have a significant UTI. After discussion with the ER provider, this patient does meet criteria for at least observation status. He has generalized weakness due to UTI. I feel that he has an infection with a high risk for rapid progression if we do not treat this and nip this in the bud. He has altered mental status with his confusion, and acute on chronic renal failure. 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 He never smoked. He drinks 1 alcoholic beverage 5 days out of the week. - Substance History Use: Uses substance without health or social issues: Alcohol - POLST Patient has POLST: No Meds/Allgy - Home Medications Home Medications: Ambulatory Orders Medication Instructions Recorded Confirmed Pravastatin Sodium 60 mg PO DAILY 05/25/13 02/16/23 Isosorbide Mononitrate [Isosorbide 60 mg PO DAILY 08/26/22 02/16/23 Mononitrate ER] Latanoprost/Pf [Latanoprost 0.005% 1 drops EACHEYE QPM 08/26/22 02/16/23 Eye Drop] Levothyroxine [Synthroid] 100 mcg PO QDAC 08/26/22 02/16/23 Metoprolol Tartrate [Lopressor] 25 mg PO TID 08/26/22 02/16/23 Timolol 0.5% Ophth Drops [Timoptic 1 drops EACHEYE BID 08/26/22 02/16/23 0.5% Ophth Drops] lisinopriL [Lisinopril] 10 mg PO BID 08/26/22 02/16/23 Acetaminophen [Aphen] 3.25 tab PO DAILY PRN 02/16/23 02/16/23 Ascorbic Acid [Vitamin C] 1 tab PO QID 02/16/23 02/16/23 Aspirin EC [Ecotrin] 2 tab PO DAILY 02/16/23 02/16/23 Cyanocobalamin (Vitamin B-12) 1 tab PO DAILY 02/16/23 02/16/23 [Vitamin B-12 (1000 mcg sublingual)] Ubidecarenone [Co Q-10] 3 cap PO DAILY 02/16/23 02/16/23 Vitamin B Complex 1 tab PO DAILY 02/16/23 02/16/23 - Allergies Allergies/Adverse Reactions: Allergies Allergy/AdvReac Type Severity Reaction Status Date / Time simvastatin AdvReac Intermediate see below Verified 08/25/22 12:08 amlodipine AdvReac Mild fatigue Verified 08/25/22 12:08 Review of Systems - All Other Systems All Other Systems: reports: Reviewed and negative, Other (Review of systems documented in history of present illness) Prior Level of Functionality: Independent with activities of daily living, still drives Exam - Vital Signs Reviewed Vital Signs: Yes Vital Signs: Vital Signs x48h Temp Pulse Resp BP Pulse Ox 02/16/23 14:56 68 20 196/96 H 98 02/16/23 12:41 37.7 C 102 H 18 180/94 H 96 - Physical Exam General Appearance: positive: No acute distress, Other (Slightly lethargic, slow-moving, slow responding elderly gentleman. Sometimes forgetting dates and episodes. Tells me he just feels "bad" and that is why he is not quick on the uptake) Eyes Bilateral: positive: PERRL, EOMI ENT: positive: No signs of dehydration Neck: positive: No JVD. negative: Stiff neck Respiratory: positive: No respiratory distress. negative: Wheezes, Rales, Rhonchi Cardiovascular: positive: Regular rate & rhythm Peripheral Pulses: positive: 1+ Abdomen: positive: No organomegaly, Nml bowel sounds, No distention, Tenderness (Over the suprapubic area. There is grimacing. After I remove my hands from p alpation he says that his bladder is spasming. During my exam he has an intense urge to urinate. Postvoid residual (very small amount in the urinal) is over 300 cc), Other (Nursing reports multiple attempts to urinate during the short time he has been on MedSurg.) Skin: positive: Warm, Dry Extremities: positive: Full ROM, No pedal edema Neurologic/Psychiatric: positive: Oriented x3, CN's nml (2-12) (Except for mild deafness), Motor nml Conclusion/Plan - Problem List (1) Generalized weakness Conclusion/Plan: This is an elderly gentleman who is usually ambulatory without assist in his own home. However he now has a UTI with possible pyelonephritis. He has now deteriorated to the point that he can even get up to stand. He was brought into the hospital by his because of the weakness. He has been found to have a UTI with mild acute kidney injury, stage II, and in spite of antibiotics and IV fluids is still too weak to get up and walk. He has a possibility of progressing to severe symptoms or high risk for falls because of his current status. As such I am placing him in observation status to see if an overnight stay with IV fluids, IV antibiotic support, and a PT evaluation in the morning will help him. (2) UTI (urinary tract infection) Conclusion/Plan: By description on CT of the abdomen and pelvis, his cystitis is quite severe. There is indication of inflammation in the left ureter. This is interpreted as possible pyelonephritis. Plan: Start Rocephin 1 g daily Adjust antibiotics on the basis of identification and sensitivity Qualifiers: Urinary tract infection type: acute cystitis (3) BPH w urinary obs/LUTS Conclusion/Plan: He has progressive symptoms of obstruction over the last few weeks and much worse over the last week. This is a gentleman who has had a TURP, as well as prostate cancer treatment with seeds. CT of the abdomen and pelvis shows he does not have hydronephrosis. Does have a stone that has migrated over the last few months. He has thickening and enhancement of the wall of the left renal pelvis raising the question of a collecting system infection. The bladder wall is markedly thickened consistent with cystitis. This is significantly progressed since the previous study of August 2022. He has prostate implant seeds within normal caliber of prostate. The patient is not on tamsulosin or Proscar.During my exam severe bladder spasm. Grimacing with pain of that as well as attempt to urinate. Plan: Try and get old records about his prostate cancer and seed implants Start Flomax Patient already has an appointment with urology in the next week, and to keep that appointment But I will let Dr. Lou know the patient is here Rudolph catheter placement with Uro-Jet LIDOCAINE prior to placement (4) Atypical chest pain Conclusion/Plan: Present on a daily basis. Ever since his stenting for his CAD. He does not feel that it is similar to his angina that he had prior to the stent. No rhyme or reason and not it usually associated with exertion or rest. Resolves on its own. It does not sound like angina. Some type of costochondritis? Plan: For completeness sake check an EKG, and check troponins. (5) [id number] kidney injury Conclusion/Plan: Most likely due to urinary retention, and decreased p.o. intake. Plan: IV fluids Recheck BMP tomorrow and we will avoid nephrotoxic agents Qualifiers: Acute renal failure type: unspecified Chronic kidney disease stage: stage 2 (mild) Qualified Code(s): N17.9 - Acute kidney failure, unspecified; N18.2 - Chronic kidney disease, stage 2 (mild) - Lab Results Lab results reviewed: Yes Fish Bones: 02/16/23 13:07 02/16/23 13:07 - Diagnostic Imaging Results Diagnostic Imaging Results: positive: Final report reviewed Diagnostic Imaging Results Comments: Chest x-ray is without acute cardiopulmonary process Head CT has age-appropriate volume loss and small vessel ischemic changes without acute intracranial abnormality Abdomen/pelvis CT has a gallbladder surgically absent. Liver spleen and pancreas with adrenals are normal. Small shrunken right kidney with a proximal chronic longstanding renal artery occlusion. A stone that was seen in August 2022 has migrated from the right middle pole into the right renal pelvis. The left kidney has no stones. Both kidneys do not have hydronephrosis. Thickening of the wall of the left renal pelvis. Marked thickening of the gallbladder wall that is new from August 2022. Significantly progressed. Described as "impressive changes". Prostate seed implants in place, normal caliber prostate. He has a stable 3.7 cm abdominal aortic aneurysm with moderate thrombus. 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 Severe coronary artery calcifications. - EKG Results EKG Interpreted Independently: No Core Measures - Anticipated LOS I expect patient to be DC'd or transferred within 96 hours.: Yes - DVT/VTE - Prophylaxis VTE/DVT Prophylaxis med ordered at admit?: Yes
--- NOTE | 2023-02-16 16:20 | PHARMACY PROGRESS NOTE ---
- Best Possible Medication History Admit Date and Time: 02/16/23 1530 Processed by: Pharmacy Medication History completed: Yes Patient Interview: Completed Secondary Source(s): Prescription bottles, Pharmacy records As the person ultimately responsible for medication therapy, providers are able to order a medication from an existing home medication list in [facility] via the "Reconcile Routine" prior to Confirmation of that medication by computer support analyst. Such practice is discouraged except when the physician, in their clinical judgment, deems that a medical need exists for a medication without regard to previous use.
[2023-02-16] MEDS: SODIUM CHLORIDE FLUSH 0.9% 10 ML SYRINGE IVP SCH (16:39)
[2023-02-16] MEDS: SODIUM CHLORIDE 0.9% 1,000 ML IV SCH (16:40)
[2023-02-16] MEDS ORDERED: LIDOCAINE 2% URO-JET 5 ML SYRINGE UR ONE (19:04)
[2023-02-16] MEDS: TAMSULOSIN 0.4 MG CAPSULE PO SCH (20:02)
--- NOTE | 2023-02-16 21:10 | PROVIDER PROGRESS NOTE ---
Plating Stripper Note - Plating Stripper Note Plating Stripper Note: Called by RN stating first set of troponin is high, patient has no symptoms, would recommend continue to trend, also SBP has been uncontrolled restarted on imdur ER 30mg daily first dose now and have also started on Coreg 6.25 mg po bid
[2023-02-16] MEDS: ISOSORBIDE MONONITRATE ER 30 MG TABLET PO SCH (21:15)
[2023-02-16] MEDS: carvediloL 12.5 MG TABLET PO SCH (21:15)
[2023-02-17] MEDS: SODIUM CHLORIDE FLUSH 0.9% 10 ML SYRINGE IVP SCH ×3 (00:56→16:51)
[2023-02-17] MEDS: SODIUM CHLORIDE 0.9% 1,000 ML IV SCH ×2 (02:59→18:13)
[2023-02-17 05:43] LABS: BASOPHILS % (AUTO) 0.3 %; HCT - HEMATOCRIT 35.9 % (42.0-52.0); HGB - HEMOGLOBIN 11.9 g/dL (14.0-18.0); LYMPHOCYTES # (AUTO) 0.5 10^3/uL (1.5-3.5); LYMPHOCYTES % (AUTO) 7.6 %; MEAN CORPUSCULAR HEMOGLOBIN 31.2 pg (27.0-31.0); MEAN CORPUSCULAR HGB CONC 33.1 g/dL (32.0-36.0); MEAN CORPUSCULAR VOLUME 94.2 fL (80.0-94.0); MEAN PLATELET VOLUME 9.4 fL (7.4-11.4); MONOCYTES # (AUTO) 0.5 10^3/uL (0.0-1.0); MONOCYTES % (AUTO) 7.6 %; NEUTROPHILS # (AUTO) 5.8 10^3/uL (1.5-6.6); NEUTROPHILS % (AUTO) 83.9 %; PLT - PLATELET COUNT 107 10^3/uL (130-450); RED BLOOD COUNT 3.81 10^6/uL (4.70-6.10); RED CELL DISTRIBUTION WIDTH 14.6 % (12.0-15.0); WHITE BLOOD COUNT 6.9 x10^3/uL (4.8-10.8)
[2023-02-17 05:55] LABS: CALCIUM 9.2 mg/dL (8.5-10.3); CREATININE 1.5 mg/dL (0.6-1.3); POTASSIUM 4.1 mmol/L (3.5-4.5)
[2023-02-17] MEDS: TAMSULOSIN 0.4 MG CAPSULE PO SCH (08:15)
[2023-02-17] MEDS: ISOSORBIDE MONONITRATE ER 30 MG TABLET PO SCH (08:15)
[2023-02-17] MEDS: cefTRIAXone 1 GM in SODIUM CHLORIDE 0.9% MINIBAG 100 ML IV SCH (08:15)
[2023-02-17] MEDS: carvediloL 12.5 MG TABLET PO SCH ×2 (08:15→21:06)
[2023-02-17] MEDS: ENOXAPARIN 30 MG/0.3 ML SYRINGE SUBQ SCH (08:27)
[2023-02-17] MEDS ORDERED: ENOXAPARIN 40 MG/0.4 ML SYRINGE SUBQ SCH (09:00)
--- NOTE | 2023-02-17 14:44 | Discharge Plan ---
Discharge Plan Problem Reviewed?: Yes Disposition: Home, Self Care Condition: Fair Prescriptions: Ciprofloxacin HCl [Cipro] 500 mg PO BID #28 tablet Tamsulosin [Flomax] 0.4 mg PO DAILY #30 cap Diet: Regular Activity Restrictions: Activity as Tolerated Shower Restrictions: No Driving Restrictions: Yes (no driving) Health Concerns: You have a long history of prostate problems. You have had a TURP for benign prostatic hypertrophy, and you have also had treatment for prostate cancer with seed implants. About 2 months ago you started having urinary incontinence that was new. You state that you had completely normal urinary habits even after your treatment and surgery. Then 2 months ago the incontinence started and has progressed to needing to put a towel in your underwear to keep yourself dry. Over the last 2 days you been having an incredible urge to urinate, it meenu you started getting weaker and weaker. And on the day of admission he was so weak he could not get out of bed. t to urinate, and you were started to have bladder spasms. Your forestry workers Colton, who lives with you, called an ambulance and we found you to have a severe bladder infection. Dehydration. And a low blood pressure causing the weakness. Plan of Treatment: 1. For the low blood pressure we are adjusting your medications. Your metoprolol needs to go from 25 mg tablets 3 times a day to a 25 mg tablet twice a day Your lisinopril tablet is 10 mg twice a day and should go to 10 mg once a day We are not making any other adjustments to your meds other than that. We find that your blood pressure is too low and you are going to start passing out if your blood pressure does not recover. 2. For the severe cystitis that was starting to track of your kidney, we have started you on antibiotics. The bacteria growing is called E. coli. We started you on Cipro 500 mg twice a day. Please take that for the next 7 days. 3. You are due to see a new urologist on Tuesday (today is ). You are changing your urology care from [facility] to [facility] since it is easier for you to get to. Please make sure that the urologist knows that you have been started on antibiotics and ask them how long you should take them. I have only given you 7 days but you may need to take them longer. You also have a Rudolph catheter that has been placed since you are having difficulty urinating and were having urinary retention yesterday. Please ask him to take out your Rudolph catheter when he thinks its appropriate. 4. Please see your primary care provider in follow-up. They will need to adjust your medications for your blood pressure in the next 1 to 2 weeks. I am also a little concerned because you tell me that you have chest pain on a daily basis. It happens frequently, multiple times a day and is associated with only a fleeting few seconds discomfort. Its been going on for decades and you are not alarmed about it. But before you have any surgery, you should have your heart evaluated. Consider having a stress test through the order of your primary care provider to make sure your heart is okay. Care Goals: You do not want to stay in the hospital any longer, you are anxious to go home. Your blood pressure is low and I think you are at risk for fainting and you could hit your head. You do not want to stay any longer. Physical therapy evaluated you and feels you really should be walking with a cane or walker and you say you do not want to do it. Physical therapy also feels that you should be doing, at minimum, a home exercise program and you do not want to do that either. Please reconsider and have your primary care provider placed an order f or outpatient physical therapy to help you. Assessment: Patient is alert, oriented. Some psychomotor slowing, and some cognitive deficits. His caregiver and forestry workers Colton is at the bedside and heard my discharge instructions Follow-Up Care: Outpatient Rehab - PT No Smoking: If you smoke, Please STOP! Call for help.
--- NOTE | 2023-02-17 14:58 | DISCHARGE SUMMARY ---
Discharge Summary Admit Date: 02/16/23 Discharge Date: 02/17/23 Discharging Provider: Sangeetha Lowe MD Primary Care Provider: Samia Magdaleno MD Code Status: Do Not Attempt Resuscitation Condition at Discharge: Fair Discharge Disposition: 01 Home, Self Care - DIAGNOSES Discharge Diagnoses with Status of Each Condition: 1. Severe generalized weakness due to #2 2. Orthostatic hypotension 3. Severe cystitis with E. coli UTI 4. Acute on chronic kidney insufficiency 5. Acute urinary retention. 6. BPH with urinary obstruction 7. Atypical chest pain 8. Elevated troponins - HPI History of Present Illness: The gentleman is an 87-year-old male who still lives in his own home with his . He was brought in by ambulance because of increasing dysuria, urgency, frequency and hematuria since February 11. He has a previous history of prostate seed implants for prostate cancer. He has also had a TURP for a large prostate. The symptoms have been gradually progressive over several weeks but became increasingly worse and more severe on Tuesday. 2 months ago he said he started with just plain urinary incontinence. Out of nowhere he would lose control of his urine. That was a new problem for him. He felt like, after his last treatment, his urination had gone to normal. He control his urine, stream is okay, and nocturia was only once a night. Then the incontinence started. Then the urinary retention started. And all of this progressed to just bladder spasms and pain. He does have an appointment with urology next week. He used to see urology at [facility], but feels that this is much more convenient to stay on the mobile and stay local. Today, however, his weakness was so severe that he could not get out of bed and his called an ambulance. She describes him as confused. Not waking up easily and she is very alarmed. On review of systems he tells me that he has some hearing problems. Slight cataracts. But no problems with eating, swallowing. He has no coughing, wheezing. He has almost daily chest pain that last a few seconds. No rhyme or reason to it. Not necessarily associated with rest or exertion. He has had that chest pain that goes away on its own no matter what he does since he has had his heart attack. There has been no increasing orthopnea or edema with this. No palpitations. He denies any change in appetite until the last few days. He just does not want to eat anything. He is so tired. His bowel movement is irregular. Maybe once or twice a week but it is a normal bowel movement. No blackness or tarriness to it. Urination was normal until 2 months ago. Joints are bothered at the knees and the sides of his feet. Hips and back are okay. He has been doing his exercises on the floor and doing some weight training to make his needs better. There are noes new skin lesions. He denies depression, suicidal ideation, hallucinations. He does not feel that he has dementia. Up until this last few days, he felt like he was "firing in all cylinders". But ever since he has gotten sick with this urine problem he feels like he just cannot think clearly, and he is foggy. He denies any history of seizures, unconsciousness, gait ataxia. 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 Temperature was 37.7. Heart rate 102. Blood pressure 180/94. Respirations 18. 96% on room air. He is 5 foot 8 inches tall, and weighs 86.1 kg. He denies chest pain, shortness of breath. He is alert and oriented. No focal deficits. His abdomen had normal bowel sounds, was soft, nontender. No edema. His white cell count was 10.2. He had a previous GI bleed with diverticular bleeding in the last few weeks which is treated with a coil. Hemoglobin was quite low with that admission and is now 12.9. CMP showed a BUN of 36. With his August admission he was 23. Creatinine is 1.6 with a baseline of 1.3. So he does have acute on chronic renal insufficiency that is mild. GFR is 41 today. Lactic acid is 1.2. Urinalysis is cloudy, with proteinuria, hematuria, positive nitrates, moderate leukocyte Estrace, too numerous to count red cells, greater than 25 white cells, moderate bacteria and no squamous epithelial cells are seen. So he does have a significant UTI. After discussion with the ER provider, this patient does meet criteria for at least observation status. He has generalized weakness due to UTI. I feel that he has an infection with a high risk for rapid progression if we do not treat this and nip this in the bud. He has altered mental status with his confusion, and acute on chronic renal failure. - CONSULTS | PROCEDURES Procedures: Chest x-ray without acute cardiopulmonary process. Head CT with age-related volume loss and small vessel ischemic changes but no infarct or bleeding Abdomen and pelvis CT shows an acutely thickened bladder wall. This is compared to a CT angiogram of the abdomen and pelvis dated August 25. A shrunken right kidney with chronic longstanding renal artery occlusion. A kidney stone has migrated from the right middle pole down into the renal pelvis. No left renal stone or hydronephrosis. He has thickening and enhancement of the wall of the left renal pelvis raising the question of a collecting system infection. Of note the patient has a stable 3.7 cm abdominal aortic aneurysm with moderate thrombus that was seen in the August 2022 CT. Urine culture with E. coli Blood cultures negative after 1 day - HOSPITAL COURSE Hospital Course: He was identified as having a severe cystitis on CT scan. He was having frequent bladder spasms and severe urinary retention once he was on MedSurg and as such I placed a Rudolph. Urine culture has grown out E. coli. Blood cultures are negative. After an overnight stay with approximately 4500 cc of fluid boluses and IV antibiotics, the patient felt back to normal. Overnight, his blood pressure was elevated, so his home medications were resumed and that resulted in the subsequent hypotension during the day. He was 85/53 when his Coreg and Imdur were resumed. As such I reviewed his own medication list and cut back his metoprolol short acting from 25 mg tab, 3 times daily to 25 twice daily. I also cut back his lisinopril from 10 mg tab, twice daily to once daily daily. I am keeping his Imdur of 60 mg daily the same. Baseline for creatinine in this gentleman is 1.3. When he was admitted he was 1.6 and was down to 1.5 on the day of discharge. He is due to see a urologist tomorrow. I told him to make sure he keeps that appointment and let the urologist know that he has a new Rudolph catheter. As the urologist how long he should be on antibiotics and when should the Rudolph come out. I have also asked him to see his primary care provider in follow-up. He states that he has daily frequent fleeting chest pain. It happened so many times a day and has happened for years now. Not particularly associated with rest or with exertion. I checked a troponin and it was 76.4. He then had subsequent severe hypotension to 83 systolic with resumption of his medications. Repeat the next morning was 132.3. However his EKG has no ST-T wave changes. The patient is completely asymptomatic At discharge and has no chest pain, shortness of breath, arm pain, jaw pain, Diaphoresis or nausea. I am attributing this to demand ischemia in the face of hypotension. However he does have a history of coronary artery disease. I would ask his primary care provider to do a stress test prior to this patient having any type of surgical intervention. The patient propose this and says that I am "overreacting". At discharge he is standing at the bedside. New blood pressure is now 115/70. Temperature is 37.1. Heart rate 88. He is a delightful elderly gentleman. His chicken and fish butcher and caregiver Colton stands at the bedside with him. He is slightly hunched over, is furniture surfing even in the room. I told him I really do not like this but he is stoutly maintaining that he will not use a walker or a cane. Neck is supple. No JVD or bruits. He has slow unlabored respirations with diminished breath sounds at the bases but otherwise clear lungs. No respiratory distress, no tachypnea. He has slow irregular rate and rhythm. And abdomen that is soft, nontender. Extremities that have no edema. Slightly deaf. I cannot tell if he has cognitive deficits or that his deafness and innate personality of doing what he wants to do is the issue. Discharged in stable condition. - ALLERGIES Allergies/Adverse Reactions: Allergies Allergy/AdvReac Type Severity Reaction Status Date / Time simvastatin AdvReac Intermediate see below Verified 08/25/22 12:08 amlodipine AdvReac Mild fatigue Verified 08/25/22 12:08 - MEDICATIONS Home Medications: Ambulatory Orders Medication Instructions Recorded Confirmed Pravastatin Sodium 60 mg PO DAILY 05/25/13 02/16/23 Isosorbide Mononitrate [Isosorbide 60 mg PO DAILY 08/26/22 02/16/23 Mononitrate ER] Latanoprost/Pf [Latanoprost 0.005% 1 drops EACHEYE QPM 08/26/22 02/16/23 Eye Drop] Levothyroxine [Synthroid] 100 mcg PO QDAC 08/26/22 02/16/23 Timolol 0.5% Ophth Drops [Timoptic 1 drops EACHEYE BID 08/26/22 02/16/23 0.5% Ophth Drops] Acetaminophen [Aphen] 3.25 tab PO DAILY PRN 02/16/23 02/16/23 Ascorbic Acid [Vitamin C] 1 tab PO QID 02/16/23 02/16/23 Aspirin EC [Ecotrin] 2 tab PO DAILY 02/16/23 02/16/23 Cyanocobalamin (Vitamin B-12) 1 tab PO DAILY 02/16/23 02/16/23 [Vitamin B-12 (1000 mcg sublingual)] Ubidecarenone [Co Q-10] 3 cap PO DAILY 02/16/23 02/16/23 Vitamin B Complex 1 tab PO DAILY 02/16/23 02/16/23 Ciprofloxacin HCl [Cipro] 500 mg PO BID #28 tablet 02/17/23 Metoprolol Tartrate [Lopressor] 25 mg PO BID #0 02/17/23 02/16/23 Tamsulosin [Flomax] 0.4 mg PO DAILY #30 cap 02/17/23 lisinopriL [Lisinopril] 10 mg PO DAILY #0 02/17/23 02/16/23 - LABS Result Diagrams: 02/17/23 05:32 02/17/23 05:32
--- NOTE | 2023-02-17 16:32 | PROVIDER PROGRESS NOTE ---
Progress Note February 17, 2023 4:26 PM Patient is in observation status for hypotension, confusion, and severe cystitis. Mild acute kidney injury associated with this. He is due to see the urologist tomorrow. We resumed some of his home medications which included Imdur, beta-carroll. This dropped his pressure. He is consistently 83 systolic or 78 systolic. For moment he did get up to 115/70. It was at that moment that he really wanted to go home and I did discharge orders. But with the subsequent blood pressures being 78/52 and 83/50 I asked him to please stay. He reluctantly, very reluctantly, agreed to stay. He has chronic stable angina from what I can tell. He takes Imdur for this. He is also on lisinopril 10 mg p.o. twice daily, metoprolol 25 p.o. 3 times daily. Those medications have not been resumed. The only blood pressure lowering medicine he has on is Imdur, and the Flomax and the Coreg. He says he is chest pain-free right now. Very disappointed to stay. Active Medications Acetaminophen (Acetaminophen 325 Mg Tablet) 650 mg PO Q4HR PRN PRN Reason: Pain 1 to 4, or Fever Carvedilol (Carvedilol 12.5 Mg Tablet) 6.25 mg PO BID [facility] Last Admin: 02/17/23 08:15 Dose: 6.25 mg Enoxaparin Sodium (Enoxaparin 30 Mg/0.3 Ml Syringe) 30 mg SUBQ DAILY [facility] Last Admin: 02/17/23 08:27 Dose: 30 mg Ceftriaxone Sodium 1 gm/ (Sodium Chloride) 100 mls @ 200 mls/hr IV DAILY [facility] Last Infusion: 02/17/23 09:07 Dose: Infused Isosorbide Mononitrate (Isosorbide Mononitrate Er 30 Mg Tablet) 30 mg PO DAILY [facility] Last Admin: 02/17/23 08:15 Dose: 30 mg Ondansetron HCl (Ondansetron Odt 4 Mg Tablet) 4 mg TL Q6HR PRN PRN Reason: Nausea / Vomiting Ondansetron HCl (Ondansetron 4 Mg/2 Ml Vial) 4 mg IVP Q6HR PRN PRN Reason: Nausea / Vomiting Oxycodone HCl (Oxycodone 5 Mg Tablet) 5 mg PO Q4HR PRN PRN Reason: Pain 5 to 7 Sodium Chloride (Sodium Chloride Flush 0.9% 10 Ml Syringe) 10 ml IVP PRN PRN PRN Reason: NEEDED PER PROVIDER ORDERS Sodium Chloride (Sodium Chloride Flush 0.9% 10 Ml Syringe) 10 ml IVP 0100,0900,1700 [facility] Last Admin: 02/17/23 08:16 Dose: Not Given Tamsulosin HCl (Tamsulosin 0.4 Mg Capsule) 0.4 mg PO DAILY [facility] Last Admin: 02/17/23 08:15 Dose: 0.4 mg Pravastatin Sodium 60 mg PO DAILY 05/25/13 Isosorbide Mononitrate [Isosorbide Mononitrate ER] 60 mg PO DAILY 08/26/22 Latanoprost/Pf [Latanoprost 0.005% Eye Drop] 1 drops EACHEYE QPM 08/26/22 Levothyroxine [Synthroid] 100 mcg PO QDAC 08/26/22 Timolol 0.5% Ophth Drops [Timoptic 0.5% Ophth Drops] 1 drops EACHEYE BID 08/26/22 Acetaminophen [Aphen] 3.25 tab PO DAILY PRN 02/16/23 Ascorbic Acid [Vitamin C] 1 tab PO QID 02/16/23 Aspirin EC [Ecotrin] 2 tab PO DAILY 02/16/23 Cyanocobalamin (Vitamin B-12) [Vitamin B-12 (1000 mcg sublingual)] 1 tab PO DAILY 02/16/23 Ubidecarenone [Co Q-10] 3 cap PO DAILY 02/16/23 Vitamin B Complex 1 tab PO DAILY 02/16/23 Exam: Temperature is 36.7, heart rate 99, he is a 5 foot 8 inch elderly gentleman who weighs 84.5 kg. He laments that he is hungry and would like to eat. Neck is supple. Lungs are clear to auscultation and percussion. Belly is rotund, normal bowel sounds, nontender. Extremities have trace edema. Blood pressure 83/50. Respirations 24. 97% on room air. He is alert and oriented to person place and time. Walks with a slight wide-based shuffling gait and tends to use the furniture in his hospital room to furniture surf. He does not want to use a walker and refuses to use a cane. Physical therapy has seen him and is really strongly recommended home health PT and OT and he refuses. Lab: BMP shows a slightly improving creatinine of 1.5 which was 1.6 on admission. Baseline is 1.3. BUN is also slightly improved at 28 and he was 36. White cell count is normal at 6.9. It improved from yesterday is 10.2. Hemoglobin is 11.9. Platelets 107. Down from 134 yesterday. Urine cultures positive for E. coli with sensitivities pending. Blood cultures are negative after 1 day Troponin #1 is 76.4, troponin #2 is 132.2, and troponin #3 is 65.3. Colton, his field sales manager and caregiver confirms that he has chronic daily stable angina. That is why he takes the medicines he takes. I did do an EKG last night. 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 No acute ST-T wave changes. He has good R wave progression. Conclusion/Plan - Problem List (1) Hypotension This gentleman presented with severe weakness yesterday. Yesterday supposition was that he was having an impending response to severe cystitis. Possibly an early sepsis. But his lactic acid was normal. He only had mild acute on chronic kidney injury. He has been successfully treated with fluids, IV antibiotics. His confusion has resolved. He is a cheerful, talkative elderly gentleman today. Really wanted to go home because he felt "normal". Nevertheless his Imdur and beta-carroll were resumed last night because of a positive troponin. This gentleman appears to have chronic stable angina by history. His field sales manager/caregiver named Colton states that that is why he takes the Imdur. The patient states that this is no worse than it usually is. I have repeated troponins to make sure he is not having an NH and also checked out an EKG. Nevertheless, he still remains hypotensive. Unsteady on his feet. Furniture surfing in the hospital room. He says he does this at home all the time and both physical therapy and myself are very unhappy with this. He says that we worry too much. He has reluctantly agreed to stay. I told him I really did not want him to go until he knew that his blood pressure was stable. I am not resuming his blood pressure medicines from home. As such as lisinopril and metoprolol will not be given to him. I would like to cut back on his Imdur but I worry about that considering that is what has been taking for years for his stable angina. I will reassess him tomorrow morning to see if his blood pressure can rebound a bit before I send him home. (2) Generalized weakness resolved Conclusion/Plan: This is an elderly gentleman who is usually ambulatory without assist in his own home. But now, in review with his SO, he does need quite a bit of help. He's stubborn and refuses it. She is begging him to let her hire more people bc she is getting overwhelmed and she needs help as well. I feel that the cause of his weakness is a UTI with possible pyelonephritis. He has improved with IV fluids and antibiotics. He feels so much better. Improved by getting up out of bed and walking around the room (although he is furniture surfing). He was placed in observation status for this weakness. But now I am keeping him for problem #1. (3) E coli UTI (urinary tract infection) Conclusion/Plan: By description on CT of the abdomen and pelvis, his cystitis is quite severe. There is indication of inflammation in the left ureter. This is interpreted as possible pyelonephritis. Plan: Start Rocephin 1 g daily, He is day #2 today. Adjust antibiotics on the basis of sensitivity Qualifiers: Urinary tract infection type: acute cystitis (4) BPH w urinary obs/LUTS Conclusion/Plan: He has progressive symptoms of obstruction over the last few weeks and much worse over the last week. This is a gentleman who has had a TURP, as well as prostate cancer treatment with seeds. CT of the abdomen and pelvis shows he does not have hydronephrosis. Does have a stone that has migrated over the last few months. He has thickening and enhancement of the wall of the left renal pelvis raising the question of a collecting system infection. The bladder wall is markedly thickened consistent with cystitis. This is significantly progressed since the previous study of August 2022. He has prostate implant seeds within normal caliber of prostate. The patient is not on tamsulosin or Proscar. During my admission exam he had severe bladder spasm. Grimacing with pain of that as well as attempt to urinate. I placed a Rudolph. I started Flomax. He says that is helped tremendously. He has an appointment with the urologist tomorrow. Plan: Try and get old records about his prostate cancer and seed implants He is requesting a leg bag so when he goes home he can use it. Patient already has an appointment with urology Tomorrow and to keep that appoi ntment But I will let Dr. Lou know the patient is here (5) Chronic stable angina Conclusion/Plan: Present on a daily basis. Ever since his stenting for his CAD. He does not feel that it is similar to his angina that he had prior to the stent. No rhyme or reason and not it usually associated with exertion or rest. Resolves on its own. I am continuing the patient's Imdur. EKG and troponins are acceptable. Plan: I advised him to make sure he gets cardiology clearance before urology does any type of procedure on him. (5) [id number] kidney injury Conclusion/Plan: Most likely due to urinary retention, and decreased p.o. intake.Creatinine is improved. He went from 1.6 on admission to 1.5 today. Baseline is 1.3. Plan: IV fluids to continue Recheck BMP tomorrow and we will avoid nephrotoxic agents Qualifiers: Acute renal failure type: unspecified Chronic kidney disease stage: stage 2 (mild) Qualified Code(s): N17.9 - Acute kidney failure, unspecified; N18.2 - Chronic kidney disease, stage 2 (mild)
[2023-02-18] MEDS: SODIUM CHLORIDE FLUSH 0.9% 10 ML SYRINGE IVP SCH ×2 (01:48→08:56)
[2023-02-18] MEDS: SODIUM CHLORIDE 0.9% 1,000 ML IV SCH (06:30)
[2023-02-18 08:38] LABS: CALCIUM 8.9 mg/dL (8.5-10.3); CREATININE 1.4 mg/dL (0.6-1.3); POTASSIUM 3.8 mmol/L (3.5-4.5)
[2023-02-18] MEDS: cefTRIAXone 1 GM in SODIUM CHLORIDE 0.9% MINIBAG 100 ML IV SCH (08:45)
[2023-02-18] MEDS: carvediloL 12.5 MG TABLET PO SCH (08:45)
[2023-02-18] MEDS: ISOSORBIDE MONONITRATE ER 30 MG TABLET PO SCH (08:45)
[2023-02-18] MEDS: ENOXAPARIN 30 MG/0.3 ML SYRINGE SUBQ SCH (08:46)
[2023-02-18 08:55] LABS: TROPONIN I HIGH SENSITIVITY 35.4 ng/L (2.3-19.7)
[2023-02-18] MEDS: TAMSULOSIN 0.4 MG CAPSULE PO SCH (08:55)
[2023-02-18 10:52] VITALS: BP 138/78; O2SAT 97
== END 2023-02-18 13:40 | disposition home or self-care (01) ==
LOC: EDUNIT# → ED 12:39 → MS2 15:30
PROVIDERS: ADMIT Specialist; ATTEND Specialist
DX: N30.01 Acute cystitis with hematuria (principal); I95.1 Orthostatic hypotension; B96.20 Unspecified Escherichia coli [E. coli] as the cause of diseases classified elsewhere; N17.9 Acute kidney failure, unspecified; N40.1 Benign prostatic hyperplasia with lower urinary tract symptoms; N13.8 Other obstructive and reflux uropathy; C61 Malignant neoplasm of prostate; R33.8 Other retention of urine; R39.15 Urgency of urination; R35.0 Frequency of micturition; R41.0 Disorientation, unspecified; I12.9 Hypertensive chronic kidney disease with stage 1 through stage 4 chronic kidney disease, or unspecified chronic kidney disease; E03.9 Hypothyroidism, unspecified; I71.40 Abdominal aortic aneurysm, without rupture, unspecified; E78.00 Pure hypercholesterolemia, unspecified; Z95.5 Presence of coronary angioplasty implant and graft; Z95.1 Presence of aortocoronary bypass graft; N32.89 Other specified disorders of bladder; N18.2 Chronic kidney disease, stage 2 (mild); N20.0 Calculus of kidney; N28.0 Ischemia and infarction of kidney; I72.3 Aneurysm of iliac artery; Z92.3 Personal history of irradiation; R77.8 Other specified abnormalities of plasma proteins; N39.498 Other specified urinary incontinence; E86.0 Dehydration; Z79.899 Other long term (current) drug therapy; I25.118 Atherosclerotic heart disease of native coronary artery with other forms of angina pectoris; H91.90 Unspecified hearing loss, unspecified ear
CPT/HCPCS: 36415; 70450; 71045; 74177; 80048; 80053; 81001; 83605; 84484; 85025; 87040; 87086; 87181; 93005; 96361; 96365; 96366; 96372; 97161; 97166; 97530; 99284; 99285; A9270; G0378; J1650; Q9967

== ENCOUNTER 2023-02-18 16:42 | Emergency (ER) | payer MEDICARE ==
--- NOTE | 2023-02-18 16:59 | ED Physician Documentation ---
PD HPI MALE - Stated complaint Stated Complaint: FOLY CATH - Chief complaint Chief Complaint: General - History obtained from History obtained from: Patient - History of Present Illness Timing - onset: Today Timing - details: Abrupt onset (he had christensen placed 3 days ago due to urinary retention and it has been draining with some hematuria. Discharged from hospital earlier today and at home has noted the catheter was not having urine out and he felt some bladder fullness. Return for eval of christensen.) Associated symptoms: Christensen problem (not seems to be draining after discharge today.) Recently seen: Admitted (3 days in hospital here.) Review of Systems Constitutional: denies: Fever Cardiac: denies: Chest pain / pressure Respiratory: denies: Dyspnea Neurologic: reports: Generalized weakness (part of reason for recent admission.). denies: Near syncope PD PAST MEDICAL HISTORY - Past Medical History Cardiovascular: Hypertension, High cholesterol, Coronary artery disease, Other Respiratory: None Neuro: None Endocrine/Autoimmune: HyPOthyroidism GI: Hemorrhoids, Other (diverticular LGI bleed with transfer for [facility] 08/2022) : Benign prostate hypertrophy, Retention, Renal insuffiency, Frequency, Kidney stones (Last time he had a Christensen catheter was with his last kidney stone taken care of by Dr. 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: Other Cardiovascular: CABG, Coronary stent HEENT: Cataracts - Present Medications Home Medications: Ambulatory Orders Medication Instructions Recorded Confirmed Pravastatin Sodium 60 mg PO DAILY 05/25/13 02/16/23 Isosorbide Mononitrate [Isosorbide 60 mg PO DAILY 08/26/22 02/16/23 Mononitrate ER] Latanoprost/Pf [Latanoprost 0.005% 1 drops EACHEYE QPM 08/26/22 02/16/23 Eye Drop] Levothyroxine [Synthroid] 100 mcg PO QDAC 08/26/22 02/16/23 Timolol 0.5% Ophth Drops [Timoptic 1 drops EACHEYE BID 08/26/22 02/16/23 0.5% Ophth Drops] Acetaminophen [Aphen] 3.25 tab PO DAILY PRN 02/16/23 02/16/23 Ascorbic Acid [Vitamin C] 1 tab PO QID 02/16/23 02/16/23 Aspirin EC [Ecotrin] 2 tab PO DAILY 02/16/23 02/16/23 Cyanocobalamin (Vitamin B-12) 1 tab PO DAILY 02/16/23 02/16/23 [Vitamin B-12 (1000 mcg sublingual)] Ubidecarenone [Co Q-10] 3 cap PO DAILY 02/16/23 02/16/23 Vitamin B Complex 1 tab PO DAILY 02/16/23 02/16/23 Ciprofloxacin HCl [Cipro] 500 mg PO BID #28 tablet 02/17/23 Metoprolol Tartrate [Lopressor] 25 mg PO BID #0 02/17/23 02/16/23 Tamsulosin [Flomax] 0.4 mg PO DAILY #30 cap 02/17/23 lisinopriL [Lisinopril] 10 mg PO DAILY #0 02/17/23 02/16/23 - Allergies Allergies/Adverse Reactions: Allergies Allergy/AdvReac Type Severity Reaction Status Date / Time simvastatin AdvReac Intermediate see below Verified 08/25/22 12:08 amlodipine AdvReac Mild fatigue Verified 08/25/22 12:08 - Social History Does the pt smoke?: No Smoking Status: Never smoker Does the pt drink ETOH?: Yes Does the pt have substance abuse?: Yes - POLST Patient has POLST: No PD ED PE NORMAL - Vitals Vital signs reviewed: Yes - General General: Alert and oriented X 3, No acute distress (he is ambulating into ER well. Steady gait. ), Well developed/nourished - Abdomen Abdomen: Soft, Non tender - Male Male : Other (christensen in place. No redness nor blood/urine from meatus. The christensen has scant amount of red urine draining. Leg bag in place. The christensen does slide in okay, so appears to be fully into bladder. Nursing will irrigate. ) - Back Back: No CVA TTP - Derm Derm: Normal color, Warm and dry Results - Vitals Vitals: Vital Signs - 24 hr 02/18/23 16:55 Temperature 36.9 C Heart Rate 81 Respiratory 20 Rate Blood Pressure 109/64 O2 Saturation 96 Oxygen O2 Source Room air PD Medical Decision Making - ED course Complexity details: considered differential, d/w patient ED course: The patient was just discharged from the hospital earlier today. He had had the Christensen catheter in for this being the third day. He had been having some hematuria out but that he has been draining appropriately. Seem to stop draining and had the feeling of bladder fullness this afternoon. The catheter bag did not have much urine in it. The catheter appeared to be in the correct position and it did advance and appropriately. Nursing staff irrigated it and got out moderate amount of clots and also back out the 200 mL irrigated in. And now irrigates and drains readily with hematuria but no further clots. At this point I would defer changing the catheter. I would see how it does if there is any further clot formation and seems to clog, then we may need to switch to a three-way catheter with irrigation. At this point we will have the patient home and see if it continues to drain as it had been doing. Departure - Departure Disposition: 01 Home, Self Care Clinical Impression: Christensen catheter problem Qualifiers: Encounter type: initial encounter Qualified Code(s): T83.9XXA - Unspecified complication of genitourinary prosthetic device, implant and graft, initial encounter Hematuria Qualifiers: Hematuria type: gross Qualified Code(s): R31.0 - Gross hematuria Condition: Stable Record reviewed to determine appropriate education?: Yes Comments: Your Christensen catheter seem to clogged because of some clots in it. There is still some blood in the urine obviously. This may form clots and clog the catheter again but seems to be flowing at this point. See how it does at home. If it seems to clog up again without any output and you have a feeling of bladder fullness, return to the ER. If recurrent problems from it, we may need to replace the catheter with a catheter that can flush and irrigate out at the same time (a three-way catheter). Hopefully the bleeding will decrease and not be a further problem. Forms: PCP List Discharge Date/Time: 02/18/23 18:04
[2023-02-18 17:14] VITALS: BP 109/64
== END 2023-02-18 18:04 | disposition home or self-care (01) ==
LOC: ED 16:42
DX: T83.091A Other mechanical complication of indwelling urethral catheter, initial encounter (principal); R33.9 Retention of urine, unspecified; R31.0 Gross hematuria
CPT/HCPCS: 99281; 99283

== ENCOUNTER 2023-02-19 10:49 | Emergency (ER) | payer MEDICARE ==
--- NOTE | 2023-02-19 11:43 | ED Physician Documentation ---
History of Present Illness - Stated complaint Stated Complaint: MALE - Chief complaint Chief Complaint: General - History obtained from History obtained from: Patient - Additonal information Additional information: This is an 87-year-old gentleman who has a history of prior prostate cancer and TURP who was recently admitted to the hospital here for observation for urinary tract infection with hypotension, gross hematuria, and was treated with IV fluids, Rocephin and discharged home on ciprofloxacin for pansensitive E. coli UTI. He had a Rudolph catheter placed for urinary retention while in the hospital and subsequently developed some hematuria. He was seen yesterday here in the ER with hematuria, the catheter was flushed and clear and the patient was discharged home. He presents again today with recurrent hematuria and feels like his catheter gets clogged up. He strongly desires his catheter be removed and states that he has a follow-up with his urologist on Tuesday this week. H e denies any other concerns, denies any fever or chills, no nausea or vomiting, no diarrhea, no confusion, no dizziness or syncope/presyncope. He is otherwise feeling well but would like his Rudolph catheter removed. Review of Systems Constitutional: reports: Reviewed and negative Cardiac: reports: Reviewed and negative Respiratory: reports: Reviewed and negative GI: reports: Reviewed and negative : reports: Hematuria Musculoskeletal: reports: Reviewed and negative Neurologic: reports: Reviewed and negative PD PAST MEDICAL HISTORY - Past Medical History Past Medical History: Yes Cardiovascular: Hypertension, High cholesterol, Coronary artery disease, Other Respiratory: None Neuro: None Endocrine/Autoimmune: HyPOthyroidism GI: Hemorrhoids, Other : Benign prostate hypertrophy, Retention, Renal insuffiency, Indwelling catheter, Frequency, Kidney stones HEENT: Chronic vision loss, Glaucoma Psych: None Musculoskeletal: Osteoarthritis, Gout Derm: Rosacea - Past Surgical History General: Cholecystectomy, 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 Cardiovascular: CABG, Coronary stent HEENT: Cataracts - Present Medications Home Medications: Ambulatory Orders Medication Instructions Recorded Confirmed Pravastatin Sodium 60 mg PO DAILY 05/25/13 02/16/23 Isosorbide Mononitrate [Isosorbide 60 mg PO DAILY 08/26/22 02/16/23 Mononitrate ER] Latanoprost/Pf [Latanoprost 0.005% 1 drops EACHEYE QPM 08/26/22 02/16/23 Eye Drop] Levothyroxine [Synthroid] 100 mcg PO QDAC 08/26/22 02/16/23 Timolol 0.5% Ophth Drops [Timoptic 1 drops EACHEYE BID 08/26/22 02/16/23 0.5% Ophth Drops] Acetaminophen [Aphen] 3.25 tab PO DAILY PRN 02/16/23 02/16/23 Ascorbic Acid [Vitamin C] 1 tab PO QID 02/16/23 02/16/23 Aspirin EC [Ecotrin] 2 tab PO DAILY 02/16/23 02/16/23 Cyanocobalamin (Vitamin B-12) 1 tab PO DAILY 02/16/23 02/16/23 [Vitamin B-12 (1000 mcg sublingual)] Ubidecarenone [Co Q-10] 3 cap PO DAILY 02/16/23 02/16/23 Vitamin B Complex 1 tab PO DAILY 02/16/23 02/16/23 Ciprofloxacin HCl [Cipro] 500 mg PO BID #28 tablet 02/17/23 Metoprolol Tartrate [Lopressor] 25 mg PO BID #0 02/17/23 02/16/23 Tamsulosin [Flomax] 0.4 mg PO DAILY #30 cap 02/17/23 lisinopriL [Lisinopril] 10 mg PO DAILY #0 02/17/23 02/16/23 - Allergies Allergies/Adverse Reactions: Allergies Allergy/AdvReac Type Severity Reaction Status Date / Time simvastatin AdvReac Intermediate see below Verified 08/25/22 12:08 amlodipine AdvReac Mild fatigue Verified 08/25/22 12:08 - Social History Does the pt smoke?: No Smoking Status: Never smoker Does the pt drink ETOH?: Yes Does the pt have substance abuse?: Yes - POLST Patient has POLST: No PD ED PE NORMAL - Vitals Vital signs reviewed: Yes - General General: Alert and oriented X 3, No acute distress, Well developed/nourished - HEENT HEENT: Atraumatic, Moist mucous membranes - Cardiac Cardiac: No murmur, No gallop - Respiratory Respiratory: No respiratory distress, Clear bilaterally - Abdomen Abdomen: Normal bowel sounds, Soft, Non tender, Non distended - Male Male : Other (Rudolph catheter in place, leg bag has Blood-tinged urine, no obvious clots in the bag, it appears to be draining at this time. No penile pain or scrotal pain or swelling ) - Back Back: No CVA TTP - Derm Derm: Normal color, Warm and dry - Neuro Neuro: Alert and oriented X 3 Eye Opening: Spontaneous Motor: Obeys Commands Verbal: Oriented GCS Score: 15 - Psych Psych: Normal mood, Normal affect Results - Vitals Vitals: Vital Signs - 24 hr 02/19/23 10:58 Temperature 36.6 C Heart Rate 65 Respiratory 20 Rate Blood Pressure 100/56 L O2 Saturation 99 Oxygen O2 Source Room air PD Medical Decision Making - ED course Complexity details: reviewed old records, re-evaluated patient, considered differential, d/w patient ED course: 87-year-old male with a history of prostate cancer with prior TURP and recent UTI for which she is on ciprofloxacin presents with hematuria and requesting his Rudolph catheter be removed. Patient is well-appearing on physical exam, and otherwise has no concerns today. I discussed with patient that I recommended the catheter stay in place until he followed up with urologist but he strongly desired to have it removed today. We therefore irrigated the catheter, there were no further clots in the drainage was clear to blood-tinged. We then remove the catheter and waited to see if the patient was able to void okay. He was able to void and therefore we have left the catheter out however I did discuss with patient that if she had recurrent bleeding, it is possible that clots would prevent him from voiding and he would need to return urgently to the ER for replacement of Rudolph catheter. The patient stated understanding and he continued to do desire to have the catheter remain out. I did review his prior records and he is on appropriate antibiotics for his UTI and has no other symptoms of UTI therefore do think he is stable for discharge home at this time. Return precautions reviewed and patient to keep follow-up with urologist on Tuesday as scheduled. Departure - Departure Disposition: Home, Self Care Clinical Impression: Hematuria Qualifiers: Hematuria type: gross Qualified Code(s): R31.0 - Gross hematuria Condition: Good Instructions: ED Hematuria Comments: Please see urologist next week as scheduled. Stay well hydrated to continue to void frequently. Return if you are not able to urinate or have new concerns. Forms: PCP List
[2023-02-19 14:18] VITALS: BP 134/84
== END 2023-02-19 14:17 | disposition home or self-care (01) ==
LOC: ED 10:49
DX: R31.0 Gross hematuria (principal)
CPT/HCPCS: 99281; 99283

== ENCOUNTER 2023-02-23 08:00 | Outpatient (CLI) | payer MEDICARE ==
[2023-02-23 16:11] LABS: BILIRUBIN,URINE NEGATIVE (NEGATIVE); GLUCOSE, URINE (UA) NEGATIVE (NEGATIVE); KETONES,URINE (UA) NEGATIVE (NEGATIVE); LEUKOCYTE ESTERASE, URINE NEGATIVE (NEGATIVE); NITRITE,URINE NEGATIVE (NEGATIVE); OCCULT BLOOD,URINE LARGE (NEGATIVE); PROTEIN,URINE NEGATIVE (NEGATIVE); UROBILINOGEN,URINE 0.2 (NORMAL) E.U./dL (NORMAL)
[2023-02-23 16:12] LABS: CLARITY,URINE HAZY (CLEAR)
[2023-02-23 16:30] LABS: BACTERIA,URINE Rare /HPF (None Seen); RBC,URINE TNTC /HPF (0-5); SQUAMOUS EPITHELIAL CELL,UR RARE Squamous (<= Few); WBC,URINE 0-3 /HPF (0-3)
== END 2023-02-23 23:59 | disposition home or self-care (01) ==
LOC: LAB.R 08:00
PROVIDERS: ATTEND Urology
DX: R31.9 Hematuria, unspecified (principal)
CPT/HCPCS: 81001; 87086

== ENCOUNTER 2023-02-23 13:58 | Outpatient (CLI) | payer MEDICARE | END 2023-02-23 13:59 | disposition home or self-care (01) | LOC: LAB 13:58 | PROVIDERS: ATTEND Urology | DX: C61 Malignant neoplasm of prostate (principal); R31.9 Hematuria, unspecified | CPT/HCPCS: 36415; 81001; 84153; 87086 ==

== ENCOUNTER 2023-04-02 12:00 | Emergency (ER) | payer MEDICARE ==
--- NOTE | 2023-04-02 12:27 | ED Physician Documentation ---
PD HPI ABD PAIN - Stated complaint Stated Complaint: GI - Chief complaint Chief Complaint: Abd Pain - History obtained from History obtained from: Patient - Additional information Additional information: 87-year-old gentleman with history of cholecystectomy, TURP, and two-vessel bypass on aspirin but no other anticoagulants developed stool that has been darkening over the last few days and now has black diarrhea. There is no associated pain. No history of GI bleeding. 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 Cardiovascular: CABG, Coronary stent HEENT: Cataracts - Present Medications Home Medications: Ambulatory Orders Medication Instructions Recorded Confirmed Pravastatin Sodium 60 mg PO DAILY 05/25/13 04/02/23 Isosorbide Mononitrate [Isosorbide 60 mg PO DAILY 08/26/22 04/02/23 Mononitrate ER] Latanoprost/Pf [Latanoprost 0.005% 1 drops EACHEYE QPM 08/26/22 04/02/23 Eye Drop] Levothyroxine [Synthroid] 100 mcg PO QDAC 08/26/22 04/02/23 Timolol 0.5% Ophth Drops [Timoptic 1 drops EACHEYE BID 08/26/22 04/02/23 0.5% Ophth Drops] Acetaminophen [Aphen] 3.25 tab PO DAILY PRN 02/16/23 04/02/23 Ascorbic Acid [Vitamin C] 1 tab PO QID 02/16/23 04/02/23 Aspirin EC [Ecotrin] 2 tab PO DAILY 02/16/23 04/02/23 Cyanocobalamin (Vitamin B-12) 1 tab PO DAILY 02/16/23 04/02/23 [Vitamin B-12 (1000 mcg sublingual)] Ubidecarenone [Co Q-10] 3 cap PO DAILY 02/16/23 04/02/23 Vitamin B Complex 1 tab PO DAILY 02/16/23 04/02/23 Metoprolol Tartrate [Lopressor] 25 mg PO BID #0 02/17/23 04/02/23 Tamsulosin [Flomax] 0.4 mg PO DAILY #30 cap 02/17/23 04/02/23 lisinopriL [Lisinopril] 10 mg PO DAILY #0 02/17/23 04/02/23 - Allergies Allergies/Adverse Reactions: Allergies Allergy/AdvReac Type Severity Reaction Status Date / Time simvastatin AdvReac Intermediate see below Verified 08/25/22 12:08 amlodipine AdvReac Mild fatigue Verified 08/25/22 12:08 - Social History Does the pt smoke?: No Smoking Status: Never smoker Does the pt drink ETOH?: Yes Does the pt have substance abuse?: Yes - POLST Patient has POLST: No PD ED PE NORMAL - Vitals Vital signs reviewed: Yes (Hemodynamics are normal) - General General: Alert and oriented X 3, No acute distress - Cardiac Cardiac: RRR, No murmur - Respiratory Respiratory: No respiratory distress, Clear bilaterally - Abdomen Abdomen: Normal bowel sounds, Soft, Non tender - Rectal Rectal: Other (Dark brown stool sent for guaiac) - Neuro Neuro: Alert and oriented X 3, Normal speech Results - Vitals Vitals: Vital Signs - 24 hr 04/02/23 04/02/23 12:11 13:16 Temperature 36.7 C Heart Rate 80 76 Respiratory 16 18 Rate Blood Pressure 122/80 123/80 O2 Saturation 97 99 Oxygen O2 Source Room air - Labs Labs: Microbiology 04/02/23 14:13 Occult Blood - Final Stool 04/02/23 12:35 Occult Blood - Final Stool Laboratory Tests 04/02/23 04/02/23 04/02/23 12:27 12:27 12:27 WBC 9.6 RBC 4.18 L Hgb 12.9 L Hct 39.8 L MCV 95.2 H MCH 30.9 MCHC 32.4 RDW 14.5 Plt Count 159 MPV 9.2 Neut # (Auto) 8.9 H Lymph # (Auto) 0.2 L [place] # (Auto) 0.4 Eos # (Auto) 0.0 Baso # (Auto) 0.0 Absolute Nucleated RBC 0.00 Nucleated RBC % 0.0 PT 11.1 INR 1.0 Sodium Potassium Chloride Carbon Dioxide Anion Gap BUN Creatinine Estimated GFR (MDRD) Glucose Calcium Total Bilirubin AST ALT Alkaline Phosphatase Total Protein Albumin Globulin Albumin/Globulin Ratio Lipase Blood Type A POSITIVE Antibody Screen NEGATIVE 04/02/23 12:27 WBC RBC Hgb Hct MCV MCH MCHC RDW Plt Count MPV Neut # (Auto) Lymph # (Auto) [place] # (Auto) Eos # (Auto) Baso # (Auto) Absolute Nucleated RBC Nucleated RBC % PT INR Sodium 137 Potassium 4.2 Chloride 104 Carbon Dioxide 24 Anion Gap 9.0 BUN 36 H Creatinine 1.4 H Estimated GFR (MDRD) 48 L Glucose 117 H Calcium 9.2 Total Bilirubin 1.1 H AST 24 ALT 20 Alkaline Phosphatase 61 Total Protein 7.4 Albumin 4.5 Globulin 2.9 Albumin/Globulin Ratio 1.6 Lipase 57 H Blood Type Antibody Screen PD Medical Decision Making - ED course ED course: 87-year-old gentleman with history of GI bleed presents with concern for black stools. His hemoglobin is actually quite good for him at 12.9. White count normal. INR normal. Chemistries notable for renal function that is at his baseline, but depressed. Initial guaiac was negative but the rectal sample was fairly small. After a while he was able to give a larger sample and this was s ent for a second guaiac. I did view his diarrheal stool at that point and did not look black to me. It was not melanic. Review of the chart shows he was admitted in August of this year for lower GI bleeding. 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 He had a colonoscopy with no active bleeding but clots throughout the colon and was sent to [facility] for potential IR. He required 3 units of blood here prior to transfer. His leatha hemoglobin was 6.7, and went back down to 6.7. He states that nothing was done at [facility] and he was sent home because the bleeding had stopped. There is no intervention necessary. Subsequently the second larger volume guaiac was also negative. It was fairly liquidy and sent for stool culture and C. difficile test. He was on antibiotics about a month ago for a bladder issue. Departure - Departure Disposition: 01 Home, Self Care Clinical Impression: Diarrhea Qualifiers: Diarrhea type: unspecified type Qualified Code(s): R19.7 - Diarrhea, unspecified Condition: Good Record reviewed to determine appropriate education?: Yes Instructions: ED Diarrhea Viral Comments: There was no blood in your stool on either sample, so there is no active bleeding and your blood counts for you are actually pretty good. Remainder of your testing is at your baseline. Return if worsening or if your stool becomes more black again. In the meantime we are running tests for C. difficile and a stool culture and we will call you with positive results. Follow-up with your primary care physician next week to discuss this visit. Forms: PCP List
[2023-04-02 12:37] LABS: BASOPHILS % (AUTO) 0.4 %; EOSINOPHILS % (AUTO) 0.4 %; HCT - HEMATOCRIT 39.8 % (42.0-52.0); HGB - HEMOGLOBIN 12.9 g/dL (14.0-18.0); LYMPHOCYTES # (AUTO) 0.2 10^3/uL (1.5-3.5); LYMPHOCYTES % (AUTO) 2.1 %; MEAN CORPUSCULAR HEMOGLOBIN 30.9 pg (27.0-31.0); MEAN CORPUSCULAR HGB CONC 32.4 g/dL (32.0-36.0); MEAN CORPUSCULAR VOLUME 95.2 fL (80.0-94.0); MEAN PLATELET VOLUME 9.2 fL (7.4-11.4); MONOCYTES # (AUTO) 0.4 10^3/uL (0.0-1.0); MONOCYTES % (AUTO) 3.8 %; NEUTROPHILS # (AUTO) 8.9 10^3/uL (1.5-6.6); NEUTROPHILS % (AUTO) 92.9 %; PLT - PLATELET COUNT 159 10^3/uL (130-450); RED BLOOD COUNT 4.18 10^6/uL (4.70-6.10); RED CELL DISTRIBUTION WIDTH 14.5 % (12.0-15.0); WHITE BLOOD COUNT 9.6 x10^3/uL (4.8-10.8)
[2023-04-02 12:46] LABS: PT - PROTHROMBIN TIME 11.1 secs (9.9-12.6)
[2023-04-02 12:50] LABS: ALBUMIN 4.5 g/dL (3.2-5.5); ALBUMIN/GLOBULIN RATIO 1.6 (1.0-2.2); BILIRUBIN,TOTAL 1.1 mg/dL (0.2-1.0); CALCIUM 9.2 mg/dL (8.5-10.3); CREATININE 1.4 mg/dL (0.6-1.2); POTASSIUM 4.2 mmol/L (3.5-5.0); TOTAL PROTEIN 7.4 g/dL (6.7-8.2)
[2023-04-02 14:58] VITALS: BP 108/66; O2SAT 100
== END 2023-04-02 15:06 | disposition home or self-care (01) ==
LOC: ED 12:00
DX: R19.7 Diarrhea, unspecified (principal); Z79.01 Long term (current) use of anticoagulants
CPT/HCPCS: 36415; 80053; 82272; 83690; 85025; 85610; 86850; 86900; 86901; 87045; 87046; 87427; 87493; 99283

== ENCOUNTER 2023-05-09 10:15 | Outpatient (CLI) | payer MEDICARE ==
[2023-05-09 15:03] LABS: BASOPHILS # (AUTO) 0.1 10^3/uL (0.0-0.1); BASOPHILS % (AUTO) 0.7 %; EOSINOPHILS # (AUTO) 0.2 10^3/uL (0.0-0.7); HCT - HEMATOCRIT 40.3 % (42.0-52.0); HGB - HEMOGLOBIN 12.8 g/dL (14.0-18.0); LYMPHOCYTES # (AUTO) 1.1 10^3/uL (1.5-3.5); MEAN CORPUSCULAR HGB CONC 31.8 g/dL (32.0-36.0); MEAN CORPUSCULAR VOLUME 94.6 fL (80.0-94.0); MEAN PLATELET VOLUME 10.8 fL (7.4-11.4); MONOCYTES # (AUTO) 0.6 10^3/uL (0.0-1.0); MONOCYTES % (AUTO) 8.2 %; NEUTROPHILS # (AUTO) 5.5 10^3/uL (1.5-6.6); NEUTROPHILS % (AUTO) 72.7 %; PLT - PLATELET COUNT 195 10^3/uL (130-450); RED BLOOD COUNT 4.26 10^6/uL (4.70-6.10); RED CELL DISTRIBUTION WIDTH 14.1 % (12.0-15.0); WHITE BLOOD COUNT 7.6 x10^3/uL (4.8-10.8)
[2023-05-09 15:53] LABS: % IRON SATURATION 20 % (20-50); ALBUMIN 4.6 g/dL (3.2-5.5); ALBUMIN/GLOBULIN RATIO 1.6 (1.0-2.2); ALKALINE PHOSPHATASE 66 IU/L (42-121); ALT ALANINE AMINOTRANSFERASE 16 IU/L (10-60); AST ASPARTATE AMINOTRANSFERASE 24 IU/L (10-42); BILIRUBIN,TOTAL 0.7 mg/dL (0.2-1.0); BUN - BLOOD UREA NITROGEN 33 mg/dL (6-20); CARBON DIOXIDE - CO2 26 mmol/L (21-32); CHLORIDE 106 mmol/L (101-111); CHOL/HDL RATIO 3.3 (<5.0); CHOLESTEROL 180 mg/dL; CREATININE 1.3 mg/dL (0.6-1.3); GFR - MDRD 52 (>89); GLUCOSE 91 mg/dL (74-104); HDL CHOLESTEROL 55 mg/dL; IRON 67 ug/dL (50-212); LDL CHOLESTEROL,CALCULATED 63 mg/dL; LDL/HDL RATIO 1.1 (<3.6); POTASSIUM 4.5 mmol/L (3.5-4.5); SODIUM 140 mmol/L (135-145); TOTAL IRON BINDING CAPACITY 332 ug/dL (250-450); TOTAL PROTEIN 7.4 g/dL (6.4-8.9); TRANSFERRIN 237 mg/dL (203-362); TRIGLYCERIDES 312 mg/dL (48-352); VLDL CHOLESTEROL 62 mg/dL
== END 2023-05-09 10:16 | disposition home or self-care (01) ==
LOC: LAB.S 10:15
PROVIDERS: ATTEND Family Medicine Sports Medicine
DX: E78.5 Hyperlipidemia, unspecified (principal); I10 Essential (primary) hypertension; E03.9 Hypothyroidism, unspecified; D64.9 Anemia, unspecified
CPT/HCPCS: 36415; 80053; 80061; 82728; 83540; 83721; 84439; 84443; 84466; 85025

== ENCOUNTER 2023-06-14 13:07 | Emergency (ER) | payer MEDICARE ==
--- NOTE | 2023-06-14 14:01 | ED Physician Documentation ---
PD HPI LOWER EXT INJURY - Stated complaint Stated Complaint: GLF, RT LEG INJ - Chief complaint Chief Complaint: Trauma Ext - History obtained from History obtained from: Patient - Additional information Additional information: Patient is an 87-year-old male presenting for evaluation of right leg pain after a ground-level fall on Tuesday. Patient states he was at a restaurant and there was a small stage where he tripped and fell over hitting his leg against. Since that time he has not been able to put weight on the right leg. He was helped up by 2 people nearby and they assisted him to the car. 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 Patient denies hitting his head or having LOC. He reports having had a few other falls due to pain in the leg including last night. When he fell down to the ground last night he states he hit his nose on his crutch causing a scratch. He again denies hitting his head on the ground or any other head injury. He does not take blood thinners. He has been using Tylenol for pain. Denies chest pain, shortness of air, abdominal symptoms. Review of Systems Constitutional: denies: Fever Cardiac: denies: Chest pain / pressure Respiratory: denies: Dyspnea Musculoskeletal: reports: Extremity pain PD PAST MEDICAL HISTORY - Past Medical History Past Medical History: Yes Cardiovascular: Hypertension, High cholesterol, Coronary artery disease, Other Respiratory: None Neuro: None Endocrine/Autoimmune: HyPOthyroidism GI: Hemorrhoids, Other : Benign prostate hypertrophy, Retention, Renal insuffiency, Indwelling catheter, Frequency, Kidney stones HEENT: Chronic vision loss, Glaucoma Psych: None Musculoskeletal: Osteoarthritis, Gout Derm: Rosacea - Past Surgical History Past Surgical History: Yes General: Cholecystectomy, Colonoscopy /IMPORTER OR EXPORTER: Other Cardiovascular: CABG, Coronary stent HEENT: Cataracts - Present Medications Home Medications: Ambulatory Orders Medication Instructions Recorded Confirmed Pravastatin Sodium 60 mg PO DAILY 05/25/13 06/14/23 Isosorbide Mononitrate [Isosorbide 60 mg PO DAILY 08/26/22 06/14/23 Mononitrate ER] Latanoprost/Pf [Latanoprost 0.005% 1 drops EACHEYE QPM 08/26/22 06/14/23 Eye Drop] Levothyroxine [Synthroid] 100 mcg PO QDAC 08/26/22 06/14/23 Timolol 0.5% Ophth Drops [Timoptic 1 drops EACHEYE BID 08/26/22 06/14/23 0.5% Ophth Drops] Acetaminophen [Aphen] 650 mg PO Q6HR PRN 02/16/23 06/14/23 Ascorbic Acid [Vitamin C] 1 tab PO QID 02/16/23 06/14/23 Aspirin EC [Ecotrin] 1 tab PO DAILY 02/16/23 06/14/23 Cyanocobalamin (Vitamin B-12) 1 tab PO DAILY 02/16/23 06/14/23 [Vitamin B-12 (1000 mcg sublingual)] Ubidecarenone [Co Q-10] 3 cap PO DAILY 02/16/23 06/14/23 Vitamin B Complex 1 tab PO DAILY 02/16/23 06/14/23 Metoprolol Tartrate [Lopressor] 25 mg PO BID #0 02/17/23 06/14/23 lisinopriL [Lisinopril] 10 mg PO DAILY #0 02/17/23 06/14/23 - Allergies Allergies/Adverse Reactions: Allergies Allergy/AdvReac Type Severity Reaction Status Date / Time simvastatin AdvReac Intermediate see below Verified 06/14/23 13:30 amlodipine AdvReac Mild fatigue Verified 06/14/23 13:30 - Social History Does the pt smoke?: No Smoking Status: Never smoker Does the pt drink ETOH?: Yes Does the pt have substance abuse?: Yes - Immunizations Immunizations are current?: No - POLST Patient has POLST: No PD ED PE NORMAL - General General: Alert and oriented X 3, No acute distress, Well developed/nourished - HEENT HEENT: PERRL, EOMI, Other (Abrasion to tip of nose, no significant swelling, no tenderness, no signs of septal hematoma) - Neck Neck: Supple, no meningeal sign, No bony TTP - Cardiac Cardiac: RRR, Strong equal pulses - Respiratory Respiratory: No respiratory distress, Clear bilaterally - Abdomen Abdomen: Soft, Non tender, Non distended - Extremities Extremities: Other (Bruising over proximal femur to the right leg with associated swelling from hip to knee, pain on range of motion of right knee and hip, no tenderness over tib-fib or foot with distal pulses intact, sensation grossly intact, no pain on range of motion of left lower extremity or bilateral upper extrem) - Neuro Neuro: Alert and oriented X 3, No motor deficit, No sensory deficit, Normal speech Results - Vitals Vitals: Vital Signs - 24 hr 06/14/23 06/14/23 13:23 14:25 Temperature 36.3 C L Heart Rate 97 81 Respiratory 16 16 Rate Blood Pressure 139/79 H 169/88 H O2 Saturation 99 99 Oxygen O2 Source Room air PD Medical Decision Making - ED course Complexity details: reviewed results, re-evaluated patient, d/w patient ED course: Patient presenting for evaluation of a ground-level fall on Tuesday where he struck his leg against a small stage. He denies hitting his head or having LOC. He does not take a blood thinner. He does have bruising to the right thigh. He has been trying to get around with crutches but reports having some falls still but again denies hitting his head. He does not have significant bony tenderness but does have soft tissue swelling over the right thigh with bruising. X-rays were obtained of the right hip, right femur, right knee and I see no fracture or dislocation. Patient will be given pain medications. We will attempt to ambulate once pain medications have sent in and reevaluate. Departure - Departure Forms: PCP List
[2023-06-14] MEDS ORDERED: oxyCODONE 5 MG TABLET PO STA (14:41)
--- NOTE | 2023-06-14 14:54 | XRAY Report ---
PROCEDURE: Femur 2V RT INDICATIONS: fall/pain TECHNIQUE: 2 views of the femur were acquired. COMPARISON: None. FINDINGS: Bones: No fractures or dislocations. No suspicious bony lesions. Soft tissues: No suspicious soft tissue calcifications or masses. IMPRESSION: No acute bony abnormality. Reviewed by: Mario Robles on 06/14/2023 1:52 PM JUAN R Approved by: Mario Robles on 06/14/2023 1:52 PM [facility] Station ID: [id number]
--- NOTE | 2023-06-14 14:55 | XRAY Report ---
PROCEDURE: Pelvis 1 View INDICATIONS: fall/bruising TECHNIQUE: 2 view(s) of the pelvis acquired. COMPARISON: None. FINDINGS: Bones: No fractures or dislocations. No suspicious bony lesions. Degenerative changes of both hip s. The sacroiliac joints and lower lumbar spine have degenerative changes. Soft tissues: Visualized bowel gas pattern is normal. No suspicious soft tissue calcifications. IMPRESSION: No acute bony abnormality. Reviewed by: Mario Robles on 06/14/2023 1:53 PM [facility] Approved by: Mario Robles on 06/14/2023 1:53 PM [facility] Station ID: [id number]
--- NOTE | 2023-06-14 14:56 | XRAY Report ---
PROCEDURE: Knee 4 View RT INDICATIONS: fall/pain TECHNIQUE: 4 views of the knee(s) were acquired. COMPARISON: None. FINDINGS: Bones: No fractures or dislocations. No suspicious bony lesions. Soft tissues: Small knee joint effusion. No suspicious soft tissue calcifications or masses. IMPRESSION: No acute bony abnormality. Small joint effusion. Reviewed by: Mario Robles on 06/14/2023 1:55 PM JUAN R Approved by: Mario Robles on 06/14/2023 1:55 PM [facility] Station ID: [id number]
--- NOTE | 2023-06-14 16:10 | ED Physician Documentation ---
ED Addendum - Addendum Addendum: 06/14/23 16:[address] Jacinto at 3 PM shift change. Signout was that he had an injury of the leg with negative imaging. If he were to be able to ambulate after some analgesia probably does not need further imaging but consider further imaging if not able to ambulate. After 5 mg of oxycodone he ambulated well with a walker per the nurse. I did personally evaluate him and he was feeling much better and admitted he was ambulating much better now. On examination he had no hip tenderness and no significant pain with internal/external rotation of the right hip. Disposition: Discharged home Condition: Stable Prescription for oxycodone 5 mg every 6 hours p.o. #20 to [facility] was sent. Diagnosis: 1. Right leg contusion 2. Right knee contusion 06/14/23 17:21
[2023-06-14 16:21] VITALS: BP 172/97; O2SAT 100
== END 2023-06-14 16:32 | disposition home or self-care (01) ==
LOC: ED 13:07
DX: S00.31XA Abrasion of nose, initial encounter (principal); S80.01XA Contusion of right knee, initial encounter; W01.198A Fall on same level from slipping, tripping and stumbling with subsequent striking against other object, initial encounter; Y93.01 Activity, walking, marching and hiking; Y92.511 Restaurant or cafe as the place of occurrence of the external cause
CPT/HCPCS: 72170; 73552; 73564; 99283; 99284; A9270

== ENCOUNTER 2023-08-02 14:18 | Outpatient (CLI) | payer MEDICARE | END 2023-08-02 14:19 | disposition short-term general hospital (02) | LOC: EMS 14:18 | DX: R31.0 Gross hematuria (principal); R39.14 Feeling of incomplete bladder emptying | CPT/HCPCS: A0425; A0429 ==

== ENCOUNTER 2023-08-07 09:40 | Outpatient (CLI) | payer MEDICARE | END 2023-08-07 09:41 | disposition EMS.NT | LOC: EMS 09:40 | DX: Z46.6 Encounter for fitting and adjustment of urinary device (principal) ==

== ENCOUNTER 2023-08-09 15:07 | Outpatient (CLI) | payer MEDICARE | END 2023-08-09 15:08 | disposition EMS.NT | LOC: EMS 15:07 | DX: Z03.89 Encounter for observation for other suspected diseases and conditions ruled out (principal) ==

== ENCOUNTER 2023-08-12 09:35 | Outpatient (CLI) | payer MEDICARE ==
--- NOTE | 2023-08-12 13:45 | XRAY Report ---
PROCEDURE: Knee 2V LT INDICATIONS: LEFT KNEE PAIN/RIGHT KNEE PAIN TECHNIQUE: 2 views of the knee(s) were acquired. COMPARISON: 4 views of the right knee dated 06/14/2023. FINDINGS: Bones: There is moderate bilateral femorotibial compartment narrowing and small bilateral intercondy lar osteophytes. There are small left lateral compartment and small right medial femorotibial compart ment osteophytes. Soft tissues: No knee joint effusion. Scattered soft tissue vascular calcifications are noted. IMPRESSION: Moderate bilateral knee osteoarthritis. Reviewed by: Trina Ramachandran MD on 08/12/2023 1:44 PM PST Approved by: Trina Ramachandran MD on 08/12/2023 1:44 PM PST Station ID: [id number]
--- NOTE | 2023-08-12 13:47 | XRAY Report ---
PROCEDURE: Knee 1-2V RT INDICATIONS: LEFT KNEE PAIN/RIGHT KNEE PAIN TECHNIQUE: 2 views of the knee(s) were acquired. COMPARISON: 4 views of the right knee dated 06/14/2023. FINDINGS: Bones: There is moderate bilateral femorotibial compartment narrowing, small intercondylar osteophyt es, and small lateral compartment left and medial compartment right femorotibial osteophytes. No acut e fracture or dislocation. No suspicious bony lesions. Soft tissues: There is likely a small right joint effusion. knee joint effusion. Vascular calcificat ions are noted. IMPRESSION: 1. Moderate bilateral osteoarthritis. 2. Probable small right knee joint effusion. 3. Arterial atherosclerosis. Reviewed by: Trina Ramachandran MD on 08/12/2023 1:46 PM PST Approved by: Trina Ramachandran MD on 08/12/2023 1:46 PM PST Station ID: [id number]
== END 2023-08-12 09:36 | disposition home or self-care (01) ==
LOC: DI.S 09:35
PROVIDERS: ATTEND Internal Medicine
DX: M17.0 Bilateral primary osteoarthritis of knee (principal); I70.203 Unspecified atherosclerosis of native arteries of extremities, bilateral legs

== ENCOUNTER 2023-08-25 10:46 | Outpatient (CLI) | payer MEDICARE ==
[2023-08-25 10:59] LABS: BASOPHILS # (AUTO) 0.1 10^3/uL (0.0-0.1); BASOPHILS % (AUTO) 0.9 %; EOSINOPHILS # (AUTO) 0.2 10^3/uL (0.0-0.7); EOSINOPHILS % (AUTO) 3.4 %; HCT - HEMATOCRIT 32.7 % (42.0-52.0); HGB - HEMOGLOBIN 10.2 g/dL (14.0-18.0); LYMPHOCYTES # (AUTO) 0.9 10^3/uL (1.5-3.5); LYMPHOCYTES % (AUTO) 13.1 %; MEAN CORPUSCULAR HEMOGLOBIN 29.5 pg (27.0-31.0); MEAN CORPUSCULAR HGB CONC 31.2 g/dL (32.0-36.0); MEAN CORPUSCULAR VOLUME 94.5 fL (80.0-94.0); MEAN PLATELET VOLUME 9.5 fL (7.4-11.4); MONOCYTES # (AUTO) 0.6 10^3/uL (0.0-1.0); MONOCYTES % (AUTO) 8.8 %; NEUTROPHILS % (AUTO) 73.4 %; PLT - PLATELET COUNT 173 10^3/uL (130-450); RED BLOOD COUNT 3.46 10^6/uL (4.70-6.10); RED CELL DISTRIBUTION WIDTH 14.8 % (12.0-15.0); WHITE BLOOD COUNT 6.7 x10^3/uL (4.8-10.8)
[2023-08-25 11:17] LABS: ALBUMIN/GLOBULIN RATIO 1.4 (1.0-2.2); BILIRUBIN,TOTAL 0.7 mg/dL (0.2-1.0); CALCIUM 9.4 mg/dL (8.5-10.3); CREATININE 1.1 mg/dL (0.6-1.3); POTASSIUM 3.9 mmol/L (3.5-4.5); TOTAL PROTEIN 6.8 g/dL (6.4-8.9); URIC ACID 6.9 mg/dL (4.4-7.6)
== END 2023-08-25 10:47 | disposition home or self-care (01) ==
LOC: LAB 10:46
PROVIDERS: ATTEND Internal Medicine
DX: I10 Essential (primary) hypertension (principal); E03.9 Hypothyroidism, unspecified; E78.5 Hyperlipidemia, unspecified; R31.9 Hematuria, unspecified; C61 Malignant neoplasm of prostate
CPT/HCPCS: 36415; 80053; 84153; 84550; 85025

== ENCOUNTER 2023-09-06 12:52 | Outpatient (CLI) | payer MEDICARE ==
--- NOTE | 2023-09-06 19:28 | MRI Report ---
PROCEDURE: Knee RT WO INDICATIONS: RIGHT KNEE PAIN TECHNIQUE: Noncontrast sagittal PD fast spin echo and T2 fast spin echo with fat saturation, sagittal 3-D gradie nt sequence with fat saturation; coronal T1 spin echo and PD fast spin echo with fat saturation, and axial PD fast spin echo with fat saturation through the knee. COMPARISON: Radiograph 08/12/2023 FINDINGS: Image quality: Diagnostic Menisci Medial: Macerated medial meniscus, with free edge truncation and complex tears extending from the alejandro t, to the body, to the anterior and posterior horns. Orientation is primarily horizontal and oblique, extending to the root. Lateral: Free edge truncation and primarily oblique tear involving the body, anterior horn, and poste rior horn. Cruciate ligaments: Intact Medial structures MCL: Mild proximal signal abnormality and periligamentous edema Pes anserine tendons: Intact Semimembranosus: Mild insertional tendinopathy Lateral structures LCL: Mild proximal signal abnormality Biceps femoris: Intact IT band: Intact Popliteus tendon: Mild insertional tendinopathy Anterior structures Extensor mechanism: Moderate insertional tendinopathy of the quadriceps, with insertional ganglions a t the patella. Mild proximal patellar edema Fat pads: Mild to moderate edema in quadriceps fat pad and Hoffa's fat pad. There is also diffuse sub cutaneous edema, including in the prepatellar tissues. Medial retinaculum: Intact. Trochlea: Unremarkable morphology. Bone and joint Bones: No acute fracture. Cartilage: Overall moderate degenerative changes with osteophytes and joint space narrowing. There is cartilage heterogeneity and high-grade areas of cartilage loss, particularly in the medial compartme nt with subchondral edema. Degenerative changes also seen with subchondral cysts in the proximal tibi ofibular joint, proximal fibular partially seen. Intraosseous cystic changes. Joint space: Moderate to large effusion, with evidence of synovitis Khan's cyst: None Soft tissues: Moderate diffuse subcutaneous edema. IMPRESSION: Moderate degenerative changes, particularly the medial compartment. Degenerative changes also affect the proximal tibiofibular joint, with subchondral cysts. Intraosseous cysts/ganglions are seen in the proximal fibula and patella. Extensor mechanism tendinopathy, moderate. Moderate to large joint effusion. Internal debris and evidence of synovitis. Hoffa's fat pad and quad riceps fat pad edema. Complex medial and lateral meniscal tears as described above. Cruciate ligaments are intact. Proximal collateral ligament sprains versus sequela of prior injury/sc arring. Diffuse subcutaneous edema. Reviewed by: Carlos Enrique Dumas MD on 09/06/2023 7:27 PM PST Approved by: Carlos Enrique Dumas MD on 09/06/2023 7:27 PM PST Station ID: [id number]
== END 2023-09-06 12:53 | disposition home or self-care (01) ==
LOC: DI 12:52
PROVIDERS: ATTEND Internal Medicine
DX: M17.11 Unilateral primary osteoarthritis, right knee (principal); M25.861 Other specified joint disorders, right knee; M67.863 Other specified disorders of tendon, right knee; M25.461 Effusion, right knee; R93.6 Abnormal findings on diagnostic imaging of limbs; R93.89 Abnormal findings on diagnostic imaging of other specified body structures; R31.9 Hematuria, unspecified; N20.0 Calculus of kidney; J90 Pleural effusion, not elsewhere classified; I71.40 Abdominal aortic aneurysm, without rupture, unspecified; N32.89 Other specified disorders of bladder
CPT/HCPCS: 73721; 74178; Q9967

== ENCOUNTER 2023-09-06 12:54 | Outpatient (CLI) | payer MEDICARE ==
[~2023-09-06 12:54] MED LIST: iohexoL-300 100 ML VIAL ONE
[2023-09-06] MEDS: iohexoL-300 100 ML VIAL IVP ONE (14:20)
--- NOTE | 2023-09-06 22:46 | CT Report ---
PROCEDURE: IVP INDICATIONS: HEMATURIA CONTRAST: Omni 300 140ml TECHNIQUE: A [address] of the abdomen and pelvis was performed. Non-contrast and contrast images were recorded and evaluated at appropriate window settings. Images were recorded and evaluated at appropriate windo w settings. Reformats: coronal and sagittal. For radiation dose reduction, the following was used: au tomated exposure control, adjustment of convex left scoliosis. 3 interval casting with improved align ment at the tibia and fibula fractures. MA and/or kV according to patient size. COMPARISON: CT abdomen pelvis 02/16/2023. FINDINGS: Image quality: Diagnostic. Urinary system: Atrophic right kidney. No hydronephrosis or nephrolithiasis on pre-contrast images. No solid masses or complex cysts which require follow up. The opacified renal calyces and ureters cathy ear normal, without filling defect. Trabeculated urinary bladder. No calcified bladder stones. No fi lling defect within the opacified bladder. OTHER Lower chest: Trace bilateral pleural effusion. Post median sternotomy. Prominent heart size. Small hi atal hernia. Liver: No solid mass. Gallbladder and biliary tree: Surgically absent. No biliary dilation, accounting for post-cholecystec chidi state. Spleen: No splenomegaly. Pancreas: No pancreatic ductal dilation. Adrenals: No adrenal nodule. Stomach, bowel and peritoneum: No bowel distension. No pathologic free fluid. Diverticulosis. Normal appendix. Abdominal Lymph nodes: No central or retroperitoneal adenopathy. Vessels: Infrarenal abdominal aortic and ureters and measuring 3.9 cm, (), previously 3.7 cm. An eurysm sac is partially thrombosed as before. 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 Reproductive organs: Prostate fiducial markers. Prior TURP. Pelvic Lymph nodes: Unremarkable. Bones: No aggressive osseous abnormality. Other: Intramuscular hypodensity anterior to the right proximal femur, (), partially visualized and not seen on prior exam. There is peripheral in enhancement suspected. Fat-containing left inguin al hernia. IMPRESSION: 1. Trace bilateral pleural effusions, new. 2. No kidney stones. No hydronephrosis. Atrophic right kidney. 3. No solid renal mass. No upper urinary tract filling defect. 4. Trabeculated urinary bladder. 5. Abdominal aortic aneurysm measuring 3.9 cm appears slightly increased in size. 6. Anterior to the proximal right femur there is an intramuscular hypodensity with peripheral enhance ment. This is partially visualized and is indeterminate. This could represent a small intramuscular l esion or abscess. This could be further evaluated with targeted ultrasound or MRI. Recommend clinical correlation. Reviewed by: Colton Chavez MD on 09/06/2023 10:44 PM PST Approved by: Colton Chavez MD on 09/06/2023 10:44 PM PST Station ID: [id number]
== END 2023-09-06 12:55 | disposition home or self-care (01) ==
LOC: DI 12:54
PROVIDERS: ATTEND Internal Medicine
DX: R31.9 Hematuria, unspecified (principal); N20.2 Calculus of kidney with calculus of ureter; J90 Pleural effusion, not elsewhere classified; I71.40 Abdominal aortic aneurysm, without rupture, unspecified; R93.6 Abnormal findings on diagnostic imaging of limbs; R93.89 Abnormal findings on diagnostic imaging of other specified body structures; N32.89 Other specified disorders of bladder
CPT/HCPCS: 74178; Q9967

== ENCOUNTER 2023-10-13 08:00 | Outpatient (CLI) | payer MEDICARE ==
--- NOTE | 2023-10-13 16:43 | XRAY Report ---
PROCEDURE: Knee 2 View RT INDICATIONS: RIGHT KNEE PAIN TECHNIQUE: 2 weight bearing frontal views of the right knee are provided COMPARISON: None. FINDINGS: Bones: Note is made of chondrocalcinosis, the degenerative joint disease of the right knee especially of the medial compartment. No fractures or dislocations. No suspicious bony lesions. Soft tissues: Cannot evaluate for joint effusion on the frontal view. No radiographically evident sof t tissue swelling noted. IMPRESSION: DJD of the right knee Reviewed by: Jas Nick MD on 10/13/2023 4:42 PM PDT Approved by: Jas Nick MD on 10/13/2023 4:42 PM PDT Station ID: [id number]
== END 2023-10-13 23:59 | disposition home or self-care (01) ==
LOC: DI.WOS 08:00
PROVIDERS: ATTEND Physician Assistant Surgical
DX: M17.11 Unilateral primary osteoarthritis, right knee (principal)